=== PATIENT | female | born 1940 | race Caucasian/White ===

== ENCOUNTER 2019-08-31 16:06 | Inpatient (IN) ==
[2019-08-31] MEDS ORDERED: OPTIRAY 320 125ml IV PRN (16:19)
--- NOTE | 2019-08-31 16:26 | CT Scan Report ---
HEAD CT NONCONTRAST CT DOSE: 537.48 mGy.cm HISTORY: Stroke symptoms. Slurred speech. Facial droop. TECHNIQUE: Multiaxial CT images of the head were performed without the use of intravenous contrast. A utomated exposure control was utilized for this study. A dose lowering technique was utilized adheri ng to the principles of ALARA. Comparison: None. Findings: The paranasal sinuses and mastoid air cells are clear. The calvarium and skull base are int act. There is no mass, hematoma, midline shift, acute infarct. White matter hypodensity is nonspecifi c but suggestive of microvascular ischemic change. The ventricles and sulci demonstrate mild age-rela josesito involutional changes. Old lacunar infarcts within the left basal ganglia. Impression: No acute intracranial abnormality. Atrophy and microvascular ischemic changes. Electronically signed by: Jamal Murray M.D. 08/31/2019 4:25 PM
--- NOTE | 2019-08-31 16:39 | CT Scan Report ---
CT angio head w con CLINICAL HISTORY: 79 years-old Female presenting with left-sided weakness, concern for stroke. TECHNIQUE: Multidetector CT angiography of the head was performed after the administration of intrave nous contrast. 3-D volumetric and/or maximum intensity projection (MIP) images were subsequently boby nstructed for review. IV contrast: 119 mL of Optiray 320. One or more dose lowering techniques were u sed consistent with the principles of ALARA (as low as reasonably achievable), including automatic ex posure control, mA or kV adjustment to individual patient size, and/or use of iterative reconstructio n. COMPARISON: None. CT DOSE (mGy.cm): The estimated cumulative dose is 545.95. FINDINGS: Wet Washer Machine topogram: Unremarkable. Anterior circulation: Saccular aneurysm arising from the cavernous segment of the right internal arredondo tid artery, which massively expands the lumen along the medial wall with an overall measurement of 12 x 12 mm. Atherosclerosis of the bilateral cavernous segments. Anterior cerebral arteries patent. Mid dle cerebral arteries patent. Anterior communicating artery patent. Posterior circulation: Codominant vertebral arteries. Intradural portions of the vertebral arteries p atent. Posterior inferior cerebellar arteries patent. The basilar artery is patent with a bulbous melany earing basilar tip. Aneurysmally dilated basilar tip with a wide communication to the artery and its major branch vessels. Anterior inferior cerebellar arteries poorly visualized. Superior cerebellar ar teries patent. Posterior cerebral arteries patent. Posterior communicating arteries patent. Dural venous sinuses: Patent. Other: Allowing for the phase of contrast, brain parenchyma within normal limits. Calvarium intact. IMPRESSION: 1. 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 2. Aneurysm/aneurysmally dilated basilar tip with wide communication to the parent vessel and adjace nt major branch vessels. 3. No evidence of an intracranial stenosis or dissection. No focal occlusion. Electronically signed by: Hany Guzmán M.D. 08/31/2019 4:38 PM
--- NOTE | 2019-08-31 16:41 | CT Scan Report ---
NECK CTA HISTORY: Left-sided weakness. TECHNIQUE: Multiaxial CT images of the neck were performed following the intravenous administration o f contrast to evaluate the major cervical vessels. Maximum intensity projection images were also obta ined. All measurements were calculated based on NASCET criteria. A dose lowering technique was utili zed adhering to the principles of ALARA. COMPARISON STUDY: None. FINDINGS: The aortic arch and proximal great vessels are widely patent. No significant stenosis, occ lusion, or dissection within the bilateral vertebral arteries or bilateral common carotid arteries. M oderate calcified plaque within the bilateral carotid bifurcations. This results in up to 75% narrowi ng within the proximal bilateral internal carotid arteries. Tortuous and mild irregularity within the bilateral internal carotid arteries. There are 2 focal short segment dissections within the proximal left internal carotid artery best seen on image 238 and within the mid left internal carotid artery on image 265. Both lumens opacify. No evidence for arterial occlusion. Mild aneurysmal dilatation of the distal left internal carotid artery measuring up to 6 mm in diameter. Refer to same day head CT f or further evaluation of the skull base aneurysms. Emphysema. IMPRESSION: 1. 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 However, both lumens opacify. These are age indeterminate. 2. Up to 75% focal narrowing within the proximal bilateral internal carotid artery due to the calcifi ed plaque. 3. Tortuous and mild irregularity of the bilateral internal carotid arteries. Mild aneurysmal dilatat ion of the distal left internal carotid artery measure up to 6 mm in diameter. Electronically signed by: Jamal Murray M.D. 08/31/2019 4:40 PM
[2019-08-31 16:56] LABS: Basophils # (auto) 0.02 K/uL (0-0.2); Basophils % (auto) 0.3 %; Eosinophils # (auto) 0.27 K/uL (0-0.5); Eosinophils % (auto) 3.7 %; Hematocrit (blood only) 37.2 % (37-47); Hemoglobin 12.1 g/dL (12.0-16.0); Immature Granulocytes # (auto) 0.02 K/uL (0.00-0.02); Immature Granulocytes % (auto) 0.3 %; Lymphocytes # (auto) 2.43 K/uL (1.2-3.4); Lymphocytes % (auto) 33.1 %; Mean Corpuscular Hemoglobin 32.4 pg (25-34); Mean Corpuscular Hgb Conc 32.5 g/dL (32-36); Mean Corpuscular Volume 99.5 fL (80-100); Mean Platelet Volume 9.8 fL (7.4-10.4); Monocytes % (auto) 9.5 %; Neutrophils % (auto) 53.1 %; Platelet Count 172 K/uL (130-400); RDW Coefficient of Variation 14.1 % (11.5-14.5); Red Blood Count 3.74 M/uL (4.2-5.4); White Blood Count 7.34 K/uL (4.8-10.8)
--- NOTE | 2019-08-31 17:09 | XRay Report ---
XR chest 1V portable CLINICAL HISTORY: 79 years-old Female presenting with cva. TECHNIQUE: Portable upright AP view of the chest was obtained. COMPARISON: None. FINDINGS: Atherosclerosis of the aortic arch. Cardiac silhouette enlarged. Mild pulmonary vascular prominence. Heterogeneity lung parenchyma. Minimal basilar opacities. No pleural effusion or pneumothorax. Advanc ed degenerative changes and deformity of the left glenohumeral joint. Suspected underlying osteopenia . Upper abdomen normal. IMPRESSION: 1. Cardiomegaly with mild volume overload. No advanced congestive change or pulmonary edema. 2. Minimal bibasilar opacities likely atelectasis. Electronically signed by: Hany Guzmán M.D. 08/31/2019 5:08 PM
[2019-08-31 17:29] LABS: Alanine Aminotransferase 16 U/L (12-78); Albumin Globulin Ratio 0.9 (0.9-2); Albumin Level 3.3 gm/dl (3.4-5.0); Alkaline Phosphatase 66 U/L (45-117); BUN Creatinine Ratio 22.1 (10-20); Bilirubin,Total 0.4 mg/dl (0.2-1); Blood Urea Nitrogen 22 mg/dl (7-18); Calcium 8.9 mg/dl (8.5-10.1); Carbon Dioxide 22 mmol/L (21-32); Chloride 106 mmol/L (98-107); Creatinine Clr Calc Pharmacy 43.5 ml/min; Est GFR (African American) 61.3; Est GFR (Non-African American) 52.9; Globulin 3.7 gm/dl (2.5-4.0); Glucose 101 mg/dl (70-99); Sodium 136 mmol/L (136-145); Troponin I < 0.015 ng/ml (0-0.045)
--- NOTE | 2019-08-31 18:15 | History & Physical Report ---
Date of Service August 31, 2019 Assessment & Plan (1) TIA (transient ischemic attack): (2) Brain aneurysm: -Admit to [facility] with telemetry -Stroke order set completed -Neurology consulted, Dr. 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 A neurysm/aneurysmally dilated basilar tip with wide communication to the parent vessel and adjacent major branch vessels. No evidence of intracranial stenosis or dissection. No focal occlusion. -CT of the neck shows 75% focal narrowing within proximal bilateral internal carotid artery due to calcified plaque. Mild aneurysmal dilation of the distal left internal carotid measuring 6 mm -CT of the head is negative for acute intracranial abnormality -Follow UA as pt reports hx of UTIs and having episodes like this in the early phases of infection. Unable to provide a sample. Allow for attempt at clean catch per pt request, if not then will need straight cath. (3) Ischemic heart disease: (4) CAD (coronary artery disease): -ASA and Plavix as above -Hx of VT in Sep 2017 with 1 stent, unknown stent location. Procedure was done at [facility] in [place], [place]. (5) Chronic diastolic CHF (congestive heart failure): -Does not appear to be in any acute exacerbation -Continue Lasix, beta-hakeem, BLANK as above (6) HTN (hypertension): -Continue Lasix 20 mg every morning, ASA, metoprolol tartrate 75 mg BID (7) HLD (hyperlipidemia): -Continue atorvastatin 80 mg every afternoon, check a.m. fasting lipid panel (8) Osteoporosis: -Continue multivitamin, calcium, vitamin D, aldendromate 70 mg weekly (9) Vascular dementia: -Noted, no behavioral disturbances (10) Hypothyroidism: Levothyroxine 88 mcg daily (11) DVT prophylaxis: -Plavix, aspirin, teds CODE STATUS: DNR Disposition: From [facility] to assist with discharge planning, PT and OT consult (12) Depression: - phenelzine not available in house, daughter planning on bringing this from [facility] to continue while inpatient. - Stable on medication History of Present Illness Primary Care Provider: [facility] [place] This is a 79 yo F who resides in [facility] with PMHx of chronic diastolic CHF, HTN, CAD, history of syncope and collapse, HLD, ischemic heart disease, hypothyroidism, vascular dementia without behavioral disturbance, osteoporosis, history of UTI, who presents with acute strokelike symptoms. 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 It was also noted that she likely has vascular dementia. The patient is here with her daughter at bedside. She states that she woke up this morning and walked herself to breakfast, ate without any difficulty, then continued to go about her day but did not feel quite herself. She walked to the [facility] in [facility] to see one of the PAs on staff due to not feeling right. She noticed that she was having difficulty with walking and leaning towards the left side. She denies any slurred speech, blurry or double vision, or specific weakness. It was noted that she may have had a left upper extremity weakness earlier however this has completely resolved at this time. She denies any other acute complaints. Stroke protocol was initiated upon the patient's arrival to the ER. Dr. Woodruff, interventional neurologist, was consulted initially, and would like to see the patient for follow-up in his office in [place] in 2 weeks to follow-up 12 x 12 mm saccular aneurysm in the right ICA which was seen on CTA. Allergies Allergy/AdvReac Type Severity Reaction Status Date / Time bee venom protein (honey bee) Allergy Unknown Verified 08/31/19 17:25 codeine Allergy Unknown Verified 08/31/19 17:25 levofloxacin [From Levaquin] Allergy Unknown Verified 08/31/19 17:25 meperidine [From Demerol] Allergy Unknown Verified 08/31/19 17:25 morphine Allergy Unknown Verified 08/31/19 17:25 Home Medications Home Medications Medication Instructions Recorded Confirmed Type acetaminophen 650 mg 650 mg PO Q6 PRN tab 07/13/19 08/31/19 History tablet,extended release alendronate 70 mg tablet 70 mg PO WEEKLY tab 07/13/19 08/31/19 History aspirin 81 mg tablet,delayed 81 mg PO DAILY 07/13/19 08/31/19 History release atorvastatin 80 mg tablet 80 mg PO QPM 07/13/19 08/31/19 History clopidogrel 75 mg tablet 75 mg PO DAILY 07/13/19 08/31/19 History furosemide 20 mg tablet 20 mg PO QAM 07/13/19 08/31/19 History levothyroxine 88 mcg capsule 88 mcg PO DAILY 07/13/19 08/31/19 History lisinopril 5 mg tablet 5 mg PO DAILY 07/13/19 08/31/19 History melatonin 5 mg tablet 5 mg PO HS 07/13/19 08/31/19 History metoprolol tartrate 75 mg tablet 75 mg PO BID 07/13/19 08/31/19 History multivitamin 1 tab PO DAILY 07/13/19 08/31/19 History phenelzine 15 mg tablet 30 mg PO BID tab 07/13/19 08/31/19 History potassium chloride 20 mEq 20 meq PO BID 07/13/19 08/31/19 History tablet,extended release psyllium 1 pkt PO DAILY ea 07/13/19 08/31/19 History white petrolatum 1 applic TOPICAL UD PRN 07/13/19 08/31/19 History acetaminophen [Tylenol Arthritis 650 mg PO TID 08/31/19 08/31/19 History Pain] calcium carbonate-vitamin D3 1 tab PO DAILY 08/31/19 08/31/19 History [Calcium 600 + D(3)] ceramides 1,3,6-11 [CeraVe] 1 applic TOPICAL UD PRN 08/31/19 08/31/19 History gabapentin [Neurontin] 300 mg PO HS 08/31/19 08/31/19 History Past Med/Surg History Medical History (Updated 08/31/19 @ 18:53 by Yomaira Jurado PA-C) CAD (coronary artery disease) Chronic diastolic CHF (congestive heart failure) Coronary artery sclerosis Depression HLD (hyperlipidemia) HTN (hypertension) Hypothyroidism Ischemic heart disease Osteoporosis TIA (transient ischemic attack) Vascular dementia Social History Preferred Language: Scottish Communication Ability: Effective Coding Director Required: No Beliefs That Will Affect Care: None Current Living Situation: Care Home Current Living Situation Comment: [facility] Other Information That Helps Us Care for You: No Feels Safe at Home: Yes Safety Concerns: Feels Safe At This Time Smoking Status: Former smoker Hx Alcohol Use: No Hx Substance Use: No Review of Systems Review of Systems: Constitutional: No fever, sweats or chills Eyes: No diplopia, no worsening or blurred vision ENT: normal hearing, no trouble swallowing Respiratory: No cough, sputum, dyspnea at rest or on exertion Cardiovascular: No chest pain, tightness or palpitations Abdomen: No pain, nausea, vomiting, diarrhea or constipation Musculoskeletal: No joint pain, calf pain, swelling Neurologic: No weakness, numbness/tingling, or balance problems Psychiatric: No anxiety or depression Skin: No rash or itch Physical Exam Physical Exam: General: awake, alert, no apparent distress Head: Normocephalic, atraumatic ENT: PERRL, EOMI, no pharyngeal exudate, mucous membranes moist Chest: Clear to auscultation, on room air, no adventitious breath sounds Cardiac: Regular rate and rhythm, + systolic ejection murmur, no JVD, normal peripheral pulses, good capillary refill Abdominal: NABS x 4 quadrants, soft, nondistended, nontender to palpation, no rebound, guarding or tenderness Extremities: Normal inspection, no peripheral edema or erythema, calfs nontender to palpation Psych: Normal mood and affect Neuro: AAO x 3, strength intact bilaterally and rated 5/5, no motor deficits, speech is clear, no peripheral sensory deficits Skin: no rash or erythema Constitutional: WD/WN, vitals as above Eyes: normal visual rodriguez by confrontation and + anicteric sclerae Neck: normal visual inspection and trachea midline Respiratory: normal respiratory effort, lungs clear to auscultation Cardiovascular: Rate/Rhythm: regular rate and regular rhythm Gastrointestinal (Abdomen): Inspection/Auscultation: abdomen not distended Percussion/Palpation: abdomen soft; abdomen nontender Musculoskeletal: Head/Neck/Chest: normocephalic and head atraumatic Neg for peripheral LE edema, + pedal pulses Skin: no rashes, warm and dry Neurologic: awake; not confused Speech / Cognition: normal speech Psychiatric: A+Ox3, euthymic affect Lymphatic: Exam as done by Giselle Katz DO Results & Data Vital Signs (Past 12 Hours) Vital Signs Temp Pulse Pulse Resp BP BP Pulse Ox 08/31/19 17:31 60 16 95/78 L 96 08/31/19 17:30 58 L 15 97 08/31/19 17:21 58 L 18 141/65 H 97 08/31/19 17:20 58 L 18 97 08/31/19 17:11 60 21 141/45 H 97 08/31/19 17:10 60 18 97 08/31/19 17:02 62 21 96 08/31/19 17:01 62 17 161/69 H 97 08/31/19 17:00 69 19 98 08/31/19 16:51 63 26 H 159/80 H 96 08/31/19 16:50 63 20 97 08/31/19 16:43 63 21 175/62 H 96 08/31/19 16:40 63 18 96 08/31/19 16:35 66 16 95 08/31/19 16:13 37.3 C 70 70 17 175/62 H 175/62 [address] angio head w con CLINICAL HISTORY: 79 years-old Female presenting with left-sided weakness, concern for stroke. TECHNIQUE: Multidetector CT angiography of the head was performed after the administration of intravenous contrast. 3-D volumetric and/or maximum intensity projection (MIP) images were subsequently reconstructed for review. IV contrast: 119 mL of Optiray 320. One or more dose lowering techniques were used consistent with the principles of ALARA (as low as reasonably achievable), including automatic exposure control, mA or kV adjustment to individual patient size, and/or use of iterative reconstruction. COMPARISON: None. CT DOSE (mGy.cm): The estimated cumulative dose is 545.95. FINDINGS: Card Decorator topogram: Unremarkable. Anterior circulation: Saccular aneurysm arising from the cavernous segment of the right internal carotid artery, which massively expands the lumen along the medial wall with an overall measurement of 12 x 12 mm. Atherosclerosis of the bilateral cavernous segments. Anterior cerebral arteries patent. Middle cerebral arteries patent. Anterior communicating artery patent. Posterior circulation: Codominant vertebral arteries. Intradural portions of the vertebral arteries patent. Posterior inferior cerebellar arteries patent. The basilar artery is patent with a bulbous appearing basilar tip. Aneurysmally dilated basilar tip with a wide communication to the artery and its major branch vessels. Anterior inferior cerebellar arteries poorly visualized. Superior cerebellar arteries patent. Posterior cerebral arteries patent. Posterior communicating arteries patent. Dural venous sinuses: Patent. Other: Allowing for the phase of contrast, brain parenchyma within normal limits. Calvarium intact. IMPRESSION: 1. 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 2. Aneurysm/aneurysmally dilated basilar tip with wide communication to the parent vessel and adjacent major branch vessels. 3. No evidence of an intracranial stenosis or dissection. No focal occlusion. XR chest 1V portable CLINICAL HISTORY: 79 years-old Female presenting with cva. TECHNIQUE: Portable upright AP view of the chest was obtained. COMPARISON: None. FINDINGS: Atherosclerosis of the aortic arch. Cardiac silhouette enlarged. Mild pulmonary vascular prominence. Heterogeneity lung parenchyma. Minimal basilar opacities. No pleural effusion or pneumothorax. Advanced degenerative changes and deformity of the left glenohumeral joint. Suspected underlying osteopenia. Upper abdomen normal. IMPRESSION: 1. Cardiomegaly with mild volume overload. No advanced congestive change or pulmonary edema. 2. Minimal bibasilar opacities likely atelectasis. NECK CTA HISTORY: Left-sided weakness. TECHNIQUE: Multiaxial CT images of the neck were performed following the intravenous administration of contrast to evaluate the major cervical vessels. Maximum intensity projection images were also obtained. All measurements were calculated based on NASCET criteria. A dose lowering technique was utilized adhering to the principles of ALARA. COMPARISON STUDY: None. FINDINGS: The aortic arch and proximal great vessels are widely patent. No significant stenosis, occlusion, or dissection within the bilateral vertebral arteries or bilateral common carotid arteries. Moderate calcified plaque within the bilateral carotid bifurcations. This results in up to 75% narrowing within the proximal bilateral internal carotid arteries. Tortuous and mild irregularity within the bilateral internal carotid arteries. There are 2 focal short segment dissections within the proximal left internal carotid artery best seen on image 238 and within the mid left internal carotid artery on image 265. Both lumens opacify. No evidence for arterial occlusion. Mild aneurysmal dilatation of the distal left internal carotid artery measuring up to 6 mm in diameter. Refer to same day head CT for further evaluation of the skull base aneurysms. Emphysema. IMPRESSION: 1. 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 However, both lumens opacify. These are age indeterminate. 2. Up to 75% focal narrowing within the proximal bilateral internal carotid artery due to the calcified plaque. 3. Tortuous and mild irregularity of the bilateral internal carotid arteries. Mild aneurysmal dilatation of the distal left internal carotid artery measure up to [address] diameter[address] HEAD CT NONCONTRAST CT DOSE: 537.48 mGy.cm HISTORY: Stroke symptoms. Slurred speech. Facial droop. TECHNIQUE: Multiaxial CT images of the head were performed without the use of intravenous contrast. Automated exposure control was utilized for this study. A dose lowering technique was utilized adhering to the principles of ALARA. Comparison: None. Findings: The paranasal sinuses and mastoid air cells are clear. The calvarium and skull base are intact. There is no mass, hematoma, midline shift, acute infarct. White matter hypodensity is nonspecific but suggestive of microvascular ischemic change. The ventricles and sulci demonstrate mild age-related involutional changes. Old lacunar infarcts within the left basal ganglia. Impression: No acute intracranial abnormality. Atrophy and microvascular ischemic changes. ECG Additional Comments: 31-AUG-2019 16:31:10 [facility]-EDSTAT ROUTINE RETRIEVAL Normal sinus rhythm Possible Left atrial enlargement Borderline ECG No previous ECGs available 25mm/s 10mm/mV 150Hz 9.0.9 12SL 241 PITER: 13 Unconfirmed Vent. rate 67 BPM FL interval 188 ms QRS duration 66 ms QT/QTc 442/467 ms P-R-T axes 63 57 52 Code Status & VTE Plan Code Status DNR-discussed with the patient and her daughter at bedside VTE Prophylaxis Plan VTE Prophylaxis will be ordered: Yes Supervising Physician Co-Signing Physician Notes Pt seen and examined by me. States she feels at her usual at present. No further weakness or slurred speech. Denies chest pain or SOB. Tolerating PO without issue. Agree with HPI/ROS as noted by PA See above for my exam in PE section Agree with plan as outlined above TIA vs CVA, given quick resolution of sx-likely TIA [facility] recs for stroke workup Pt is hesitant about MRI, has required PRN ativan in the past, but not with most recent MRI per daughter Pt is also worried about ativan dosing, will use 0.25mg if needed and can repeat x1 Aneurysms noted [facility] interventional neurology, Dr. Woodruff, recs for f/u with him in 2 weeks. CM to assist in planning Believes unlikely to have caused sx Pt takes aspirin/plavix at baseline PG Care Time/CCT Total # of Minutes Spent Total Time Spent with Patient: Total time spent is greater than 50% in coordination of care (as documented) at patient's floor/unit and/or counseling patient:
[2019-08-31 18:18] LABS: Partial Thromboplastin Ratio 0.9; Partial Thromboplastin Time 25.3 Seconds (21.0-31.0); Prothrombin Time 10.2 Seconds (9.0-12.0)
[2019-08-31 18:21] LABS: Potassium 4.8 mmol/L (3.5-5.1)
[2019-08-31 18:25] LABS: Magnesium 2.2 mg/dl (1.8-2.4)
[2019-08-31] MEDS ORDERED: PHARMACIST DISCHARGE MED REC CONSULT PRN (19:51)
[2019-08-31] MEDS ORDERED: LORazepam 0.25 MG/0.5 ML VIAL IV PRN (19:51)
[2019-08-31 20:05] LABS: Appearance Urine Clear (Clear); Bilirubin Urine Negative (Negative); Blood Urine Negative (Negative); Color Urine Yellow; Glucose Urine UA Negative (Negative); Ketones Urine Negative (Negative); Leukocyte Esterase Urine Negative (Negative); Nitrite Urine Negative (Negative); Protein Urine Negative (Negative); Specific Gravity Urine 1.045 (1.000-1.030); Urobilinogen Urine Negative (Negative)
[2019-08-31] MEDS ORDERED: ACETAMINOPHEN 325 MG TAB PO PRN (20:21)
[2019-08-31] MEDS ORDERED: PHENELZINE 15 MG PO SCH (21:00)
[2019-08-31] MEDS ORDERED: NON-FORMULARY MEDICATION (Melatonin 5 MG) PO SCH (21:00)
[2019-08-31] MEDS: ACETAMINOPHEN 325 MG TAB PO SCH (21:34)
[2019-08-31] MEDS: ATORVASTATIN 40 MG TAB PO SCH (21:35)
[2019-08-31] MEDS: METOPROLOL TARTRATE 25 MG TAB PO SCH (21:36)
[2019-08-31] MEDS: GABAPENTIN 300 MG CAP PO SCH (21:36)
[2019-08-31] MEDS: POTASSIUM CHLORIDE 20 MEQ TABCR PO SCH (21:36)
--- NOTE | 2019-08-31 22:45 | Emergency Department Note ---
Entered by Nicole Moss acting as a scribe for History of Present Illness General Chief complaint: Stroke Alert Stated complaint: STROKE ALERT Source: patient and EMS Mode of arrival: EMS History of Present Illness Onset (ago): hour(s) (1500 today) Location: head (weakness) Severity: similar to prior episodes Pain Consistency: + other (sudden) Quality: + other (weakness) Associated symptoms: + weakness and + other (Slurred speech, facial droop) Treatments prior to arrival: none The patient is a 79 year old female presenting to the Emergency Department via EMS complaining of sudden weakness starting at 1500 today. EMS reports that the patient resides at [facility] in the Dementia unit. They state that the patients left upper and lower extremity were weaker than her right upper and lower extremities. They explain that the patient had a left sided facial droop and was slurring her speech. They note that the patients weakness has since resolved. They add that the patients last known well time was 1500. 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 The patients daughter who is at bedside reports that the patient has vascular dementia and has a history of TIAs. She states that she was not with the patient when the patients symptoms began. She notes that the patient regularly takes Plavix. The patient reports that she did not feel right at 1500 today. She states that she came out of her room at that time and told a nurse. Home Medications Home Medications Medication Instructions Recorded Confirmed Type acetaminophen 650 mg 650 mg PO Q6 PRN tab 07/13/19 08/31/19 History tablet,extended release alendronate 70 mg tablet 70 mg PO WEEKLY tab 07/13/19 08/31/19 History aspirin 81 mg tablet,delayed 81 mg PO DAILY 07/13/19 08/31/19 History release atorvastatin 80 mg tablet 80 mg PO QPM 07/13/19 08/31/19 History clopidogrel 75 mg tablet 75 mg PO DAILY 07/13/19 08/31/19 History furosemide 20 mg tablet 20 mg PO QAM 07/13/19 08/31/19 History levothyroxine 88 mcg capsule 88 mcg PO DAILY 07/13/19 08/31/19 History lisinopril 5 mg tablet 5 mg PO DAILY 07/13/19 08/31/19 History melatonin 5 mg tablet 5 mg PO HS 07/13/19 08/31/19 History metoprolol tartrate 75 mg tablet 75 mg PO BID 07/13/19 08/31/19 History multivitamin 1 tab PO DAILY 07/13/19 08/31/19 History phenelzine 15 mg tablet 30 mg PO BID tab 07/13/19 08/31/19 History potassium chloride 20 mEq 20 meq PO BID 07/13/19 08/31/19 History tablet,extended release psyllium 1 pkt PO DAILY ea 07/13/19 08/31/19 History white petrolatum 1 applic TOPICAL UD PRN 07/13/19 08/31/19 History acetaminophen [Tylenol Arthritis 650 mg PO TID 08/31/19 08/31/19 History Pain] calcium carbonate-vitamin D3 1 tab PO DAILY 08/31/19 08/31/19 History [Calcium 600 + D(3)] ceramides 1,3,6-11 [CeraVe] 1 applic TOPICAL UD PRN 08/31/19 08/31/19 History gabapentin [Neurontin] 300 mg PO HS 08/31/19 08/31/19 History Allergies Allergy/AdvReac Type Severity Reaction Status Date / Time bee venom protein (honey bee) Allergy Unknown Verified 08/31/19 17:25 codeine Allergy Unknown Verified 08/31/19 17:25 levofloxacin [From Levaquin] Allergy Unknown Verified 08/31/19 17:25 meperidine [From Demerol] Allergy Unknown Verified 08/31/19 17:25 morphine Allergy Unknown Verified 08/31/19 17:25 Past Med/Surg History Medical History (Updated 08/31/19 @ 18:53 by Yomaira Jurado PA-C) CAD (coronary artery disease) Chronic diastolic CHF (congestive heart failure) Coronary artery sclerosis Depression HLD (hyperlipidemia) HTN (hypertension) Hypothyroidism Ischemic heart disease Osteoporosis TIA (transient ischemic attack) Vascular dementia Social History Preferred Language: Georgian Communication Ability: Effective Supervisor Carbon Electrodes Required: No Beliefs That Will Affect Care: None Current Living Situation: Long Term Current Living Situation Comment: [facility] Other Information That Helps Us Care for You: No Feels Safe at Home: Yes Safety Concerns: Feels Safe At This Time Smoking Status: Former smoker Hx Alcohol Use: No Hx Substance Use: No Review of Systems See HPI for pertinent positives & negatives. and A total of 10 systems reviewed and were otherwise negative Physical Exam Vital Signs Vital Signs - 24 hr 08/31/19 16:13 08/31/19 16:35 08/31/19 16:40 Temperature 37.3 C Temperature Source Oral Pulse Rate 70 66 63 Pulse Rate [Finger] 70 Pulse Rate from SpO2 Sensor 67 64 Respiratory Rate 17 16 18 Blood Pressure 175/62 H Blood Pressure [Right Arm] 175/62 H Blood Pressure Mean 99 Blood Pressure Mean [Right Arm] 99 Pulse Oximetry 96 95 96 Oxygen Delivery Method Nasal Cannula Nasal Cannula Nasal Cannula Oxygen Flow Rate 3 3 3 Sepsis Recent Fever Within 48 Hours No Sepsis New/Unexplained Change in Mental Status No Sepsis Action Taken by Nursing No Action Required 08/31/19 16:43 08/31/19 16:50 08/31/19 16:51 Temperature Temperature Source Pulse Rate 63 63 63 Pulse Rate [Finger] Pulse Rate from SpO2 Sensor 63 63 64 Respiratory Rate 21 20 26 H Blood Pressure 175/62 H 159/80 H Blood Pressure [Right Arm] Blood Pressure Mean 74 111 Blood Pressure Mean [Right Arm] Pulse Oximetry 96 97 96 Oxygen Delivery Method Nasal Cannula Nasal Cannula Nasal Cannula Oxygen Flow Rate 3 3 3 Sepsis Recent Fever Within 48 Hours Sepsis New/Unexplained Change in Mental Status Sepsis Action Taken by Nursing 08/31/19 17:00 08/31/19 17:01 08/31/19 17:02 Temperature Temperature Source Pulse Rate 69 62 62 Pulse Rate [Finger] Pulse Rate from SpO2 Sensor 63 62 62 Respiratory Rate 19 17 21 Blood Pressure 161/69 H Blood Pressure [Right Arm] Blood Pressure Mean 113 Blood Pressure Mean [Right Arm] Pulse Oximetry 98 97 96 Oxygen Delivery Method Nasal Cannula Nasal Cannula Nasal Cannula Oxygen Flow Rate 3 3 3 Sepsis Recent Fever Within 48 Hours Sepsis New/Unexplained Change in Mental Status Sepsis Action Taken by Nursing 08/31/19 17:10 08/31/19 17:11 08/31/19 17:20 Temperature Temperature Source Pulse Rate 60 60 58 L Pulse Rate [Finger] Pulse Rate from SpO2 Sensor 60 60 58 L Respiratory Rate 18 21 18 Blood Pressure 141/45 H Blood Pressure [Right Arm] Blood Pressure Mean 67 Blood Pressure Mean [Right Arm] Pulse Oximetry 97 97 97 Oxygen Delivery Method Nasal Cannula Nasal Cannula Nasal Cannula Oxygen Flow Rate 3 3 3 Sepsis Recent Fever Within 48 Hours Sepsis New/Unexplained Change in Mental Status Sepsis Action Taken by Nursing 08/31/19 17:21 08/31/19 17:30 08/31/19 17:31 Temperature Temperature Source Pulse Rate 58 L 58 L 60 Pulse Rate [Finger] Pulse Rate from SpO2 Sensor 58 L 57 L 60 Respiratory Rate 18 15 16 Blood Pressure 141/65 H 95/78 L Blood Pressure [Right Arm] Blood Pressure Mean 95 81 Blood Pressure Mean [Right Arm] Pulse Oximetry 97 97 96 Oxygen Delivery Method Nasal Cannula Nasal Cannula Nasal Cannula Oxygen Flow Rate 3 3 3 Sepsis Recent Fever Within 48 Hours Sepsis New/Unexplained Change in Mental Status Sepsis Action Taken by Nursing 08/31/19 17:40 08/31/19 17:41 08/31/19 17:50 Temperature Temperature Source Pulse Rate 59 L 58 L 61 Pulse Rate [Finger] Pulse Rate from SpO2 Sensor 60 58 L 61 Respiratory Rate 19 19 17 Blood Pressure 170/58 H Blood Pressure [Right Arm] Blood Pressure Mean 92 Blood Pressure Mean [Right Arm] Pulse Oximetry 97 97 98 Oxygen Delivery Method Nasal Cannula Nasal Cannula Nasal Cannula Oxygen Flow Rate 3 3 3 Sepsis Recent Fever Within 48 Hours Sepsis New/Unexplained Change in Mental Status Sepsis Action Taken by Nursing 08/31/19 17:51 08/31/19 18:00 08/31/19 18:01 Temperature Temperature Source Pulse Rate 60 58 L 58 L Pulse Rate [Finger] Pulse Rate from SpO2 Sensor 59 L 58 L 58 L Respiratory Rate 17 17 19 Blood Pressure 141/73 H 157/61 H Blood Pressure [Right Arm] Blood Pressure Mean 86 87 Blood Pressure Mean [Right Arm] Pulse Oximetry 98 98 98 Oxygen Delivery Method Nasal Cannula Nasal Cannula Nasal Cannula Oxygen Flow Rate 3 3 3 Sepsis Recent Fever Within 48 Hours Sepsis New/Unexplained Change in Mental Status Sepsis Action Taken by Nursing 08/31/19 18:10 08/31/19 18:11 Temperature Temperature Source Pulse Rate 58 L 58 L Pulse Rate [Finger] Pulse Rate from SpO2 Sensor 58 L 58 L Respiratory Rate 16 17 Blood Pressure 137/61 Blood Pressure [Right Arm] Blood Pressure Mean 100 Blood Pressure Mean [Right Arm] Pulse Oximetry 98 98 Oxygen Delivery Method Nasal Cannula Nasal Cannula Oxygen Flow Rate 3 3 Sepsis Recent Fever Within 48 Hours Sepsis New/Unexplained Change in Mental Status Sepsis Action Taken by Nursing GENERAL: Patient is sitting up in stretcher, on nasal cannula. Talking full sentences. Non-toxic. EYE EXAM: normal conjunctiva, PERRL and EOM's intact OROPHARYNX: no exudate, no erythema, lips, buccal mucosa, and tongue normal and mucous membranes are moist NECK: supple, no nuchal rigidity, no adenopathy, non-tender LUNGS: Clear to auscultation. Normal chest wall mechanics HEART: no murmurs, S1 normal and S2 normal ABDOMEN: abdomen soft, non-tender, normo-active bowel sounds, no masses, no rebound or guarding. BACK: Back is symmetrical on inspection and there is no deformity, no midline tenderness, no CVA tenderness. SKIN: no rashes and no bruising UPPER EXTREMITIES: upper extremities are grossly normal. LOWER EXTREMITIES: No pitting edema. NEURO EXAM: Oriented to person, place and year but not month. Cranial nerves II- XII intact, normal speech, mild weakness with the left upper extremity on flexion extension of the elbow (old per pt), no weakness of legs. No drift. Finger to nose intact. Gross sensation intact. Course Course ED COURSE: Vital signs were reviewed and showed hypertension. The patients medical record was reviewed The above diagnostic studies were performed and reviewed. ED treatments and interventions as stated above. 1605: Upon speaking to EMS, the patient had a left sided facial droop at and left sided weakness. They report that the patients speech is slurred. They states that the patients weakness has resolved but that the patients speech is still slurred. They note that the patients last know well time was 1500 today. 1611: The patient was evaluated in room B1. A complete history and physical examination was performed. 1625 I discussed the patients case with [facility] telestroke neurologist. 1630: Telestroke neurology began to evaluate the patient at this time. 1635: I discussed the patients case with her nurse at [facility]. She reports that the patient was in her room and came out, telling her that she didnt feel right. She states that the patient had slurred speech and that her left upper extremity was week compared to the right. 1636: I updated the patient and her daughter at this time. 1655: I discussed the patients case with Dr. Kacy Gallego Vascular neurologist. He recommends that the patient following up in 2 weeks regarding her aneurysm and focal dissection. He doesnt think they are causing the patie nts symptoms. 1747: I updated the patients daughter at this time. 1800: I discussed the patients case with Dr. Katz [facility] hospitalist. She will evaluate the patient for further management. 1802: Upon reevaluation, I discussed my findings with the patient and her daughter who understands and agrees with the treatment plan. Based on the patients age, coexisting illnesses, exam and lab findings the decision to treat as an inpatient was made. The patient remained stable while under my care. The patient will be evaluated for further management. Administered Medications Acetaminophen (Tylenol) 650 mg PO TID CHARLEEN Stop: 09/30/19 20:59 Last Admin: 08/31/19 21:34 Dose: 650 mg Documented by: [id number] Atorvastatin Calcium (Lipitor) 80 mg PO QPM CHARLEEN Stop: 09/30/19 20:59 Last Admin: 08/31/19 21:35 Dose: 80 mg Documented by: [id number] Gabapentin (Neurontin) 300 mg PO HS CHARLEEN Stop: 09/30/19 20:59 Last Admin: 08/31/19 21:36 Dose: 300 mg Documented by: [id number] Ioversol (Optiray 320 125ml) 119 ml IV ONCE PRN PRN Reason: Interaction Checking Stop: 09/04/19 16:18 Last Admin: 08/31/19 16:20 Dose: 119 ml Documented by: [id number] Metoprolol Tartrate (Lopressor) 75 mg PO BID CHARLEEN Stop: 09/30/19 20:59 Last Admin: 08/31/19 21:36 Dose: 75 mg Documented by: [id number] Phenelzine 15mg Tab - Non-Formulary Patient's Own Med 2 ea PO BID CHARLEEN Stop: 09/30/19 20:59 Last Admin: 08/31/19 21:33 Dose: 30 mg Documented by: [id number] Potassium Chloride (Klor-Con M20) 20 meq PO BID CHARLEEN Stop: 09/30/19 20:59 Last Admin: 08/31/19 21:36 Dose: 20 meq Documented by: [id number] Critical Care Time Critical Care Time: Yes Total Critical Care Time: 32 I have personally spent 32 minutes of critical care time in the direct management of this patient. This includes bedside care, interpretation of diagnostic studies, and testing, discussion with consultants, patient, and f amily members, and other required patient management activities. This 32 minutes is in excess of all separately billable procedures. Medical Decision Making Differential Diagnosis Differential Diagnosis includes but is not limited to ischemic Stroke, hemorrhagic stroke, bells palsy, mass, neoplasm, migraine headache, seizure, subarachnoid hemorrhage, TIA, and transient global amnesia. Medical Records Attestation: I reviewed the patient's medical records. Home Medications Current Medication List: was personally reviewed by me Laboratory Data Attestation: I reviewed the patient's lab results. Result diagrams: 08/31/19 16:44 08/31/19 17:52 Lab Results 08/31/19 08/31/19 08/31/19 Range/Units 16:44 16:44 16:44 WBC 7.34 (4.8-10.8) K/uL RBC 3.74 L (4.2-5.4) M/uL Hgb 12.1 (12.0-16.0) g/dL Hct 37.2 (37-47) % MCV 99.5 (80-100) fL MCH 32.4 (25-34) pg MCHC 32.5 (32-36) g/dL RDW Std Deviation 50.0 H (36.4-46.3) fL RDW Coeff of Abby 14.1 (11.5-14.5) % Plt Count 172 (130-400) K/uL MPV 9.8 (7.4-10.4) fL Immature Gran % (Auto) 0.3 % Neut % (Auto) 53.1 % Lymph % (Auto) 33.1 % [place] % (Auto) 9.5 % Eos % (Auto) 3.7 % Baso % (Auto) 0.3 % Immature Gran # (Auto) 0.02 (0.00-0.02) K/uL Neut # (Auto) 3.90 (1.4-6.5) K/uL Lymph # (Auto) 2.43 (1.2-3.4) K/uL [place] # (Auto) 0.70 H (0.11-0.59) K/uL Eos # (Auto) 0.27 (0-0.5) K/uL Baso # (Auto) 0.02 (0-0.2) K/uL PT Cancelled INR Cancelled APTT Cancelled PTT Ratio Cancelled Sodium 136 (136-145) mmol/L Potassium (3.5-5.1) mmol/L Chloride 106 (98-107) mmol/L Carbon Dioxide 22 (21-32) mmol/L Anion Gap 8.0 (3-11) BUN 22 H (7-18) mg/dl Creatinine 1.01 (0.6-1.2) mg/dl Est Cr Clr Drug Dosing 43.5 ml/min Est GFR ( Amer) 61.3 Est GFR (Non-Af Amer) 52.9 BUN/Creatinine Ratio 22.1 H (10-20) Glucose 101 H (70-99) mg/dl Calcium 8.9 (8.5-10.1) mg/dl Magnesium (1.8-2.4) mg/dl Total Bilirubin 0.4 (0.2-1) mg/dl AST (15-37) U/L ALT 16 (12-78) U/L Alkaline Phosphatase 66 (45-117) U/L Troponin I < 0.015 (0-0.045) ng/ml Total Protein 7.0 (6.4-8.2) gm/dl Albumin 3.3 L (3.4-5.0) gm/dl Globulin 3.7 (2.5-4.0) gm/dl Albumin/Globulin Ratio 0.9 (0.9-2) Blood Type Antibody Screen 08/31/19 08/31/19 08/31/19 Range/Units 16:44 17:52 17:52 WBC (4.8-10.8) K/uL RBC (4.2-5.4) M/uL Hgb (12.0-16.0) g/dL Hct (37-47) % MCV (80-100) fL MCH (25-34) pg MCHC (32-36) g/dL RDW Std Deviation (36.4-46.3) fL RDW Coeff of Abby (11.5-14.5) % Plt Count (130-400) K/uL MPV (7.4-10.4) fL Immature Gran % (Auto) % Neut % (Auto) % Lymph % (Auto) % [place] % (Auto) % Eos % (Auto) % Baso % (Auto) % Immature Gran # (Auto) (0.00-0.02) K/uL Neut # (Auto) (1.4-6.5) K/uL Lymph # (Auto) (1.2-3.4) K/uL [place] # (Auto) (0.11-0.59) K/uL Eos # (Auto) (0-0.5) K/uL Baso # (Auto) (0-0.2) K/uL PT 10.2 INR 1.0 APTT 25.3 PTT Ratio 0.9 Sodium (136-145) mmol/L Potassium 4.8 (3.5-5.1) mmol/L Chloride (98-107) mmol/L Carbon Dioxide (21-32) mmol/L Anion Gap (3-11) BUN (7-18) mg/dl Creatinine (0.6-1.2) mg/dl Est Cr Clr Drug Dosing ml/min Est GFR ( Amer) Est GFR (Non-Af Amer) BUN/Creatinine Ratio (10-20) Glucose (70-99) mg/dl Calcium (8.5-10.1) mg/dl Magnesium 2.2 (1.8-2.4) mg/dl Total Bilirubin (0.2-1) mg/dl AST 26 (15-37) U/L ALT (12-78) U/L Alkaline Phosphatase (45-117) U/L Troponin I (0-0.045) ng/ml Total Protein (6.4-8.2) gm/dl Albumin (3.4-5.0) gm/dl Globulin (2.5-4.0) gm/dl Albumin/Globulin Ratio (0.9-2) Blood Type O Positive Antibody Screen NEGATIVE Imaging Data Radiologist's Impression: Radiology results as stated below per my review and the radiologist's interpretation: CT angio head w con CLINICAL HISTORY: 79 years-old Female presenting with left-sided weakness, co ncern for stroke. TECHNIQUE: Multidetector CT angiography of the head was performed after the administration of intravenous contrast. 3-D volumetric and/or maximum intensity projection (MIP) images were subsequently reconstructed for review. IV contrast: 119 mL of Optiray 320. One or more dose lowering techniques were used consistent with the principles of ALARA (as low as reasonably achievable), including automatic exposure control, mA or kV adjustment to individual patient size, and/or use of iterative reconstruction. COMPARISON: None. CT DOSE (mGy.cm): The estimated cumulative dose is 545.95. FINDINGS: Marble Supervisor topogram: Unremarkable. Anterior circulation: Saccular aneurysm arising from the cavernous segment of the right internal carotid artery, which massively expands the lumen along the medial wall with an overall measurement of 12 x 12 mm. Atherosclerosis of the bilateral cavernous segments. Anterior cerebral arteries patent. Middle cerebral arteries patent. Anterior communicating artery patent. Posterior circulation: Codominant vertebral arteries. Intradural portions of the vertebral arteries patent. Posterior inferior cerebellar arteries patent. The basilar artery is patent with a bulbous appearing basilar tip. Aneurysmally dilated basilar tip with a wide communication to the artery and its major branch vessels. Anterior inferior cerebellar arteries poorly visualized. Superior cerebellar arteries patent. Posterior cerebral arteries patent. Posterior communicating arteries patent. Dural venous sinuses: Patent. Other: Allowing for the phase of contrast, brain parenchyma within normal limits. Calvarium intact. IMPRESSION: 1. 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 2. Aneurysm/aneurysmally dilated basilar tip with wide communication to the parent vessel and adjacent major branch vessels. 3. No evidence of an intracranial stenosis or dissection. No focal occlusion. Electronically signed by: Hany Guzmán M.D. 08/31/2019 4:[address]AST CT DOSE: 537.48 mGy.cm HISTORY: Stroke symptoms. Slurred speech. Facial droop. TECHNIQUE: Multiaxial CT images of the head were performed without the use of intravenous contrast. Automated exposure control was utilized for this study. A dose lowering technique was utilized adhering to the principles of ALARA. Comparison: None. Findings: The paranasal sinuses and mastoid air cells are clear. The calvarium and skull base are intact. There is no mass, hematoma, midline shift, acute i nfarct. White matter hypodensity is nonspecific but suggestive of microvascular ischemic change. The ventricles and sulci demonstrate mild age-related involutional changes. Old lacunar infarcts within the left basal ganglia. Impression: No acute intracranial abnormality. Atrophy and microvascular ischemic changes. Electronically signed by: Jamal Murray M.D. 08/31/2019 4:25 PM NECK CTA HISTORY: Left-sided weakness. TECHNIQUE: Multiaxial CT images of the neck were performed following the intravenous administration of contrast to evaluate the major cervical vessels. Maximum intensity projection images were also obtained. All measurements were calculated based on NASCET criteria. A dose lowering technique was utilized adhering to the principles of ALARA. COMPARISON STUDY: None. FINDINGS: The aortic arch and proximal great vessels are widely patent. No significant stenosis, occlusion, or dissection within the bilateral vertebral a rteries or bilateral common carotid arteries. Moderate calcified plaque within the bilateral carotid bifurcations. This results in up to 75% narrowing within the proximal bilateral internal carotid arteries. Tortuous and mild irregularity within the bilateral internal carotid arteries. There are 2 focal short segment dissections within the proximal left internal carotid artery best seen on image 238 and within the mid left internal carotid artery on image 265. Both lumens opacify. No evidence for arterial occlusion. Mild aneurysmal dilatation of the distal left internal carotid artery measuring up to 6 mm in diameter. Refer to same day head CT for further evaluation of the skull base aneurysms. Emphysema. IMPRESSION: 1. 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 However, both lumens opacify. These are age indeterminate. 2. Up to 75% focal narrowing within the proximal bilateral internal carotid artery due to the calcified plaque. 3. Tortuous and mild irregularity of the bilateral internal carotid arteries. Mild aneurysmal dilatation of the distal left internal carotid artery measure up to 6 mm in diameter. Electronically signed by: Jamal Murray M.D. 08/31/2019 4:40 PM XR chest 1V portable CLINICAL HISTORY: 79 years-old Female presenting with cva. TECHNIQUE: Portable upright AP view of the chest was obtained. COMPARISON: None. FINDINGS: Atherosclerosis of the aortic arch. Cardiac silhouette enlarged. Mild pulmonary vascular prominence. Heterogeneity lung parenchyma. Minimal basilar opacities. No pleural effusion or pneumothorax. Advanced degenerative changes and deformity of the left glenohumeral joint. Suspected underlying osteopenia. Upper abdomen normal. IMPRESSION: 1. Cardiomegaly with mild volume overload. No advanced congestive change or pulmonary edema. 2. Minimal bibasilar opacities likely atelectasis. Electronically signed by: Hany Guzmán M.D. 08/31/2019 5:08 PM ECG Data Attestation: I personally reviewed and interpreted this ECG as follows: Indication: + weakness Rate (beats per minute): 67 Rhythm: + sinus rhythm ECG [place]: + Normal ECG Findings: + Other (Poor baseline in anterior leads. Inferior Q waves. QTC normal. ); no PVCs Blood Pressure Blood Pressure Findings: Elevated blood pressure Blood Pressure Disposition: further management by hospitalist MDM Narrative Patient is a 79-year-old female who presents the ER for left-sided weakness. She was in her room and came out to Dr. Barillas to nursing station with facial droop slurred speech and weakness in her left upper extremity. She almost fell but was caught. She was brought in here. Stroke alert was called. We took her directly to CAT scan and performed a CTA of her head and neck along with personnel security assistant Noncon of her head. On my exam patient appears to be completely at baseline physically and per daughter mentally as well as she does have vascular dementia. IV was established blood work was obtained showed no significant leukocytosis or anemia. INR was unremarkable. BMP along with LFTs bilirubin troponin was unremarkable. UA was negative. CT of the head shows old lacunar infarcts and basal ganglia strokes. 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 Patient was evaluated by [place] neurology tele-stroke who recommended no TPA for which I agreed with as well. Recommended an inpatient work-up. Discussed with [facility] interventional neurology for the acute versus chronic dissection in combination with the aneurysms. They favor that this is likely chronic/both findings and recommend that patient can follow-up in 2 weeks with him as an outpatient that was per Dr. Woodruff. Patient was monitored closely. 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 Impression & Plan TIA (transient ischemic attack), Brain aneurysm, Carotid artery dissection Discharge Plan Visit Data *Final* Discharge Date/Time: 08/31/19 19:04 Chief Complaint: Stroke Alert Stated Complaint: STROKE ALERT ED Provider: Giovanni Womack Discharge Problem: TIA (transient ischemic attack), Brain aneurysm, Carotid artery dissection Patient Disposition: Admitted As Inpatient Discharge Instructions Interventions: ED Discharge Assessment Last Done: 08/31/19 19:04 The scribe's documentation has been prepared under my direction and personally reviewed by me in its entirety. I confirm that the note above accurately reflects all work, treatment, procedures, and medical decision making performed by me.
[2019-09-01] MEDS: LEVOTHYROXINE SODIUM 88 MCG TABLET PO SCH (05:38)
[2019-09-01 06:05] LABS: Estimated Average Glucose 114 mg/dl; Hemoglobin A1C 5.6 % (4.5-5.6)
[2019-09-01 07:20] LABS: Basophils # (auto) 0.01 K/uL (0-0.2); Basophils % (auto) 0.2 %; Eosinophils # (auto) 0.38 K/uL (0-0.5); Eosinophils % (auto) 5.8 %; Hematocrit (blood only) 39.4 % (37-47); Hemoglobin 12.5 g/dL (12.0-16.0); Immature Granulocytes # (auto) 0.01 K/uL (0.00-0.02); Immature Granulocytes % (auto) 0.2 %; Lymphocytes # (auto) 2.56 K/uL (1.2-3.4); Lymphocytes % (auto) 38.8 %; Mean Corpuscular Hemoglobin 31.7 pg (25-34); Mean Corpuscular Hgb Conc 31.7 g/dL (32-36); Mean Platelet Volume 9.1 fL (7.4-10.4); Monocytes # (auto) 0.61 K/uL (0.11-0.59); Monocytes % (auto) 9.3 %; Neutrophils # (auto) 3.02 K/uL (1.4-6.5); Neutrophils % (auto) 45.7 %; Platelet Count 202 K/uL (130-400); RDW Coefficient of Variation 14.2 % (11.5-14.5); RDW Standard Deviation 51.8 fL (36.4-46.3); Red Blood Count 3.94 M/uL (4.2-5.4); White Blood Count 6.59 K/uL (4.8-10.8)
[2019-09-01 07:48] LABS: BUN Creatinine Ratio 19.1 (10-20); Creatinine Clr Calc Pharmacy 42.4 ml/min; Est GFR (African American) 66.9; Est GFR (Non-African American) 57.7; Potassium 4.4 mmol/L (3.5-5.1)
[2019-09-01] MEDS: ASPIRIN 81 MG ECTAB PO SCH (08:26)
[2019-09-01] MEDS: ACETAMINOPHEN 325 MG TAB PO SCH ×3 (08:26→20:42)
[2019-09-01] MEDS: POTASSIUM CHLORIDE 20 MEQ TABCR PO SCH ×2 (08:27→20:42)
[2019-09-01] MEDS: CALCIUM 600MG + VIT D 400 IU TAB PO SCH (08:27)
[2019-09-01] MEDS: FUROSEMIDE 20 MG TAB PO SCH (08:27)
[2019-09-01] MEDS: MULTIVITAMIN TAB PO SCH (08:27)
[2019-09-01] MEDS: CLOPIDOGREL BISULFATE 75 MG TAB PO SCH (08:28)
[2019-09-01] MEDS: LISINOPRIL 5 MG TAB PO SCH (08:28)
[2019-09-01] MEDS: METOPROLOL TARTRATE 25 MG TAB PO SCH ×2 (08:28→20:41)
[2019-09-01] MEDS: PHENELZINE SULFATE PO SCH ×2 (08:29→20:42)
--- NOTE | 2019-09-01 10:55 | Neurology Consultation ---
Date of Consultation September 01, 2019 Assessment & Plan (1) TIA (transient ischemic attack): (2) Brain aneurysm: (3) Carotid artery dissection: (4) Vascular dementia: Patient had an episode August 31 consisting of transient left face, arm, and leg weakness with some slurred speech. It seems to have lasted approximately an hour so but was resolved by the time she got to the emergency room. Neurologic examination currently reveals no focal signs, meningeal signs, or encephalopathy. She does have short-term memory loss and has a presentation consistent with dementia likely from vascular origin. There is history that a previous MRI showed small vessel ischemic disease but I do not have this report. 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 She is a great risk for vascular events from the right internal carotid artery aneurysm. The the age of these aneurysms and dissection is not readily node but except for yesterday's event she has had no symptoms. Given her entire history and CTA findings, I suspect an underlying non inflammatory vascular wall problem. Recommendations: 1. Continue with 81 mg aspirin and 75 mg clopidogrel for now. 2. I would like an MRI of the brain without contrast but the patient is very cl austrophobic. We could order a stroke protocol MRI and start with diffusion imaging. This would tell us if there was an acute stroke or not. If she can't tolerate more we can get more sequencing. If not, then we would know whether there was an acute stroke or not. 3. This patient needs follow-up with vascular surgery and is scheduled to see Dr. Mago Woodruff, vascular neurosurgeon, at [facility] sometime in the next 2 weeks. 4. Increase activity as able. 5. Control blood pressure as you are doing a mean for a mean arterial pressure of 95-100. 6. Patient has normal lipid parameters and technically would not be a high dose lipid candidate. 7. There is no need to initiate medication for her vascular dementia at this time. I would be happy to see her as an outpatient however. Overall , I spent a total of 100 minutes with this case including review of records, review of CT angiography films, direct evaluation patient at bedside, and discussion of the case with the patient at bedside, her daughter was present at bedside, Dr. Kaur, and Dr. Guzmán radiology, including differential diagnosis and treatment options. History of Present Illness Reason for Consultation: 79-year-old, who I was asked to see at the request of Dr. Katz, for neurologic consultation regarding TIA and cerebral vascular issues. Requesting Physician: Dr. Katz Attending Physician: Clari Kaur MD History of Present Illness Patient has a longstanding history of hypertension and dyslipidemia. She was a cigarette smoker (1/2 pack per day) from her mid teen years up until 2 years ago. Her history suggests TIAs in the past but on further history (based on the patient and her daughter who is present at bedside) patient never had any events like yesterday. There were no episodes of weakness, numbness, or speech problems. In September of 2017 when she underwent cardiac stent procedures an MRI of the brain showed small vessel ischemic disease. They interpreted what the clinicians told them as that she had had TIAs. Patient has had a history of DVTs in the past. For the last 2 years since her cardiac surgery, she has had memory problems particularly short-term. She has been fairly stable with this. She was on Plavix since September of 2017 and has been on 81 mg aspirin tablet for years. Patient is a resident at [facility] and had a good day yesterday in the morning and early afternoon. She had eaten lunch. Sometime between 2 and 3 in the afternoon yesterday she did not feel well. She had some low back pain and they gave her some Tylenol. She denied headache, spine or chest pain, dizziness, neck issues, vision problems but around 3:00 p.m. nursing felt that her speech was slurred and her left side was weak. A left facial droop was noted as well. Patient does not remember this. She ride to the emergency room August 31 at 1613 with a temperature of 37.3, pulse 70, respiratory rate 17, blood pressure 175/62, and O2 saturation 96%. Although EMS felt that she had slurred speech and mild left upper extremity weakness exam by the emergency room physician revealed that she had no deficits and was back to baseline. CT scan of the head showed old small vessel ischemic disease, with small old lacunes in the left basal ganglia area. I reviewed these films. CT angiography of the head and neck revealed distal left internal carotid artery webs verses dissection at 2 different areas. In addition there was a 12 x 12 mm broad aneurysm distally in the right internal carotid artery. This did not have a distinct neck. Finally, the basilar tip was broad and showed aneurysmal dilatation of 3-4 mm. The proximal internal carotid artery showed some irregularity and stenosis up to 75% due to calcified plaque. There was a mild aneurysmal dilatation of the distal left ICA measuring 6 mm. I reviewed all of these CT angiography films with the radiologist Dr. Guzmán. The patient is resistant to getting an MRI of the brain. She is very claustrophobic. Today she feels back to baseline with no weakness or numbness. She has no speech problems. The daughter verifies this. Her mentation is at baseline. CBC and Chem profile were largely unremarkable. Hemoglobin A1c was 5.6 and triglycerides 145. Total cholesterol was 135. Urinalysis was unremarkable. Allergies Allergy/AdvReac Type Severity Reaction Status Date / Time bee venom protein (honey bee) Allergy Unknown Verified 08/31/19 17:25 codeine Allergy Unknown Verified 08/31/19 17:25 levofloxacin [From Levaquin] Allergy Unknown Verified 08/31/19 17:25 meperidine [From Demerol] Allergy Unknown Verified 08/31/19 17:25 morphine Allergy Unknown Verified 08/31/19 17:25 Home Medications Home Medications Medication Instructions Recorded Confirmed Type acetaminophen 650 mg 650 mg PO Q6 PRN tab 07/13/19 08/31/19 History tablet,extended release alendronate 70 mg tablet 70 mg PO WEEKLY tab 07/13/19 08/31/19 History aspirin 81 mg tablet,delayed 81 mg PO DAILY 07/13/19 08/31/19 History release atorvastatin 80 mg tablet 80 mg PO QPM 07/13/19 08/31/19 History clopidogrel 75 mg tablet 75 mg PO DAILY 07/13/19 08/31/19 History furosemide 20 mg tablet 20 mg PO QAM 07/13/19 08/31/19 History levothyroxine 88 mcg capsule 88 mcg PO DAILY 07/13/19 08/31/19 History lisinopril 5 mg tablet 5 mg PO DAILY 07/13/19 08/31/19 History melatonin 5 mg tablet 5 mg PO HS 07/13/19 08/31/19 History metoprolol tartrate 75 mg tablet 75 mg PO BID 07/13/19 08/31/19 History multivitamin 1 tab PO DAILY 07/13/19 08/31/19 History phenelzine 15 mg tablet 30 mg PO BID tab 07/13/19 08/31/19 History potassium chloride 20 mEq 20 meq PO BID 07/13/19 08/31/19 History tablet,extended release psyllium 1 pkt PO DAILY ea 07/13/19 08/31/19 History white petrolatum 1 applic TOPICAL UD PRN 07/13/19 08/31/19 History acetaminophen [Tylenol Arthritis 650 mg PO TID 08/31/19 08/31/19 History Pain] calcium carbonate-vitamin D3 1 tab PO DAILY 08/31/19 08/31/19 History [Calcium 600 + D(3)] ceramides 1,3,6-11 [CeraVe] 1 applic TOPICAL UD PRN 08/31/19 08/31/19 History gabapentin [Neurontin] 300 mg PO HS 08/31/19 08/31/19 History Patient History Medical History CAD (coronary artery disease) Chronic diastolic CHF (congestive heart failure) Coronary artery sclerosis Depression HLD (hyperlipidemia) HTN (hypertension) Hypothyroidism Ischemic heart disease Osteoporosis TIA (transient ischemic attack) Vascular dementia Surgical History H/O heart artery stent S/P appendectomy S/P hysterectomy Status post left knee replacement Family History Mother , age 64 from a motor vehicle accident. No problems noted. Father , age 87 Dementia Heart disease Osteoarthritis Social History Preferred Language: Faroese Communication Ability: Effective Coke Drawer Required: No Beliefs That Will Affect Care: None Current Living Situation: [facility] Current Living Situation Comment: evin suarez current occupational status: retired Other Information That Helps Us Care for You: No other: Retired age 70 working at [employer], in various jobs. Feels Safe at Home: Yes Safety Concerns: Feels Safe At This Time Smoking Status: Former smoker Tobacco Type: cigarettes ; packs per day: 0.5 ; Years Smoked: 62 ; Number of Years Since Quit: 2 ; Hx Alcohol Use: No Hx Substance Use: No Review of Systems Constitutional: no fever, no fatigue and no weakness Eyes: no diplopia, no eye pain and no worsening vision Ear, Nose, Mouth, Throat: no ear pain, no tinnitus, no hearing loss, no dizziness, no snoring, no hoarseness and no dysphagia Respiratory: no cough and no dyspnea Cardiovascular: no chest pain, no palpitations and no lightheadedness Gastrointestinal: no abdominal pain, no nausea and no vomiting Genitourinary: no dysuria, no urinary frequency and no urinary incontinence Musculoskeletal: + back pain; no neck pain, no radicular pain, no joint pain and no myalgia Integumentary: no rash and no lesions Neurologic: + gait abnormality and + memory loss; no localized weakness, no generalized weakness, no tingling, no numbness, no tremor(s), no abnormal movements, no headache(s), no abnormal speech and no confusion Psychiatric: no depression, no irritability, no anxiety, no difficulty concentrating, no confusion and no hallucinations Endocrine: no fatigue and no flushing Hematologic / Lymphatic: no easy bleeding and no easy bruising Allergy / Immunological: no urticaria and no problem reported Physical Exam Physical Exam: The patient is right-handed. The patient is awake, alert, and attentive. Speech is normal without any aphasia or dysarthria (at times I felt she had some slight dysarthria but the daughter was convinced that her speech was at baseline). She can name objects, repeat phrases, and has normal spontaneous speech. Mentation and thought processes are intact, with orientation to person, place and time, and normal fund of knowledge. She could name objects and new left from right but had trouble with calculations. Attention and concentration are normal. Mood and affect are normal and appropriate. General appearance and grooming are normal. Short term memory is impaired for details of her history. Long-term memory is intact. The discs are sharp with positive venous pulsations bilaterally. There are no exudates, hemorrhages, or blood vessel changes seen. Pupils are 3 mm bilaterally and reactive to light. Extraocular eye muscles are intact without nystagmus. Visual acuity and visual rodriguez seem normal grossly to confrontation. There are no deficits to sensation in the face in all 3 distributions of the fifth cranial nerve bilaterally. Corneal reflexes are positive bilaterally. Facial strength and symmetry was normal bilaterally. Hearing seems normal to whisper and finger rub bilaterally. Palate moves well without asymmetry. There is normal sternocleidomastoid and trapezius (shoulder shrug) strength bilaterally. Tongue is midline with good strength bilaterally. Neck has a full range of motion without discomfort. There are no cervical bruits bilaterally. There are no cranial or ocular bruits. Heart is without murmur. There is a regular rhythm and rate. Cervical, thoracic, and lumbar spine are nontender to palpation. Gait is narrow based, with good arm swing. She is slow and cautious with slow turns. With outstretched arms there is no drift. There are no resting, postural, or action tremors. There is no ataxia with finger to nose testing. There is good facility in the hands. No other abnormal involuntary movements are noted. Motor strength is 5/5 diffusely in the arms bilaterally including deltoids, biceps, triceps, brachioradialis, wrist flexors and extensors, solidworks mechanical designer, and intrinsic hand muscles. Motor strength is 5/5 diffusely in the legs bilaterally including hip flexors, quadriceps, hamstrings, gastrocnemius, tibialis anterior, tibialis posterior, and Peroneii muscles. Toe extensors are normal and there is good bulk in the extensor digitorum brevis muscles bilaterally. The limbs have good tone without rigidity or spasticity. There is no atrophy noted in the muscles. Muscle bulk is normal, there is no tenderness to palpation, no myotonia to percussion, and no fasciculations seen. Sensory examination is intact to touch and pin throughout all 4 limbs diffusely. Reflexes are 2/4 in the biceps, triceps, brachioradialis, and quadriceps tendons bilaterally. Achilles tendon reflexes are 1/4 bilaterally. There is no clonus bilaterally. Toes are downgoing with plantar stimulation bilaterally. Peripheral pulses are present and of normal quality distally in all 4 limbs. There is no peripheral edema noted in the limbs. Results & Data Vital Signs (Past 12 Hours) Vital Signs Temp Pulse Pulse Resp BP Pulse Ox 09/01/19 07:34 36.5 C 56 L 18 154/71 H 92 09/01/19 04:53 36.3 C L 94 H 18 110/61 92 09/01/19 00:00 54 L 08/31/19 23:41 36.3 C L 50 L 17 97/59 L 90 PG Care Time/CCT Total # of Minutes Spent Total Time Spent with Patient: Total time spent is greater than 50% in coordination of care (as documented) at patient's floor/unit and/or counseling patient:
--- NOTE | 2019-09-01 16:59 | Magnetic Resonance Report ---
Brain MRI WITHOUT CONTRAST HISTORY: Slurred speech. claustrophobic, aneurysm, possible stroke TECHNIQUE: Multiplanar multisequence MRI of the brain was performed without the use of contrast. COMPARISON STUDY: None. FINDINGS: There is no mass, hematoma, midline shift, or acute infarct. The paranasal sinuses are zach r. The mastoid air cells are clear. The ventricles and sulci demonstrate mild age-related involutiona l changes. Scattered foci of T2 hyperintensity seen within the periventricular and subcortical white matter are nonspecific but suggestive of moderate microvascular ischemic changes. The major vascular flow voids at the skull base are well-maintained. Redemonstration of the 12 mm aneurysm extending med ially from the cavernous segment of the right internal carotid artery. This is better appreciated on yesterday's head CTA. Old punctate lacunar infarcts within the periventricular white matter and trav. IMPRESSION: 1. No acute intracranial abnormality. 2. Patchy foci of T2 hyperintensity seen within the periventricular and subcortical white matter are nonspecific but favor moderate microvascular ischemic change.. 3. Redemonstration of the 12 mm saccular aneurysm at the cavernous segment of the right ICA. Electronically signed by: Jamal Murray M.D. 09/01/2019 4:58 PM
--- NOTE | 2019-09-01 17:18 | Hospitalist Progress Note ---
Date of Service September 01, 2019 Assessment & Plan (1) TIA (transient ischemic attack): Ms. Mantilla is a 79yo with a PMHx significant for diastolic CHF, HTN, HLD, CAD, vascular dementia who presented for stroke rule-out after having episodes of slurred speech and left arm weakness at her personal [facility]. Slurred speech sec to ?stroke/TIA -Pt with presenting slurred speech and left UE weakness resolved on admission -CT Head negative; CTA head and neck with noted 12x 12mm saccular aneurysm in right ICA and CT neck noting >75% occlusion of bilateral ICAs. -MRI ordered today-currently pending -pt currently asymptomatic; at baseline -will continue Plavix and aspirin, high intensity statin -appreciate neurology, speech and PT/OT recs -followup to be scheduled with Dr. Woodruff in [place] for noted aneurysm. Chronic problems: Hx of ischemic heart disease/CAD/CHF/HTN/HLD: continue home meds of aspirin, plavix, Lasix, metoprolol, lisinopril, atorvastatin Hx of hypothyroidism: continue home Levothyroxine Hx of vascular dementia: followup to be scheduled with Dr. Woodruff as above. FEN/GI: Heart Healthy diet DVT prophylaxis: On dual antiplatelet therapy CODE STATUS: DNR Dispo: Discharge to personal [facility] after overnight monitoring. Supervising Physician Co-Signing Physician Notes Resident Physician Supervision Note: I independently interviewed and examined the patient and verified the corea history and physical, reviewed labs and image studies, discussed the case with the resident Dr. Garcia and agree with the findings and care plan. Subjective Ms. Mantilla was seen this AM with daughter at bedside. States she currently is asymtomatic, denies any weakness or current slurred speech. Denies headache, changes to vision, trouble swallowing. Denies any cough, runny nose, sore throat, dizziness, chest pain, SOB, palpitations, abdominal pain, diarrhea or constipation, swelling in hands or feet or numbness or tingling anywhere. Review of Systems Review of Systems: All systems reviewed & are unremarkable except as noted in HPI & below Physical Exam Physical Exam: General: Alert, orientedx2. No acute distress Skin: No noted rashes or bruises Psych: Appropriate mood and affect Neuro: CNII-XII grossly intact; UE and LE strength 5/5. normal finger to nose, rapid alternating movements. HEENT: NC/AT Chest: Nontender to palpation. CV: RRR, Normal s1, s2. No murmurs appreciated Resp: Breath sounds clear bilaterally, no increased effort of breathing. No crackles/rhonchi/rales. Abdomen: Soft, nontender, nondistended. No guarding. No organomegaly appreciated. Extremities: No edema in lower extremities bilaterally. Results & Data Vital Signs (Past 12 Hours) Vital Signs Temp Pulse Pulse Resp BP Pulse Ox 09/01/19 15:26 37.0 C 60 17 95/50 L 92 09/01/19 11:16 36.6 C 47 L 18 95/58 L 94 09/01/19 08:00 51 L 09/01/19 07:34 36.5 C 56 L 18 154/71 H 92 Resident Activity Tracking Resident Involvement: Resident Care Provided Care Provided: Adult Hospital Medicine
[2019-09-01] MEDS: ATORVASTATIN 40 MG TAB PO SCH (20:41)
[2019-09-01] MEDS: GABAPENTIN 300 MG CAP PO SCH (20:41)
[2019-09-02] MEDS: LEVOTHYROXINE SODIUM 88 MCG TABLET PO SCH (05:38)
[2019-09-02 07:24] LABS: Basophils # (auto) 0.03 K/uL (0-0.2); Basophils % (auto) 0.4 %; Eosinophils # (auto) 0.51 K/uL (0-0.5); Eosinophils % (auto) 6.2 %; Hematocrit (blood only) 39.9 % (37-47); Immature Granulocytes # (auto) 0.02 K/uL (0.00-0.02); Immature Granulocytes % (auto) 0.2 %; Lymphocytes # (auto) 2.74 K/uL (1.2-3.4); Lymphocytes % (auto) 33.5 %; Mean Corpuscular Hemoglobin 32.1 pg (25-34); Mean Corpuscular Hgb Conc 32.6 g/dL (32-36); Mean Corpuscular Volume 98.5 fL (80-100); Mean Platelet Volume 9.1 fL (7.4-10.4); Monocytes # (auto) 0.89 K/uL (0.11-0.59); Monocytes % (auto) 10.9 %; Neutrophils # (auto) 3.98 K/uL (1.4-6.5); Neutrophils % (auto) 48.8 %; Platelet Count 228 K/uL (130-400); Red Blood Count 4.05 M/uL (4.2-5.4); White Blood Count 8.17 K/uL (4.8-10.8)
[2019-09-02 07:56] LABS: BUN Creatinine Ratio 22.8 (10-20); Calcium 9.6 mg/dl (8.5-10.1); Creatinine Clr Calc Pharmacy 41.1 ml/min; Est GFR (African American) 63.6; Est GFR (Non-African American) 54.9; Potassium 4.4 mmol/L (3.5-5.1)
[2019-09-02] MEDS: CALCIUM 600MG + VIT D 400 IU TAB PO SCH (08:50)
[2019-09-02] MEDS: MULTIVITAMIN TAB PO SCH (08:50)
[2019-09-02] MEDS: METOPROLOL TARTRATE 25 MG TAB PO SCH (08:50)
[2019-09-02] MEDS: POTASSIUM CHLORIDE 20 MEQ TABCR PO SCH (08:50)
[2019-09-02] MEDS: LISINOPRIL 5 MG TAB PO SCH (08:51)
[2019-09-02] MEDS: FUROSEMIDE 20 MG TAB PO SCH (08:51)
[2019-09-02] MEDS: CLOPIDOGREL BISULFATE 75 MG TAB PO SCH (08:51)
[2019-09-02] MEDS: ASPIRIN 81 MG ECTAB PO SCH (08:52)
[2019-09-02] MEDS: PHENELZINE SULFATE PO SCH (08:53)
[2019-09-02] MEDS: ACETAMINOPHEN 325 MG TAB PO SCH ×2 (08:54→14:08)
--- NOTE | 2019-09-02 09:15 | Neurology Progress Note ---
Date of Service September 02, 2019 Assessment & Plan (1) TIA (transient ischemic attack): (2) Brain aneurysm: (3) Carotid artery dissection: (4) Vascular dementia: Patient had an episode August 31 consisting of transient left face, arm, and leg weakness with some slurred speech. It seems to have lasted approximately an hour so, but was resolved by the time she got to the emergency room. Neurologic examination currently reveals no focal signs, meningeal signs, or encephalopathy. She does have short-term memory loss and has a presentation consistent with dementia likely from vascular origin. MRI of the brain showed no acute stroke. There was moderate old small vessel ischemic disease (chronic cerebral ischemia). 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 Additionally she has 75% stenosis of the proximal internal carotid arteries bilaterally. She is a great risk for vascular events from the right internal carotid artery aneurysm. The age of these aneurysms and dissection is not readily apparent but except for yesterday's event she has had no symptoms (therefore likely chronic/old). Given her entire history and CTA findings, I suspect an underlying non inflammatory vascular wall problem, such as (possibly) fibrom uscular dysplasia. Recommendations: 1. Continue with 81 mg aspirin and 75 mg clopidogrel for now. From a cerebral vascular standpoint, however, clopidogrel alone is typically recommended. 2. This patient needs follow-up with vascular surgery and should be scheduled to see Dr. Mago Woodruff, vascular neurosurgeon, at [facility], sometime in the next 2 weeks. 3. She could see a a general vascular surgeon for the bilateral proximal carotid stenoses, but I would always defer any possible surgical correction of peripheral vascular disease until the central disease (aneurysms/dissection) is addressed 4. Increase activity as able. 5. Control blood pressure as you are doing a mean for a mean arterial pressure of 95-100. 6. Patient has normal lipid parameters and technically would not be a high dose lipid candidate. 7. There is no need to initiate medication for her vascular dementia at this time. I would be happy to see her as an outpatient in 3-4 weeks, if desired. Overall , I spent a total of 35 minutes with this case including review of records, review of CT angiography films, direct evaluation patient at bedside, and discussion of the case with the patient at bedside, her daughter who was present at bedside, and Dr. Kaur, including differential diagnosis and treatment options. Subjective And is doing better and has no issues with pain or headache. Her daughter is present at bedside and the patient is a little more sedated compared to yesterday because of the Ativan used for the MRI of the brain. MRI of the brain showed no acute CVA. There was moderate old small vessel ischemia and mild to moderate generalized atrophy. I reviewed these films. Blood pressure is 149/72 Physical Exam Physical Exam: The patient is awake and alert, with normal speech (although she may be slightly slurred) and communication. Extraocular eye muscles are intact without nystagmus. There is no facial droop. Coordination is normal in the arms. Strength is symmetrical in the limbs. There are no tremors or abnormal involuntary movements. Results & Data Vital Signs (Past 12 Hours) Vital Signs Temp Pulse Pulse Resp BP Pulse Ox 09/02/19 07:45 54 L 09/02/19 07:34 36.4 C L 57 L 17 149/72 H 91 09/02/19 04:33 59 L 09/02/19 03:00 36.7 C 62 20 94/56 L 93 09/01/19 22:52 36.6 C 59 L 18 119/52 L 92 PG Care Time/CCT Total # of Minutes Spent Total Time Spent with Patient: Total time spent is greater than 50% in coordination of care (as documented) at patient's floor/unit and/or counseling patient:
--- NOTE | 2019-09-02 09:43 | Discharge Summary ---
Date of Service September 02, 2019 Admission HPI Per Admitting Provider This is a 79 yo F who resides in [facility] with PMHx of chronic diastolic CHF, HTN, CAD, history of syncope and collapse, HLD, ischemic heart disease, hypothyroidism, vascular dementia without behavioral disturbance, osteoporosis, history of UTI, who presents with acute strokelike symptoms. 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 It was also noted that she likely has vascular dementia. The patient is here with her daughter at bedside. She states that she woke up this morning and walked herself to breakfast, ate without any difficulty, then continued to go about her day but did not feel quite herself. She walked to the [facility] in [facility] to see one of the PAs on staff due to not feeling right. She noticed that she was having difficulty with walking and leaning towards the left side. She denies any slurred speech, blurry or double vision, or specific weakness. It was noted that she may have had a left upper extremity weakness earlier however this has completely resolved at this time. She denies any other acute complaints. Stroke protocol was initiated upon the patient's arrival to the ER. Dr. 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 Admission Exam Per Admitting Provider Constitutional: WD/WN, vitals as above Eyes: normal visual rodriguez by confrontation and + anicteric sclerae Neck: normal visual inspection and trachea midline Respiratory: normal respiratory effort, lungs clear to auscultation Cardiovascular: Rate/Rhythm: regular rate and regular rhythm Gastrointestinal (Abdomen): Inspection/Auscultation: abdomen not distended Percussion/Palpation: abdomen soft; abdomen nontender Musculoskeletal: Head/Neck/Chest: normocephalic and head atraumatic Neg for peripheral LE edema, + pedal pulses Skin: no rashes, warm and dry Neurologic: awake; not confused Speech / Cognition: normal speech Psychiatric: A+Ox3, euthymic affect Lymphatic: Exam as done by Giselle Katz DO Principal Diagnosis Transient Ischemic Attack Discharge Exam General: Alert, orientedx1. No acute distress, was awoken for exam. Skin: No noted rashes or bruises Psych: Appropriate mood and affect Neuro: CNII-XII grossly intact; UE and LE strength 5/5. normal finger to nose, rapid alternating movements. HEENT: NC/AT Chest: Nontender to palpation. CV: RRR, Normal s1, s2. No murmurs appreciated Resp: Breath sounds clear bilaterally, no increased effort of breathing. No crackles/rhonchi/rales. Abdomen: Soft, nontender, nondistended. No guarding. No organomegaly appreciated. Extremities: No edema in lower extremities bilaterally. Discharge Data Allergies Allergy/AdvReac Type Severity Reaction Status Date / Time bee venom protein (honey bee) Allergy Unknown Verified 08/31/19 17:25 codeine Allergy Unknown Verified 08/31/19 17:25 levofloxacin [From Levaquin] Allergy Unknown Verified 08/31/19 17:25 meperidine [From Demerol] Allergy Unknown Verified 08/31/19 17:25 morphine Allergy Unknown Verified 08/31/19 17:25 Consultations 08/31/19 17:45 ED Decision to Admit Stat 08/31/19 19:51 Consult Case Management - Discharge Planning Routine Consult Neurology Routine 09/02/19 07:00 Consult Case Management - Discharge Planning Routine Ordered Studies 08/31/19 16:11 CT head/brain wo con Stat 08/31/19 16:16 CT angio head w con Stat CT angio neck with con Stat 09/01/19 14:38 MR brain wo con Stat Hospital Course (1) TIA (transient ischemic attack): Ms. Mantilla is a 79yo with a PMHx significant for diastolic CHF, HTN, HLD, CAD and vascular dementia who presented for stroke rule-out after having episodes of slurred speech and left arm weakness at her personal residential. It was resolved by the time she was admitted. Admitted on Aug 31 and discharged on Sep 02, 2019. Slurred speech sec to TIA -Pt with presenting slurred speech and left UE weakness resolved on admission -CT Head negative; CTA head and neck with noted 12x 12mm saccular aneurysm in right ICA and CT neck noting >75% occlusion of bilateral ICAs. -MRI showed no acute ischemic changes; saccular aneurysm in right ICA once again noted. -Symptoms likely secondary to a TIA, as no evidence of stroke on imaging; resolution of presenting symptoms. -pt currently asymptomatic, at baseline on discharge. -Continue Plavix and aspirin after discharge -statin changed from Atorvastatin 80mg to 40mg on discharge due to increased risk of bleeding given pt's current LDL is 58, and she has the noted carotid aneurysm. -appreciate neurology recs- Dr. Salazar would like to followup with patient about 2 weeks after discharge. -followup scheduled with Dr. Naresh Woodruff, vascular neurosurgeon in [place] for noted aneurysm on Sep 13, 2019. Ischemic heart disease/CAD/CHF/HTN/HLD: continue home meds of aspirin, plavix, Lasix, metoprolol, lisinopril, atorvastatin Hypothyroidism: continue home Levothyroxine Vascular dementia: followup to be scheduled with Dr. Woodruff as above. Total Time Total Time Spent Total Time Spent (In Minutes): see attending attestation Discharge Plan Discharge Items Patient Disposition: Personal Detention Reason For Visit: STROKE Discharge Diagnosis: TIA Activity: Per Instructions section Non-emergency contact: Primary Care Provider Call non-emergency contact if: your symptoms worsen and you have a fever Follow-up/Referrals: Eran Pat [place] [Primary Care Provider] - Diet: Heart Healthy Addtl Attending Provider Instructions: Ms. Mantilla, you were admitted to rule out an acute stroke after you displayed symptoms of slurred speech and some left extremity weakness. We determined that you did NOT have another stroke, but possibly another TIA. Your symptoms have resolved and you appear to be back at baseline. We recommend that you continue taking your home medications, including your aspirin and Plavix. We also advise decreasing your home atorvastatin from 80mg to 40mg as the higher dose can increase your risk of bleeding. We would like to minimize that given your aneurysm noted. We also advise followup with Dr. Naresh Woodruff in [place] for the aneurysm noted on your head imaging. see below We also advise continued followup after discharge with neurology (Dr. Salazar in two weeks) and your primary care doctor. It was a pleasure taking care of you during your stay here! [facility] Navigator: An appointment was scheduled for you with Dr. Woodruff in [place] for Sep.13 at 3:00pm. Address: [address] [place] [address], [facility], [address], [place], [place] A copy of images have been made into a CD for you and this MUST be taken to the appointment or they will most likely have to reschedule your appointment. They also need your insurance card, photo ID and list of medications with current dosages. Pending Studies at Discharge: No Stand-Alone Forms: [facility], Smoking Cessation Skilled Items Patient informed of condition?: Yes DNR: Yes Discharge Level of Care: Other Communicable Disease: No Discharge Prognosis: Stable Lines: None Urinary Catheter: No Medications and DC Order Prescriptions: New atorvastatin 40 mg tablet 40 mg PO DAILY Qty: 30 RF: 0 Continued acetaminophen 650 mg tablet extended release 650 mg PO Q6 PRN (Reason: Pain) RF: 0 alendronate 70 mg tablet 70 mg PO WEEKLY RF: 0 aspirin 81 mg tablet,delayed release (DR/EC) 81 mg PO DAILY RF: 0 clopidogrel 75 mg tablet 75 mg PO DAILY RF: 0 multivitamin [Daily-Karla] tablet 1 tab PO DAILY RF: 0 furosemide 20 mg tablet 20 mg PO QAM RF: 0 levothyroxine 88 mcg capsule 88 mcg PO DAILY RF: 0 lisinopril 5 mg tablet 5 mg PO DAILY RF: 0 melatonin 5 mg tablet 5 mg PO HS RF: 0 psyllium packet 1 pkt PO DAILY RF: 0 metoprolol tartrate 75 mg tablet 75 mg PO BID RF: 0 phenelzine 15 mg tablet 30 mg PO BID RF: 0 potassium chloride 20 mEq tablet extended release 20 meq PO BID RF: 0 white petrolatum [Vaseline] gel 1 applic topical UD PRN (Reason: itching) RF: 0 gabapentin [Neurontin] 300 mg capsule 300 mg PO HS RF: 0 CeraVe Cream 1 applic TOPICAL UD PRN (Reason: ITCHY AREA) RF: 0 calcium carbonate-vitamin D3 [Calcium 600 + D(3)] 600 mg(1,500mg) -400 unit Tablet 1 tab PO DAILY RF: 0 acetaminophen [Tylenol Arthritis Pain] 650 mg Tablet Extended Release 650 mg PO TID RF: 0 Discontinued atorvastatin 80 mg tablet 80 mg PO QPM RF: 0 Discharge Orders: Discharge Order (Routine); Ordered 09/02/19 Ordered By: Ximena Garcia Admission Data Admit Date/Time: 08/31/19 18:14 Attending Provider: Clari aKur Admit Provider: Giselle Katz Primary Care Provider: Eran Pat [place] Other Providers: Giselle Katz Emile Pierre III Other Interventions: Discharge Summary Assessment (RN) Last Done: 09/02/19 12:53 DC Date/Time DO NOT enter until pt leaves facility: 09/02/19 14:46 Supervising Physician Co-Signing Physician Notes Resident Physician Supervision Note: I independently interviewed and examined the patient and verified the corea history and physical, reviewed labs and image studies, discussed the case with the resident Dr. Garcia and agree with the findings and care plan. Resident Activity Tracking Resident Involvement: Resident Care Provided Care Provided: Adult Hospital Medicine
[2019-09-02] MEDS ORDERED: STROKE PATIENT DISCHARGE ONE (09:47)
[2019-09-06] MEDS ORDERED: ALENDRONATE SODIUM 70 MG TAB PO SCH (06:30)
== END 2019-09-02 14:46 | disposition home or self-care (01) | DRG 69 ==
LOC: ED 16:06 → 2W 18:14 → SUATTDRO 18:14 → 2W 19:04

== ENCOUNTER 2020-07-22 19:42 | Observation (INO) ==
[2020-07-22] MEDS ORDERED: XYLOCAINE 1%/SOD BICARB 20 ML VIAL INFIL ONE (19:55)
[2020-07-22] MEDS ORDERED: CHOLESTYRAMINE LIGHT 4 GM PKT PO STA (19:55)
--- NOTE | 2020-07-22 19:58 | Emergency Department Note ---
History of Present Illness General Chief complaint: Fall Stated complaint: FALL, LACERATION TO BACK OF HEAD Time Seen by Provider: 07/22/20 19:49 Source: patient, family (daughter ), EMS, RN notes reviewed and old records [facility] [facility] Mode of arrival: EMS Limitations: physical limitation History of Present Illness Provider complaint: Severe diarrhea, head injury Onset (ago): day(s) 1 Location: head Radiation: non-radiation Current Pain Intensity: 0 Quality: + aching Relieved By: + immobilization Exacerbated By: + movement Associated symptoms: + weakness and + other (diarrhea) Treatments prior to arrival: none -This is an 80-year-old female who is a reported history of diarrhea for 1 day. The patient was on the toilet stood up and fell over hitting her head. She has a laceration to the back of her head. Upon arrival to the medical emergency department the patient is requesting to immediately go back to the bathroom. She had another large bowel movement. She does not know where she is and cannot answer any questions about her medications or what she ate today. The majority of the history is provided by the patient's daughter. The patient is complaining to the laceration of the back of the head which she describes as a burning sensation. Home Medications Home Medications Medication Instructions Recorded Confirmed Type acetaminophen 650 mg 650 mg PO Q6 PRN tab 07/13/19 07/22/20 History tablet,extended release alendronate 70 mg tablet 70 mg PO WEEKLY tab 07/13/19 07/22/20 History aspirin 81 mg tablet,delayed 81 mg PO DAILY 07/13/19 07/22/20 History release clopidogrel 75 mg tablet 75 mg PO DAILY 07/13/19 07/22/20 History furosemide 20 mg tablet 20 mg PO QAM 07/13/19 07/22/20 History levothyroxine 88 mcg capsule 88 mcg PO DAILY 07/13/19 07/22/20 History lisinopril 5 mg tablet 5 mg PO DAILY 07/13/19 07/22/20 History melatonin 5 mg tablet 5 mg PO HS 07/13/19 07/22/20 History metoprolol tartrate 75 mg tablet 75 mg PO BID 07/13/19 07/22/20 History multivitamin 1 tab PO DAILY 07/13/19 07/22/20 History phenelzine 15 mg tablet 30 mg PO BID tab 07/13/19 07/22/20 History potassium chloride 20 mEq 20 meq PO BID 07/13/19 07/22/20 History tablet,extended release CeraVe 1 applic TOPICAL UD PRN 08/31/19 07/22/20 History acetaminophen [Tylenol Arthritis 650 mg PO TID 08/31/19 07/22/20 History Pain] calcium carbonate-vitamin D3 1 tab PO DAILY 08/31/19 07/22/20 History [Calcium 600 + D(3)] gabapentin [Neurontin] 300 mg PO HS 08/31/19 07/22/20 History atorvastatin 40 mg PO DAILY #30 tab 09/02/19 07/22/20 Rx hydrocortisone 1 % topical cream 1 appln TOP Q12H PRN 12/07/19 07/22/20 History loperamide 1 mg/7.5 mL oral liquid 1 mg PO Q6H PRN 12/07/19 07/22/20 History camphor-menthol [Biofreeze] 1 applic TOPICAL Q4 PRN 07/22/20 07/22/20 History hexylresorcinol [Sucrets] 1 selena PO .Q2HRS PRN 07/22/20 07/22/20 History phenelzine 15 mg PO .QAFTERNOON 07/22/20 07/22/20 History phenyleph-shark hij-bqwf-nji 1 applic MO BID PRN 07/22/20 07/22/20 History [Preparation H] psyllium husk [Metamucil] 0.4 g PO QAM 07/22/20 07/22/20 History Allergies Allergy/AdvReac Type Severity Reaction Status Date / Time bee venom protein (honey bee) Allergy Unknown Verified 07/22/20 22:25 codeine Allergy Unknown Verified 07/22/20 22:25 levofloxacin [From Levaquin] Allergy Unknown Verified 07/22/20 22:25 meperidine [From Demerol] Allergy Unknown Verified 07/22/20 22:25 morphine Allergy Unknown Verified 07/22/20 22:25 Past Med/Surg History Medical History CAD (coronary artery disease) Chronic diastolic CHF (congestive heart failure) Coronary artery sclerosis Depression HLD (hyperlipidemia) HTN (hypertension) Hypothyroidism Ischemic heart disease Osteoporosis TIA (transient ischemic attack) Vascular dementia Surgical History H/O heart artery stent S/P appendectomy S/P hysterectomy Status post left knee replacement Family History Mother , age 64 from a motor vehicle accident. No problems noted. Father , age 87 Dementia Heart disease Osteoarthritis Social History Smoking Status: Former smoker packs per day: 0.5; Number of Years Since Quit: 2; Hx Alcohol Use: No Hx Substance Use: No Preferred Language: Togolese Communication Ability: Effective Silk Screen Printer Required: No Beliefs That Will Affect Care: None marital status: / Current Living Situation: [facility] Current Living Situation Comment: [facility] current occupational status: retired How many Children do You have: 2 other: Retired age 70 working at [employer], in various jobs. Feels Safe at Home: Yes Assistive Devices: Walker Review of Systems A total of 10 systems reviewed and were otherwise negative Physical Exam Vital Signs Vital Signs - 24 hr 07/22/20 20:14 07/22/20 20:31 07/22/20 20:40 Temperature 36.9 C Temperature Source Oral Pulse Rate 65 Pulse Rate [Finger] 57 L Pulse Rate from SpO2 Sensor Respiratory Rate 18 20 Blood Pressure 105/45 L Blood Pressure [Right Arm] 84/39 L Blood Pressure Mean 65 Blood Pressure Mean [Right Arm] 54 Pulse Oximetry 97 97 97 Oxygen Delivery Method Room Air Room Air Room Air Sepsis Recent Fever Within 48 Hours No Sepsis New/Unexplained Change in Mental Status No Sepsis Action Taken by Nursing No Action Required 07/22/20 20:45 07/22/20 21:05 07/22/20 21:07 Temperature Temperature Source Pulse Rate 64 65 Pulse Rate [Finger] 62 Pulse Rate from SpO2 Sensor 66 68 Respiratory Rate 20 16 21 Blood Pressure 98/37 L Blood Pressure [Right Arm] 95/60 L Blood Pressure Mean 59 Blood Pressure Mean [Right Arm] 71 Pulse Oximetry 97 94 95 Oxygen Delivery Method Sepsis Recent Fever Within 48 Hours Sepsis New/Unexplained Change in Mental Status Sepsis Action Taken by Nursing 07/22/20 21:08 07/22/20 21:51 07/22/20 21:52 Temperature Temperature Source Pulse Rate 65 62 61 Pulse Rate [Finger] Pulse Rate from SpO2 Sensor 63 60 62 Respiratory Rate 20 17 16 Blood Pressure 139/66 Blood Pressure [Right Arm] Blood Pressure Mean 71 Blood Pressure Mean [Right Arm] Pulse Oximetry 95 94 Oxygen Delivery Method Sepsis Recent Fever Within 48 Hours Sepsis New/Unexplained Change in Mental Status Sepsis Action Taken by Nursing 07/22/20 21:53 07/22/20 22:00 07/22/20 22:01 Temperature Temperature Source Pulse Rate 61 61 61 Pulse Rate [Finger] Pulse Rate from SpO2 Sensor 62 61 61 Respiratory Rate 17 17 14 Blood Pressure 125/58 L Blood Pressure [Right Arm] Blood Pressure Mean 78 Blood Pressure Mean [Right Arm] Pulse Oximetry 94 94 94 Oxygen Delivery Method Sepsis Recent Fever Within 48 Hours Sepsis New/Unexplained Change in Mental Status Sepsis Action Taken by Nursing 07/22/20 22:30 07/22/20 22:31 07/22/20 23:00 Temperature Temperature Source Pulse Rate 62 63 61 Pulse Rate [Finger] Pulse Rate from SpO2 Sensor 62 61 60 Respiratory Rate 16 15 14 Blood Pressure 127/56 L 106/55 L Blood Pressure [Right Arm] Blood Pressure Mean 71 71 Blood Pressure Mean [Right Arm] Pulse Oximetry 93 92 93 Oxygen Delivery Method Sepsis Recent Fever Within 48 Hours Sepsis New/Unexplained Change in Mental Status Sepsis Action Taken by Nursing 07/22/20 23:01 07/22/20 23:30 07/22/20 23:31 Temperature Temperature Source Pulse Rate 62 65 65 Pulse Rate [Finger] Pulse Rate from SpO2 Sensor 61 65 65 Respiratory Rate 14 19 18 Blood Pressure 137/52 L Blood Pressure [Right Arm] Blood Pressure Mean 96 Blood Pressure Mean [Right Arm] Pulse Oximetry 93 93 94 Oxygen Delivery Method Sepsis Recent Fever Within 48 Hours Sepsis New/Unexplained Change in Mental Status Sepsis Action Taken by Nursing VITAL SIGNS - Vital signs and nursing notes were reviewed. GENERAL - 80-year-old female appearing stated age who is in no acute distress. Communicates well with provider and answers questions appropriately. SKIN - laceration 2.6 cm to back of head HEAD - NC/AT. EYES - PERRL with EOMI bilaterally. Sclera anicteric. Palpebral conjunctiva pink and moist with no injection noted. EARS - No deformities of external structures noted on gross examination bilaterally. No pain elicited with palpation of the tragus bilaterally. External auditory canals without discharge or otorrhea. Tympanic membranes pearly sauceda without retraction or bulging. No fluid or purulent material visualized behind the TM. Handle of malleus, umbo, cone of light, pars tensa/flaccid all easily visualized. NOSE - Midline and without cyanosis. No epistaxis or purulent drainage noted. Septum midline without deviation or septal hematoma noted. MOUTH/OROPHARYNX - Without perioral cyanosis. Buccal mucosa pink and moist and without leukoplakia. Tongue midline with equal elevation of palate bilaterally. No tonsillar hypertrophy, erythema, or exudates noted. dentition noted. NECK - Neck with FROM. Supple to palpation. lymphadenopathy noted. No nuchal rigidity. LUNGS - Chest wall symmetric without accessory muscle use, intercostals retractions, or central cyanosis. Normal vesicular breath sounds CTA B/L. No wheezes, rales, or rhonchi appreciated. CARDIAC - RRR with S1/S2. No murmur, rubs, or gallops appreciated. ABDOMEN - Abdominal contour without pulsations or visible masses. BS normo active all four quadrants. No tenderness, palpable masses, hepatosplenomegaly, or ascites noted. EXTREMITIES - No clubbing or peripheral cyanosis. No pretibial edema present. +3/5 radial, posterior tibial, and dorsalis pedis pulses palpated throughout. +5/5 strength noted in UE/LE bilaterally. NEUROLOGIC - Cranial nerves II through XII grossly intact. Sensory intact to light touch throughout. Patellar reflexes +2/4. PSYCH - Pt unsure of where she is, cannot answer questions about her day or m edications Pt is very pleasant and interacts well with examiner. Procedures Laceration Laceration 1: Site: scalp Side (If applicable): left Size (cm): 2.6 Description: linear Depth: simple, single layer Local Anesthetic: lidocaine 1% Amount of anesthesia used (mL): 6 Pre-repair: wound explored, irrigated extensively and deep structures intact Skin layer closed with: other (10 francesca) Course Administered Medications Discontinued Medications Cholestyramine Resin (Cholestyramine Light 4 Gm Pkt) 4 gm PO NOW STA Stop: 07/22/20 19:56 Last Admin: 07/22/20 21:08 Dose: 4 gm Documented by: [id number] Dextrose (Dextrose 50% 50 Ml Syringe) 50 ml IV NOW ONE Stop: 07/22/20 22:35 Last Admin: 07/22/20 23:23 Dose: 50 ml Documented by: [id number] Sodium Chloride (Nss 1000ml) 1,000 mls @ 999 mls/hr IV .Q1H1M CHARLEEN Stop: 07/22/20 21:45 Last Infusion: 07/22/20 23:37 Dose: 0 mls/hr Documented by: [id number] Admin: 07/22/20 21:54 Dose: 999 mls/hr Documented by: [id number] Sodium Chloride (Nss 1000ml) 1,000 mls @ 999 mls/hr IV .Q1H1M ONE Stop: 07/22/20 21:45 Last Infusion: 07/22/20 21:54 Dose: 0 mls/hr Documented by: [id number] Admin: 07/22/20 20:40 Dose: 999 mls/hr Documented by: [id number] Insulin Human Regular 10 units (/ Syringe) 10 mls @ 0 mls/hr IV NOW ONE Stop: 07/22/20 22:46 Last Admin: 07/22/20 23:34 Dose: 10 mls/hr Documented by: [id number] Cosigned by: [id number] Lidocaine HCl (Xylocaine 1%/Sod Bicarb 20 Ml Vial) 20 ml INFIL NOW ONE Stop: 07/22/20 19:56 Last Admin: 07/22/20 21:11 Dose: 20 ml Documented by: [id number] Medical Decision Making Differential Diagnosis Infection, dehydration, metabolic abnormality, hypo/hyperglycemia, electrolyte disturbance, anemia, hypoxia, cardiac sources, intracerebral event, toxicologic, neurologic, as well as other pathologies. Medical Records Attestation: I reviewed the patient's medical records. Home Medications Current Medication List: was personally reviewed by me Laboratory Data Attestation: I reviewed the patient's lab results. Result diagrams: 07/22/20 20:40 07/22/20 20:40 Lab Results 07/22/20 07/22/20 07/22/20 Range/Units 20:12 20:40 20:40 WBC 10.64 (4.8-10.8) K/uL RBC 3.62 L (4.2-5.4) M/uL Hgb 11.8 L (12.0-16.0) g/dL Hct 37.2 (37-47) % MCV 102.8 H (80-100) fL MCH 32.6 (25-34) pg MCHC 31.7 L (32-36) g/dL RDW Std Deviation 52.8 H (36.4-46.3) fL RDW Coeff of Abby 14.0 (11.5-14.5) % Plt Count 243 (130-400) K/uL MPV 9.3 (7.4-10.4) fL Immature Gran % (Auto) 0.1 % Neut % (Auto) 58.0 % Lymph % (Auto) 27.9 % Medina % (Auto) 9.0 % Eos % (Auto) 4.8 % Baso % (Auto) 0.2 % Neut # (Auto) 6.17 (1.4-6.5) K/uL Lymph # (Auto) 2.97 (1.2-3.4) K/uL Medina # (Auto) 0.96 H (0.11-0.59) K/uL Eos # (Auto) 0.51 H (0-0.5) K/uL Baso # (Auto) 0.02 (0-0.2) K/uL Immature Gran # (Auto) 0.01 (0.00-0.02) K/uL Sodium 139 (136-145) mmol/L Potassium 5.5 H (3.5-5.1) mmol/L Chloride 109 H (98-107) mmol/L Carbon Dioxide 25 (21-32) mmol/L Anion Gap 5.0 (3-11) BUN 27 H (7-18) mg/dl Creatinine 1.53 H (0.6-1.2) mg/dl Est Cr Clr Drug Dosing 26.7 ml/min Est GFR ( Amer) 36.8 Est GFR (Non-Af Amer) 31.8 BUN/Creatinine Ratio 17.5 (10-20) Glucose 143 H (70-99) mg/dl Calcium 9.1 (8.5-10.1) mg/dl Total Bilirubin 0.4 (0.2-1) mg/dl AST 32 (15-37) U/L ALT 15 (12-78) U/L Alkaline Phosphatase 123 H (45-117) U/L Total Creatine Kinase 74 (26-192) U/L CK-MB (CK-2) 1.9 (0.5-3.6) ng/ml CK/CKMB % Calc 2.6 (0-3.0) Troponin I < 0.015 (0-0.045) ng/ml Total Protein 7.2 (6.4-8.2) gm/dl Albumin 3.4 (3.4-5.0) gm/dl Globulin 3.8 (2.5-4.0) gm/dl Albumin/Globulin Ratio 0.9 (0.9-2) TSH 2.300 (0.300-4.500) uIu/ml Stl C. diff Tox B Gene Negative Cdiff Gene (Neg) COVID-19 Eval Order 07/22/20 Range/Units 22:00 WBC (4.8-10.8) K/uL RBC (4.2-5.4) M/uL Hgb (12.0-16.0) g/dL Hct (37-47) % MCV (80-100) fL MCH (25-34) pg MCHC (32-36) g/dL RDW Std Deviation (36.4-46.3) fL RDW Coeff of Abby (11.5-14.5) % Plt Count (130-400) K/uL MPV (7.4-10.4) fL Immature Gran % (Auto) % Neut % (Auto) % Lymph % (Auto) % Medina % (Auto) % Eos % (Auto) % Baso % (Auto) % Neut # (Auto) (1.4-6.5) K/uL Lymph # (Auto) (1.2-3.4) K/uL Medina # (Auto) (0.11-0.59) K/uL Eos # (Auto) (0-0.5) K/uL Baso # (Auto) (0-0.2) K/uL Immature Gran # (Auto) (0.00-0.02) K/uL Sodium (136-145) mmol/L Potassium (3.5-5.1) mmol/L Chloride (98-107) mmol/L Carbon Dioxide (21-32) mmol/L Anion Gap (3-11) BUN (7-18) mg/dl Creatinine (0.6-1.2) mg/dl Est Cr Clr Drug Dosing ml/min Est GFR ( Amer) Est GFR (Non-Af Amer) BUN/Creatinine Ratio (10-20) Glucose (70-99) mg/dl Calcium (8.5-10.1) mg/dl Total Bilirubin (0.2-1) mg/dl AST (15-37) U/L ALT (12-78) U/L Alkaline Phosphatase (45-117) U/L Total Creatine Kinase (26-192) U/L CK-MB (CK-2) (0.5-3.6) ng/ml CK/CKMB % Calc (0-3.0) Troponin I (0-0.045) ng/ml Total Protein (6.4-8.2) gm/dl Albumin (3.4-5.0) gm/dl Globulin (2.5-4.0) gm/dl Albumin/Globulin Ratio (0.9-2) TSH (0.300-4.500) uIu/ml Stl C. diff Tox B Gene (Neg) COVID-19 Eval Order Covid19 Done at [facility] Imaging Data Attestation: I personally reviewed and interpreted this imaging study as follows: My Impression: A one view of the chest was interpreted by me shows no evidence of pneumonia congestion or pneumothorax. Radiologist's Impression: CT of the head: Comparison to August 31, 2019 There is a left posterior parietal scalp hematoma and laceration. No skull fracture is seen. The paranasal sinuses and mastoid air cells are within normal limits. There is patchy periventricular and deep white matter low-density throughout the cerebral consistent with chronic small vessel disease and old lacunar infarcts. There is no mass lesion or midline shift. No evidence of acute large vessel infarct or intracranial hemorrhage. ECG Data Attestation: I personally reviewed and interpreted this ECG as follows: Indication: + altered mental status Rate (beats per minute): 60 Rhythm: + normal sinus ECG Intervals/blocks: + Normal QT-c (468) ECG Whitman: + Normal ECG ST segments: no ST depression and no ST elevation ECG Findings: + PACs Comparison ECG Date: from (08/31/2019) Change: the following changes noted (PACs are now noted) MDM Narrative Patient was seen and evaluated as above in room B2. Review was performed of nursing notes and vital signs. I did review pertinent previous visits and patient history. After obtaining a thorough history and physical examination the above work up was performed. This is an 80-year-old female who presents the emergency department hypotensive with severe diarrhea. The patient appears to be acutely dehydrated. She was given a normal saline bolus. Patient had several accidents while she was in the emergency department. She was started on cholestyramine and was able to provide a stool sample. The laceration was repaired as above. Because of the severe diarrhea as well as the hypotension I do feel the patient should be admitted to the hospital. I did discuss the case with the hospitalist service who did agree to admit the patient. An order was placed for continuous cardiac monitoring. The monitor shows a rate of 80 with Normal Sinus rhythm. The patient was evaluated during the global COVID-19 pandemic, and that diagnosis was suspected/considered upon their initial presentation. Their evaluation, treatment and testing was consistent with current guidelines for patients who present with complaints or symptoms that may be related to COVID- 19. Impression & Plan Acute hypotension, Diarrhea, Acute dehydration, Fall, Head injury Discharge Plan Visit Data Chief Complaint: Fall Stated Complaint: FALL, LACERATION TO BACK OF HEAD ED Provider: Chidi [facility] Discharge Problem: Acute hypotension, Diarrhea, Acute dehydration, Fall, Head injury Discharge Instructions Activity Restrictions/Additional Instructions: Francesca out in 7-10 days Forms Stand Alone Forms: [facility] [employer] Prescriptions Prescriptions: No Action acetaminophen 650 mg tablet extended release 650 mg PO Q6 PRN (Reason: Pain) RF: 0 alendronate 70 mg tablet 70 mg PO WEEKLY RF: 0 aspirin 81 mg tablet,delayed release (DR/EC) 81 mg PO DAILY RF: 0 clopidogrel 75 mg tablet 75 mg PO DAILY RF: 0 multivitamin [Daily-Karla] tablet 1 tab PO DAILY RF: 0 furosemide 20 mg tablet 20 mg PO QAM RF: 0 levothyroxine 88 mcg capsule 88 mcg PO DAILY RF: 0 lisinopril 5 mg tablet 5 mg PO DAILY RF: 0 melatonin 5 mg tablet 5 mg PO HS RF: 0 metoprolol tartrate 75 mg tablet 75 mg PO BID RF: 0 phenelzine 15 mg tablet 30 mg PO BID RF: 0 potassium chloride 20 mEq tablet extended release 20 meq PO BID RF: 0 loperamide 1 mg/7.5 mL liquid 1 mg PO Q6H PRN (Reason: diarrhea) RF: 0 hydrocortisone [Preparation H Hydrocortisone] 1 % cream 1 appln TOP Q12H PRN (Reason: hemorrhoids) RF: 0 gabapentin [Neurontin] 300 mg capsule 300 mg PO HS RF: 0 CeraVe Cream 1 applic TOPICAL UD PRN (Reason: ITCHY AREA) RF: 0 calcium carbonate-vitamin D3 [Calcium 600 + D(3)] 600 mg(1,500mg) -400 unit Tablet 1 tab PO DAILY RF: 0 acetaminophen [Tylenol Arthritis Pain] 650 mg Tablet Extended Release 650 mg PO TID RF: 0 atorvastatin 40 mg tablet 40 mg PO DAILY Qty: 30 RF: 0 Biofreeze 0.2-3.5 % Gel 1 applic TOPICAL Q4 PRN (Reason: Back Pain) RF: 0 phenelzine 15 mg tablet 15 mg PO .QAFTERNOON RF: 0 Sucrets Lozenge 1 selena PO .Q2HRS PRN (Reason: Sore Throat) RF: 0 Preparation H Cream 1 applic MO BID PRN (Reason: Hemorrhoids) RF: 0 psyllium husk [Metamucil] 0.4 gram Capsule 0.4 g PO QAM RF: 0 Referrals Referrals: Eran Pat [place] [Primary Care Provider] - Discharge Problem: Diarrhea Qualifiers: Diarrhea type: unspecified type Qualified Code(s): R19.7 - Diarrhea, unspecified Fall Qualifiers: Encounter type: initial encounter Qualified Code(s): W19.XXXA - Unspecified fall, initial encounter Head injury Qualifiers: Encounter type: initial encounter Qualified Code(s): S09.90XA - Unspecified injury of head, initial encounter
[2020-07-22] MEDS ORDERED: SODIUM CHLORIDE 0.9% 1000ML 1,000 ML IV ONE (20:45)
[2020-07-22] MEDS ORDERED: SODIUM CHLORIDE 0.9% 1000ML 1,000 ML IV SCH (20:45)
[2020-07-22 20:50] LABS: Basophils # (auto) 0.02 K/uL (0-0.2); Basophils % (auto) 0.2 %; Eosinophils # (auto) 0.51 K/uL (0-0.5); Eosinophils % (auto) 4.8 %; Hematocrit (blood only) 37.2 % (37-47); Hemoglobin 11.8 g/dL (12.0-16.0); Immature Granulocytes # (auto) 0.01 K/uL (0.00-0.02); Immature Granulocytes % (auto) 0.1 %; Lymphocytes # (auto) 2.97 K/uL (1.2-3.4); Lymphocytes % (auto) 27.9 %; Mean Corpuscular Hemoglobin 32.6 pg (25-34); Mean Corpuscular Hgb Conc 31.7 g/dL (32-36); Mean Corpuscular Volume 102.8 fL (80-100); Mean Platelet Volume 9.3 fL (7.4-10.4); Monocytes # (auto) 0.96 K/uL (0.11-0.59); Neutrophils # (auto) 6.17 K/uL (1.4-6.5); Platelet Count 243 K/uL (130-400); RDW Standard Deviation 52.8 fL (36.4-46.3); Red Blood Count 3.62 M/uL (4.2-5.4); White Blood Count 10.64 K/uL (4.8-10.8)
[2020-07-22 21:10] LABS: Alanine Aminotransferase 15 U/L (12-78); Albumin Level 3.4 gm/dl (3.4-5.0); Aspartate Aminotransferase 32 U/L (15-37); BUN Creatinine Ratio 17.5 (10-20); Blood Urea Nitrogen 27 mg/dl (7-18); Calcium 9.1 mg/dl (8.5-10.1); Carbon Dioxide 25 mmol/L (21-32); Chloride 109 mmol/L (98-107); Creatinine Clr Calc Pharmacy 26.7 ml/min; Est GFR (African American) 36.8; Est GFR (Non-African American) 31.8; Glucose 143 mg/dl (70-99); Potassium 5.5 mmol/L (3.5-5.1); Sodium 139 mmol/L (136-145)
[2020-07-22 21:21] LABS: Albumin Globulin Ratio 0.9 (0.9-2); Alkaline Phosphatase 123 U/L (45-117); Bilirubin,Total 0.4 mg/dl (0.2-1); Creatine Kinase 74 U/L (26-192); Creatine Kinase MB 1.9 ng/ml (0.5-3.6); Globulin 3.8 gm/dl (2.5-4.0); Total Protein 7.2 gm/dl (6.4-8.2); Troponin I < 0.015 ng/ml (0-0.045)
[2020-07-22] MEDS ORDERED: DEXTROSE 50% 50 ML SYRINGE IV ONE (22:34)
[2020-07-22] MEDS ORDERED: INSULIN HUMAN REGULAR PER UNIT 10 UNITS in SYRINGE 9.9 ML IV ONE (22:45)
[2020-07-23] MEDS ORDERED: GLYCERIN PR PRN (03:22)
[2020-07-23] MEDS ORDERED: MENTHOL TOP PRN (03:22)
[2020-07-23] MEDS ORDERED: PETROLATUM PR PRN (03:22)
[2020-07-23] MEDS ORDERED: CAMPHOR TOP PRN (03:22)
[2020-07-23] MEDS ORDERED: ONDANSETRON INJ 2 MG/ML 2 ML VIAL IV PRN (03:22)
[2020-07-23] MEDS ORDERED: ACETAMINOPHEN 325 MG TAB PO PRN (03:22)
[2020-07-23] MEDS ORDERED: PHENYLEPHRINE PR PRN (03:22)
[2020-07-23] MEDS ORDERED: SHARK LIVER OIL PR PRN (03:22)
[2020-07-23] MEDS ORDERED: NON-FORMULARY MEDICATION (Acetaminophen 650 MG) PO PRN (03:22)
[2020-07-23] MEDS ORDERED: CERAMIDES TOP PRN (03:22)
[2020-07-23] MEDS: CALCIUM 600MG + VIT D 400 IU TAB PO SCH ×3 (04:45→21:36)
[2020-07-23] MEDS: SODIUM CHLORIDE 0.9% 1000ML 1,000 ML IV SCH ×2 (04:45→17:00)
[2020-07-23] MEDS ORDERED: COUGH DROP (SUGAR FREE) LOZ 24 LOZ/1 BOX BUCCAL PRN (05:11)
[2020-07-23] MEDS ORDERED: HYDROCORTISONE 1% CRM 30 GM TUBE EXT PRN (05:13)
--- NOTE | 2020-07-23 05:27 | History & Physical Report ---
Date of Service July 23, 2020 Assessment & Plan (1) Head injury: Head injury/status post fall from commode- CT head negative for acute event. Daughter feels her mother is back at baseline. Present on Admission?: Yes (2) Fall: Daughter reports that her had just finished physical therapy, and was about to begin occupational therapy. We will consult PT/OT while in hospital. Present on Admission?: Yes (3) Diarrhea: Her daughter reports that the patient periodically gets unexplained loose stools per day. Stool studies are pending at this time. No recent antibiotic use. May be a food sensitivity, and food diary should be kept. Present on Admission?: Yes (4) Acute dehydration: Patient did receive 2 L normal saline while in the ED. We will continue NSS at 80 mils per hour. Follow laboratories in a.m. Present on Admission?: Yes (5) CAD (coronary artery disease): CAD/hypertension/ischemic heart disease/chronic diastolic CHF- Continue aspirin 81 mg daily, clopidogrel 75 mg daily and metoprolol tartrate 75 mg p.o. twice daily with hold parameters. Hold furosemide and lisinopril. Monitor on telemetry for possible arrhythmia. Present on Admission?: Yes (6) Chronic diastolic CHF (congestive heart failure): See above Present on Admission?: Yes (7) Ischemic heart disease: See above Present on Admission?: Yes (8) HTN (hypertension): See above Present on Admission?: Yes (9) HLD (hyperlipidemia): Continue atorvastatin 40 mg daily Present on Admission?: Yes (10) Vascular dementia: Vascular dementia/depression- Continue phenelzine, melatonin and gabapentin Present on Admission?: Yes (11) Depression: See above Present on Admission?: Yes (12) Hypothyroidism: Continue levothyroxine 88 mcg daily Present on Admission?: Yes Admission and Anticipated Discharge Date Admission Date: July 23, 2020 History of Present Illness Chief Complaint: The patient presents to the emergency department from [facility], after a fall where she slid off the toilet, and thinks that she hit the back of her head on the sink. Primary Care Provider: [facility] The patient is an 80-year-old female with a past medical history including depression, chronic diastolic CHF, osteoporosis, ischemic heart disease, hypothyroidism, CAD, hyperlipidemia, hypertension, vascular dementia, TIA, brain aneurysm and carotid artery dissection. The HPI and review of systems are somewhat limited due to the patient's dementia, however, her daughter is present in the room, and supplies a significant part of information. The patient periodically has loose stools, and when in the bathroom this evening, she slipped off the commode, falling and hitting her head on the back of the sink. She had a laceration that was repaired in the ED. Her daughter reports that this has been investigated in the past, without any determination of the episodic nature of her loose stools. In the emergency department, work-up included a CT scan of the head without contrast, which showed chronic small vessel disease, old lacunar infarcts and a left posterior parietal scalp hematoma. Significant laboratories: COVID-19 negative, C. difficile negative, creatinine 1.53, potassium 5.5 and glucose 143. While in the ED, the patient received normal saline 1 L boluses x2, and an amp of D50 followed by 10 units regular insulin IV. Allergies Allergy/AdvReac Type Severity Reaction Status Date / Time bee venom protein (honey bee) Allergy Unknown Verified 07/22/20 22:25 codeine Allergy Unknown Verified 07/22/20 22:25 levofloxacin [From Levaquin] Allergy Unknown Verified 07/22/20 22:25 meperidine [From Demerol] Allergy Unknown Verified 07/22/20 22:25 morphine Allergy Unknown Verified 07/22/20 22:25 Home Medications Home Medications Medication Instructions Recorded Confirmed Type acetaminophen 650 mg 650 mg PO Q6 PRN tab 07/13/19 07/22/20 History tablet,extended release alendronate 70 mg tablet 70 mg PO WEEKLY tab 07/13/19 07/22/20 History aspirin 81 mg tablet,delayed 81 mg PO DAILY 07/13/19 07/22/20 History release clopidogrel 75 mg tablet 75 mg PO DAILY 07/13/19 07/22/20 History furosemide 20 mg tablet 20 mg PO QAM 07/13/19 07/22/20 History levothyroxine 88 mcg capsule 88 mcg PO DAILY 07/13/19 07/22/20 History lisinopril 5 mg tablet 5 mg PO DAILY 07/13/19 07/22/20 History melatonin 5 mg tablet 5 mg PO HS 07/13/19 07/22/20 History metoprolol tartrate 75 mg tablet 75 mg PO BID 07/13/19 07/22/20 History multivitamin 1 tab PO DAILY 07/13/19 07/22/20 History phenelzine 15 mg tablet 30 mg PO BID tab 07/13/19 07/22/20 History potassium chloride 20 mEq 20 meq PO BID 07/13/19 07/22/20 History tablet,extended release CeraVe 1 applic TOPICAL UD PRN 08/31/19 07/22/20 History acetaminophen [Tylenol Arthritis 650 mg PO TID 08/31/19 07/22/20 History Pain] calcium carbonate-vitamin D3 1 tab PO DAILY 08/31/19 07/22/20 History [Calcium 600 + D(3)] gabapentin [Neurontin] 300 mg PO HS 08/31/19 07/22/20 History atorvastatin 40 mg PO DAILY #30 tab 09/02/19 07/22/20 Rx hydrocortisone 1 % topical cream 1 appln TOP Q12H PRN 12/07/19 07/22/20 History loperamide 1 mg/7.5 mL oral liquid 1 mg PO Q6H PRN 12/07/19 07/22/20 History camphor-menthol [Biofreeze] 1 applic TOPICAL Q4 PRN 07/22/20 07/22/20 History hexylresorcinol [Sucrets] 1 selena PO .Q2HRS PRN 07/22/20 07/22/20 History phenelzine 15 mg PO .QAFTERNOON 07/22/20 07/22/20 History phenyleph-shark odq-heqa-ism 1 applic FL BID PRN 07/22/20 07/22/20 History [Preparation H] psyllium husk [Metamucil] 0.4 g PO QAM 07/22/20 07/22/20 History Past Med/Surg History Medical History CAD (coronary artery disease) Chronic diastolic CHF (congestive heart failure) Coronary artery sclerosis Depression HLD (hyperlipidemia) HTN (hypertension) Hypothyroidism Ischemic heart disease Osteoporosis TIA (transient ischemic attack) Vascular dementia Surgical History H/O heart artery stent S/P appendectomy S/P hysterectomy Status post left knee replacement Family History Mother , age 64 from a motor vehicle accident. No problems noted. Father , age 87 Dementia Heart disease Osteoarthritis Social History Smoking Status: Former smoker packs per day: 0.5; Number of Years Since Quit: 2; Second Hand Exposure: No; Do You Dip or Chew Tobacco: No; Tobacco Cessation Education Requested by Patient: No Hx Alcohol Use: No Hx Substance Use: No Preferred Language: Haitian Communication Ability: Effective Communication Ability Comment: [facility] Sugar Trucker Required: No Beliefs That Will Affect Care: None marital status: / Current Living Situation: Long-Term Current Living Situation Comment: [facility] current occupational status: retired How many Children do You have: 2 Other Information That Helps Us Care for You: No other: Retired age 70 [place] [employer] in various jobs. Feels Safe at Home: Yes Safety Concerns: Feels Safe At This Time Assistive Devices: Walker Review of Systems Review of Systems: As per daughter. Physical Exam Physical Exam: The patient is awake, and mildly lethargic, scalp laceration is noted. Lying in bed and in no acute distress. HEENT--PERRL, EOMI, mucous membranes and oropharynx dry. Neck--supple. No JVD. No bruits. Thyroid normal, trachea midline, no adenopathy. Heart--normal S1 and S2. No murmurs, rubs or gallops. Lungs--clear bilaterally, no respiratory distress, no accessory muscle use. Abdomen--normal bowel sounds and soft. Nontender. Nondistende. Extremities--no cyanosis or clubbing. No edema. Dermatologic--normal skin turgor, normal color, no abnormal lymph nodes, no rash. Neurologic--cranial nerves II through XII grossly intact. Rheumatologic--normal range of motion. Psychiatric--normal affect. Results & Data Results & Data ([facility]) Vital Signs (Past 12 Hours) Vital Signs Temp Pulse Pulse Resp BP BP Pulse Ox 07/23/20 03:50 98.4 F 75 18 170/78 H 89 L 07/23/20 02:32 67 15 125/58 L 93 07/23/20 02:30 67 15 93 07/23/20 02:01 65 14 93 10/11/20 02:00 65 16 132/72 94 07/23/20 01:32 66 17 92 07/23/20 01:31 63 19 142/68 H 93 07/23/20 01:30 69 17 93 07/23/20 01:02 67 15 94 07/23/20 01:01 53 L 16 139/73 93 07/23/20 01:00 68 18 93 07/23/20 00:33 69 20 94 07/23/20 00:32 71 16 144/60 H 92 07/23/20 00:31 69 22 91 07/23/20 00:01 52 L 15 91 07/23/20 00:00 56 L 15 125/62 94 07/22/20 23:31 65 18 94 07/22/20 23:30 65 19 137/52 L 93 07/22/20 23:01 62 14 93 07/22/20 23:00 61 14 106/55 L 93 07/22/20 22:31 63 15 92 07/22/20 22:30 62 16 127/56 L 93 07/22/20 22:01 61 14 94 07/22/20 22:00 61 17 125/58 L 94 07/22/20 21:53 61 17 94 07/22/20 21:52 61 16 139/66 94 07/22/20 21:51 62 17 07/22/20 21:08 65 20 95 07/22/20 21:07 65 21 98/37 L 95 07/22/20 21:05 64 16 94 07/22/20 20:45 62 20 95/60 L 97 07/22/20 20:40 97 07/22/20 20:31 57 L 20 84/39 L 97 07/22/20 20:14 98.4 F 65 18 105/45 L 97 Laboratory Results Laboratory Results WBC 10.64 K/uL (4.8-10.8) 07/22/20 20:40 RBC 3.62 M/uL (4.2-5.4) L 07/22/20 20:40 Hgb 11.8 g/dL (12.0-16.0) L 07/22/20 20:40 Hct 37.2 % (37-47) 07/22/20 20:40 MCV 102.8 fL (80-100) H 07/22/20 20:40 MCH 32.6 pg (25-34) 07/22/20 20:40 MCHC 31.7 g/dL (32-36) L 07/22/20 2040 RDW Std Deviation 52.8 fL (36.4-46.3) H 07/22/20 20:40 RDW Coeff of Abby 14.0 % (11.5-14.5) 07/22/20:40 Plt Count 243 K/uL (130-400) 07/22/20 20:40 MPV 9.3 fL (7.4-10.4) 07/22/20 20:40 Immature Gran % (Auto) 0.1 % 07/22/20 20:40 Neut % (Auto) 58.0 % 07/22/20 20:40 Lymph % (Auto) 27.9 % 07/22/20 20:40 Catron % (Auto) 9.0 % 07/22/20 20:40 Eos % (Auto) 4.8 % 07/22/20 20:40 Baso % (Auto) 0.2 % 07/22/20 20:40 Neut # (Auto) 6.17 K/uL (1.4-6.5) 07/22/20 20:40 Lymph # (Auto) 2.97 K/uL (1.2-3.4) 07/22/20 20:40 Catron # (Auto) 0.96 K/uL (0.11-0.59) H 07/22/20 20:40 Eos # (Auto) 0.51 K/uL (0-0.5) H 07/22/20 20:40 Baso # (Auto) 0.02 K/uL (0-0.2) 07/22/20 20:40 Immature Gran # (Auto) 0.01 K/uL (0.00-0.02) 07/22/20 20:40 Sodium 139 mmol/L (136-145) 07/22/20 20:40 Potassium 5.5 mmol/L (3.5-5.1) H 07/22/20 20:40 Chloride 109 mmol/L (98-107) H 07/22/20 20:40 Carbon Dioxide 25 mmol/L (21-32) 07/22/20 20:40 Anion Gap 5.0 (3-11) 07/22/20 20:40 BUN 27 mg/dl (7-18) H 07/22/20 20:40 Creatinine 1.53 mg/dl (0.6-1.2) H 07/22/20 20:40 Est Cr Clr Drug Dosing 26.7 ml/min 07/22/20 20:40 Est GFR ( Amer) 36.8 07/22/20 20:40 Est GFR (Non-Af Amer) 31.8 07/22/20 20:40 BUN/Creatinine Ratio 17.5 (10-20) 07/22/20 20:40 Glucose 143 mg/dl (70-99) H 07/22/20 20:40 POC Glucose 108 mg/dl (70-99) H 07/23/20 01:08 Calcium 9.1 mg/dl (8.5-10.1) 07/22/20 20:40 Total Bilirubin 0.4 mg/dl (0.2-1) 07/22/20 20:40 AST 32 U/L (15-37) 07/22/20 20:40 ALT 15 U/L (12-78) 07/22/20 20:40 Alkaline Phosphatase 123 U/L (45-117) H 07/22/20 20:40 Total Creatine Kinase 74 U/L (26-192) 07/22/20 20:40 CK-MB (CK-2) 1.9 ng/ml (0.5-3.6) 07/22/20 20:40 CK/CKMB % Calc 2.6 (0-3.0) 07/22/20 20:40 Troponin I < 0.015 ng/ml (0-0.045) 07/22/20 20:40 Total Protein 7.2 gm/dl (6.4-8.2) 07/22/20 20:40 Albumin 3.4 gm/dl (3.4-5.0) 07/22/20 20:40 Globulin 3.8 gm/dl (2.5-4.0) 07/22/20 20:40 Albumin/Globulin Ratio 0.9 (0.9-2) 07/22/20 20:40 TSH 2.300 uIu/ml (0.300-4.500) 07/22/20 20:40 Stl C. diff Tox B Gene Negative Cdiff Gene (Neg) 07/22/20 20:12 COVID-19 Eval Order Covid19 Done at [facility] 07/22/20 22:00 COVID-19 PCR NEGATIVE (Negative) 07/22/20 22:00 Diagnostic Findings [facility] Patient: ATTILA HARRISON (Female) : 40 Status: ER Date: 07/22/20 21:02 Room #: History: FALL, PT HIT POSTERIOR HEAD Slices: 58 Priors: Tech: Mo Patel @ [id number] Exams: CT HEAD Contrast: Accession Numbers: [id number] Preliminary Findings Only See Final Report For Complete Findings CT HEAD: Comparison to August 31, 2019 There is a left posterior parietal scalp hematoma and laceration. No skull fracture is seen. The paranasal sinuses and mastoid air cells are within normal limits. There is patchy periventricular and deep white matter low density throughout the cerebral consistent with chronic small vessel disease and old lacunar infarcts. There is no mass lesion or midline shift. No evidence of acute large vessel infarct or intracranial hemorrhage. Radiologist: Ryan Murrell MD Study ready at 21:09 and initial results transmitted at 21:29 *This report constitutes a preliminary interpretation only. Non-acute findings felt to be unrelated to the clinical presentation may not be discussed in this report. The study will be interpreted and a final report will be generated by the local Radiologist the following shift. To reach the hospital radiology department call [phone]. If a discrepancy is found between the preliminary and final interpretations of this study, please notify us via our Client Portal at [email or web address] QA Exams.You can also fax this report with a description of the discrepancy, or include the final report, to our daytime fax number [phone].If faxing, please indicate the severity of discrepancy using one of the following categories: [ ] 1 - Agree/Informational [ ] 2 - Unlikely to Affect Management [ ] 3 - Possible Eventual Change of Management [ ] 4 - Probable Immediate Change of Management For all other patient related information, please fax us at [phone]. [id number] Code Status & VTE Plan Code Status Full code VTE Prophylaxis Plan VTE Prophylaxis will be ordered: Yes PG Care Time/CCT Total # of Minutes Spent Total Time Spent with Patient: Total time spent is greater than 50% in coordination of care (as documented) at patient's floor/unit and/or counseling patient: Coding Level of Care Code 83157 Initial Inpt Care Lvl 3 Diagnoses Head injury S09.90XA Encounter type: initial encounter Fall W19.XXXA Encounter type: initial encounter Diarrhea R19.7 Diarrhea type: unspecified type Acute dehydration E86.0 CAD (coronary artery disease) I25.10 Chronic diastolic CHF (congestive heart failure) I50.32 Ischemic heart disease I25.9 HTN (hypertension) I10 HLD (hyperlipidemia) E78.5 Vascular dementia F01.50 Depression F32.9 Hypothyroidism E03.9 (1) Diarrhea Diarrhea type: unspecified type Qualified Code(s): R19.7 - Diarrhea, unspecified (2) Fall Encounter type: initial encounter Qualified Code(s): W19.XXXA - Unspecified fall, initial encounter (3) Head injury Encounter type: initial encounter Qualified Code(s): S09.90XA - Unspecified injury of head, initial encounter
[2020-07-23 05:36] LABS: Basophils # (auto) 0.02 K/uL (0-0.2); Basophils % (auto) 0.2 %; Eosinophils # (auto) 0.37 K/uL (0-0.5); Eosinophils % (auto) 3.4 %; Hematocrit (blood only) 37.4 % (37-47); Hemoglobin 11.6 g/dL (12.0-16.0); Immature Granulocytes # (auto) 0.03 K/uL (0.00-0.02); Immature Granulocytes % (auto) 0.3 %; Lymphocytes # (auto) 1.73 K/uL (1.2-3.4); Mean Corpuscular Hemoglobin 32.2 pg (25-34); Mean Corpuscular Volume 103.9 fL (80-100); Mean Platelet Volume 9.4 fL (7.4-10.4); Monocytes # (auto) 1.27 K/uL (0.11-0.59); Monocytes % (auto) 11.7 %; Neutrophils # (auto) 7.41 K/uL (1.4-6.5); Neutrophils % (auto) 68.4 %; Platelet Count 182 K/uL (130-400); RDW Coefficient of Variation 13.9 % (11.5-14.5); RDW Standard Deviation 52.4 fL (36.4-46.3); White Blood Count 10.83 K/uL (4.8-10.8)
[2020-07-23 06:02] LABS: BUN Creatinine Ratio 21.3 (10-20); Blood Urea Nitrogen 21 mg/dl (7-18); Calcium 8.2 mg/dl (8.5-10.1); Carbon Dioxide 25 mmol/L (21-32); Chloride 115 mmol/L (98-107); Creatinine Clr Calc Pharmacy 41.3 ml/min; Est GFR (African American) 61.6; Est GFR (Non-African American) 53.2; Glucose 113 mg/dl (70-99); Phosphorus 3.7 mg/dl (2.5-4.9); Potassium 4.5 mmol/L (3.5-5.1); Sodium 142 mmol/L (136-145); Troponin I < 0.015 ng/ml (0-0.045)
[2020-07-23] MEDS: LEVOTHYROXINE SODIUM 88 MCG TABLET PO SCH (06:25)
--- NOTE | 2020-07-23 08:35 | Hospitalist Progress Note ---
Date of Service July 23, 2020 Assessment & Plan (1) Head injury: Head injury/status post fall from commode-family now refused any significant head injury CT head negative for acute event. Daughter reinforces that her mother is back at baseline. (2) Fall: Daughter reports that her had just finished physical therapy, and was about to begin occupational therapy. We will [facility] (3) Diarrhea: Her daughter reports that the patient periodically has diarrhea alternating with constipation time to time. Stool studies are pending at this time. No recent antibiotic use. May be a food sensitivity, and food diary should be kept. (4) Acute dehydration: Patient did receive 2 L normal saline while in the ED. We will continue NSS at 80 mils per hour. Resolved clinically (5) CAD (coronary artery disease): CAD/hypertension/ischemic heart disease/chronic diastolic CHF- Continue aspirin 81 mg daily, clopidogrel 75 mg daily and metoprolol tartrate 75 mg p.o. twice daily with hold parameters. Continue to hold furosemide and lisinopril. No arrhythmia seen on telemetry (6) Chronic diastolic CHF (congestive heart failure): See above (7) Ischemic heart disease: See above (8) HTN (hypertension): See above (9) HLD (hyperlipidemia): Continue atorvastatin 40 mg daily (10) Vascular dementia: Vascular dementia/depression- Continue phenelzine, melatonin and gabapentin (11) Depression: See above (12) Hypothyroidism: Continue levothyroxine 88 mcg daily Admission and Anticipated Discharge Date Admission Date: July 23, 2020 Subjective Patient was seen in the presence of her daughter she is actually feeling quite well the story really evolves that she just slid off the commode she may have been slightly lightheaded. She frequently has constipation alternating with diarrhea. She cannot recall a diarrheal event nor any significant rectal pres sure or pain. She has had negative troponins x2- COVID test negative chest x- ray EKG Review of Systems Review of Systems: Mild distress and fatigue no headache, blurry or double vision no speech or swallowing issues no chest pain, pressure or palpitations no shortness of breath, cough or wheezes no abdominal pain, nausea or vomiting no dysuria, hematuria or frequency no focal joint pain or swelling no back pain, CVA tenderness or radicular pain no bruising, bleeding or rashes no focal signs of weakness or numbness or altered sensation Physical Exam Physical Exam: The patient appeared well nourished and normally developed. She appears chronically ill Vital signs as documented. Head exam is normocephalic atraumatic no scleral icterus Neck is without JVD, thyromegaly, or carotid bruits. Lungs are clear to auscultation, no focal loss of breath sounds Cardiac exam, Rhythm is regular. Stop ejection murmur is heard Abdominal exam reveals normal bowel sounds, soft non tender, no masses Extremities are nonedematous and both pedal pulses are present Neurologic exam is alert and oriented, significantly deconditioned Skin is without bruises or rashes Psychologically is without concerns for anxiety or depression. Results & Data Results & Data ([facility]) Vital Signs (Past 12 Hours) Vital Signs Temp Pulse Pulse Resp BP BP BP 07/23/20 06:26 98.4 F 74 18 112/44 L 07/23/20 03:50 98.4 F 75 18 170/78 H 07/23/20 02:32 67 15 125/58 L 07/23/20 02:30 67 15 07/23/20 02:01 65 14 07/23/20 02:00 65 16 132/72 07/23/20 01:32 66 17 07/23/20 01:31 63 19 142/68 H 07/23/20 01:30 69 17 07/23/20 01:02 67 15 07/23/20 01:01 53 L 16 139/73 07/23/20 01:00 68 18 07/23/20 00:33 69 20 07/23/20 00:32 71 16 144/60 H 07/23/20 00:31 69 22 07/23/20 00:01 52 L 15 07/23/20 00:00 56 L 15 125/62 07/22/20 23:31 65 18 07/22/20 23:30 65 19 137/52 L 07/22/20 23:01 62 14 07/22/20 23:00 61 14 106/55 L 07/22/20 22:31 63 15 07/22/20 22:30 62 16 127/56 L 07/22/20 22:01 61 14 07/22/20 22:00 61 17 125/58 L 07/22/20 21:53 61 17 07/22/20 21:52 61 16 139/66 07/22/20 21:51 62 17 07/22/20 21:08 65 20 07/22/20 21:07 65 21 98/37 L 07/22/20 21:05 64 16 07/22/20 20:45 62 20 95/60 L 07/22/20 20:40 Pulse Ox 07/23/20 06:26 95 07/23/20 03:50 89 L 07/23/20 02:32 93 07/23/20 02:30 93 07/23/20 02:01 93 07/23/20 02:00 94 07/23/20 01:32 92 07/23/20 01:31 93 07/23/20 01:30 93 07/23/20 01:02 94 07/23/20 01:01 93 07/23/20 01:00 93 07/23/20 00:33 94 07/23/20 00:32 92 07/23/20 00:31 91 07/23/20 00:01 91 07/23/20 00:00 94 07/22/20 23:31 94 07/22/20 23:30 93 07/22/20 23:01 93 07/22/20 23:00 93 07/22/20 22:31 92 07/22/20 22:30 93 07/22/20 22:01 94 07/22/20 22:00 94 07/22/20 21:53 94 07/22/20 21:52 94 07/22/20 21:51 07/22/20 21:08 95 07/22/20 21:07 95 07/22/20 21:05 94 07/22/20 20:45 97 07/22/20 20:40 97 PG Care Time/CCT Total # of Minutes Spent Total Time Spent with Patient: Total time spent is greater than 50% in coordination of care (as documented) at patient's floor/unit and/or counseling patient: Coding Level of Care Code 31134 Subseq Hosp Care Lvl 2 Diagnoses Head injury S09.90XA Encounter type: initial encounter Fall W19.XXXA Encounter type: initial encounter Diarrhea R19.7 Diarrhea type: unspecified type Acute dehydration E86.0 CAD (coronary artery disease) I25.10 Chronic diastolic CHF (congestive heart failure) I50.32 Ischemic heart disease I25.9 HTN (hypertension) I10 HLD (hyperlipidemia) E78.5 Vascular dementia F01.50 Depression F32.9 Hypothyroidism E03.9 (1) Diarrhea Diarrhea type: unspecified type Qualified Code(s): R19.7 - Diarrhea, unspecified (2) Head injury Encounter type: initial encounter Qualified Code(s): S09.90XA - Unspecified injury of head, initial encounter (3) Fall Encounter type: initial encounter Qualified Code(s): W19.XXXA - Unspecified fall, initial encounter
--- NOTE | 2020-07-23 08:58 | XRay Report ---
XR chest 1V portable CLINICAL HISTORY: weakness COMPARISON STUDY: Chest radiograph August 31, 2019. FINDINGS: Cardiomegaly is unchanged. There is no evidence for pulmonary edema or pneumonia. There is no pneumothorax or pleural effusion. Severe osteoarthritis of the left glenohumeral joint is incident ally noted. IMPRESSION: No acute cardiopulmonary findings. No change in appearance of the chest. ACT 112: Negative or not required by law. Electronically signed by: Juan Manrique M.D. 07/23/2020 8:57 AM
[2020-07-23] MEDS: PSYLLIUM 58.6% POWDER PACKET PO SCH (09:01)
--- NOTE | 2020-07-23 09:01 | CT Scan Report ---
CT SCAN OF THE BRAIN WITHOUT IV CONTRAST CLINICAL HISTORY: Fall. Head injury. COMPARISON STUDY: CT of the brain dated 08/31/2019. TECHNIQUE: Unenhanced axial CT scan of the brain is performed from the vertex to the skull base. A do se lowering technique was utilized adhering to the principles of ALARA. CT DOSE: 537.48 mGy.cm FINDINGS: Brain parenchyma: There are age-related involutional changes noting moderate subcortical and periven tricular microangiopathic change. There is no hemorrhage, mass effect, or evidence of acute territori al ischemia by CT criteria. A chronic lacunar infarct is noted in the left caudate head. Walter-white m atter differentiation is preserved. No extra-axial fluid collection is seen. Ventricles, sulci, cisterns: Prominent secondary to involutional change. Intracranial vasculature: There is atherosclerotic calcification of the cavernous carotid and vertebr al arteries. Calvarium: The skeletal structures are osteopenic. There is no depressed calvarial fracture. Soft tissues: There is a left occipital scalp contusion/laceration. Sinuses and mastoids: The visualized paranasal sinuses are clear. The mastoid air cells are well pneu matized. Orbits: The bony orbits are grossly intact. IMPRESSION: There is no hemorrhage, mass effect, or evidence of acute territorial ischemia by CT aura narvaez. ACT 112: Negative or not required by law. Electronically signed by: Mo Bunch M.D. 07/23/2020 9:00 AM
[2020-07-23] MEDS: HEPARIN SOD 5,000 UNIT/0.5 ML VIAL SQ SCH ×2 (09:22→21:53)
[2020-07-23] MEDS: CLOPIDOGREL BISULFATE 75 MG TAB PO SCH (09:24)
[2020-07-23] MEDS: ASPIRIN 81 MG ECTAB PO SCH (09:24)
[2020-07-23] MEDS: FUROSEMIDE 20 MG TAB PO SCH (09:25)
[2020-07-23] MEDS: ATORVASTATIN 40 MG TAB PO SCH (09:25)
[2020-07-23] MEDS: METOPROLOL TARTRATE 25 MG TAB PO SCH ×2 (09:25→21:37)
[2020-07-23] MEDS: MULTIVITAMIN TAB PO SCH (09:25)
[2020-07-23] MEDS: ACETAMINOPHEN 325 MG TAB PO SCH ×3 (09:25→21:35)
[2020-07-23] MEDS: PHENELZINE SULFATE PO SCH ×3 (09:26→22:19)
--- NOTE | 2020-07-23 12:10 | XCELERA ---
[id number] \\[id number]
--- NOTE | 2020-07-23 12:22 | Electrocardiogram Report ---
Test Reason : Blood Pressure : / mmHG Vent. Rate : 060 BPM Atrial Rate : 060 BPM P-R Int : 180 ms QRS Dur : 092 ms QT Int : 468 ms P-R-T Axes : 054 056 054 degrees QTc Int : 468 ms Sinus rhythm with Premature atrial complexes Early repolarization Otherwise normal ECG When compared with ECG of 31-AUG-2019 16:31, Premature atrial complexes are now Present Confirmed by Michael Wood ([id number]) on 07/23/2020 12:21:45 PM Referred By: Eran simms [facility] Confirmed By:Michael Wood
[2020-07-23] MEDS ORDERED: MELATONIN 3 MG TAB PO SCH (21:00)
[2020-07-23] MEDS ORDERED: GABAPENTIN 300 MG CAP PO SCH (21:00)
[2020-07-24 02:38] LABS: Appearance Urine Clear (Clear); Bacteria Urine Automated Negative (Negative); Bilirubin Urine Negative (Negative); Blood Urine Negative (Negative); Cast Urine Automated 0 /lpf (0-5); Color Urine Yellow; Epithelial Cell Urine Auto 0-5 /lpf (0-5); Glucose Urine UA Negative (Negative); Ketones Urine Negative (Negative); Leukocyte Esterase Urine Trace (Negative); Nitrite Urine Negative (Negative); Protein Urine Negative (Negative); RBC Urine Automated 0-4 /hpf (0-4); Specific Gravity Urine 1.016 (1.000-1.030); Urobilinogen Urine Negative (Negative)
[2020-07-24] MEDS: LEVOTHYROXINE SODIUM 88 MCG TABLET PO SCH (06:05)
[2020-07-24 06:36] LABS: Basophils # (auto) 0.01 K/uL (0-0.2); Basophils % (auto) 0.2 %; Eosinophils # (auto) 0.31 K/uL (0-0.5); Eosinophils % (auto) 5.3 %; Hematocrit (blood only) 32.1 % (37-47); Hemoglobin 10.2 g/dL (12.0-16.0); Lymphocytes # (auto) 2.35 K/uL (1.2-3.4); Lymphocytes % (auto) 40.1 %; Mean Corpuscular Hemoglobin 32.8 pg (25-34); Mean Corpuscular Hgb Conc 31.8 g/dL (32-36); Mean Corpuscular Volume 103.2 fL (80-100); Mean Platelet Volume 9.4 fL (7.4-10.4); Monocytes # (auto) 0.54 K/uL (0.11-0.59); Monocytes % (auto) 9.2 %; Neutrophils # (auto) 2.65 K/uL (1.4-6.5); Neutrophils % (auto) 45.2 %; Platelet Count 178 K/uL (130-400); RDW Coefficient of Variation 13.7 % (11.5-14.5); RDW Standard Deviation 51.7 fL (36.4-46.3); Red Blood Count 3.11 M/uL (4.2-5.4); White Blood Count 5.86 K/uL (4.8-10.8)
[2020-07-24 07:15] LABS: Albumin Level 2.7 gm/dl (3.4-5.0); BUN Creatinine Ratio 14.7 (10-20); Calcium 8.7 mg/dl (8.5-10.1); Creatinine Clr Calc Pharmacy 54.3 ml/min; Est GFR (African American) 85.9; Est GFR (Non-African American) 74.1; Phosphorus 3.5 mg/dl (2.5-4.9); Potassium 4.4 mmol/L (3.5-5.1)
[2020-07-24] MEDS: CALCIUM 600MG + VIT D 400 IU TAB PO SCH (09:41)
[2020-07-24] MEDS: CLOPIDOGREL BISULFATE 75 MG TAB PO SCH (09:42)
[2020-07-24] MEDS: ATORVASTATIN 40 MG TAB PO SCH (09:42)
[2020-07-24] MEDS: ASPIRIN 81 MG ECTAB PO SCH (09:42)
[2020-07-24] MEDS: MULTIVITAMIN TAB PO SCH (09:42)
[2020-07-24] MEDS: PSYLLIUM 58.6% POWDER PACKET PO SCH (09:43)
[2020-07-24] MEDS: FUROSEMIDE 20 MG TAB PO SCH (09:43)
[2020-07-24] MEDS: ACETAMINOPHEN 325 MG TAB PO SCH ×2 (09:44→14:01)
[2020-07-24] MEDS: METOPROLOL TARTRATE 25 MG TAB PO SCH (09:46)
[2020-07-24] MEDS: PHENELZINE SULFATE PO SCH ×2 (09:46→14:00)
[2020-07-24] MEDS: HEPARIN SOD 5,000 UNIT/0.5 ML VIAL SQ SCH (09:47)
--- NOTE | 2020-07-24 15:47 | Communication Note ---
Date of Service: July 24, 2020 By CMS guidelines, a determination that the admission or continued stay is not medically necessary has been made by a member of the UR committee and a ph ysician for this hospital stay, therefore a Code 44 will be completed and the Inpatient admission will be changed to outpatient.
--- NOTE | 2020-07-25 08:50 | Discharge Summary ---
Date of Service July 24, 2020 Admission HPI Per Admitting Provider The patient is an 80-year-old female with a past medical history including depression, chronic diastolic CHF, osteoporosis, ischemic heart disease, hypothyroidism, CAD, hyperlipidemia, hypertension, vascular dementia, TIA, brain aneurysm and carotid artery dissection. The HPI and review of systems are somewhat limited due to the patient's dementia, however, her daughter is present in the room, and supplies a significant part of information. The patient periodically has loose stools, and when in the bathroom this evening, she slipped off the commode, falling and hitting her head on the back of the sink. She had a laceration that was repaired in the ED. Her daughter reports that this has been investigated in the past, without any determination of the episodic nature of her loose stools. In the emergency department, work-up included a CT scan of the head without contrast, which showed chronic small vessel disease, old lacunar infarcts and a left posterior parietal scalp hematoma. Significant laboratories: COVID-19 negative, C. difficile negative, creatinine 1.53, potassium 5.5 and glucose 143. While in the ED, the patient received normal saline 1 L boluses x2, and an amp of D50 followed by 10 units regular insulin IV. Principal Diagnosis Syncope, likely vasovagal Discharge Exam Constitutional well developed, + thin and + frail appearing; no acute distress Eyes PERRL, conjunctivae normal, anicteric sclerae ENMT external ear and nose normal, oropharynx normal Neck trachea midline, no thyromegaly Respiratory normal respiratory effort, lungs clear to auscultation Cardiovascular RRR, no murmur, no edema Gastrointestinal (Abdomen) normal bowel sounds, soft, nontender, no hepatosplenomegaly Musculoskeletal no cyanosis or clubbing, extremities motor strength 5/5 Skin no rashes, warm and dry Neurologic patellar DTR's 2+ bilat, sensation intact and PERRL, EOMI, accommodation nl, no face palsy, no dysarthria Psychiatric A+Ox3, euthymic affect Lymphatic no cervical or axillary lymphadenopathy Discharge Data Allergies Allergy/AdvReac Type Severity Reaction Status Date / Time bee venom protein (honey bee) Allergy Unknown Verified 07/22/20 22:25 codeine Allergy Unknown Verified 07/22/20 22:25 levofloxacin [From Levaquin] Allergy Unknown Verified 07/22/20 22:25 meperidine [From Demerol] Allergy Unknown Verified 07/22/20 22:25 morphine Allergy Unknown Verified 07/22/20 22:25 Consultations 07/22/20 23:39 ED Decision to Admit Stat 07/23/20 03:22 Consult Case Management - Discharge Planning Routine Ordered Studies 07/22/20 19:55 CT head/brain wo con Urgent Hospital Course (1) Head injury: Head injury/status post fall from commode- no significant head trauma CT head negative for acute event. Daughter reinforces that her mother is back at baseline for two days return to [facility] (2) Fall: Daughter reports that her had just finished physical therapy, and was about to begin occupational therapy. We will consult PT/OT while in hospital. [facility] complex cleared to return by PT/OT (3) Diarrhea: Her daughter reports that the patient periodically has diarrhea alternating with constipation time to time. Stool studies are negative No recent antibiotic use. May be a food sensitivity, and food diary should be kept. (4) Acute dehydration: Patient did receive 2 L normal saline while in the ED. Resolved clinically (5) CAD (coronary artery disease): CAD/hypertension/ischemic heart disease/chronic diastolic CHF- Continue aspirin 81 mg daily, clopidogrel 75 mg daily and metoprolol tartrate 75 mg p.o. twice daily with hold parameters. resume furosemide and lisinopril. No arrhythmia seen on telemetry (6) Chronic diastolic CHF (congestive heart failure): See above (7) Ischemic heart disease: See above (8) HTN (hypertension): See above (9) HLD (hyperlipidemia): Continue atorvastatin 40 mg daily (10) Vascular dementia: Vascular dementia/depression- Continue phenelzine, melatonin and gabapentin (11) Depression: See above (12) Hypothyroidism: Continue levothyroxine 88 mcg daily Total Time Total Time Spent Total Time Spent (In Minutes): 31 Total Time Includes: Examination of the Patient, Discharge Planning and Medication Reconciliation Discharge Plan Discharge Items Patient Disposition: Transfer Group Home Fac Reason For Visit: SYNCOPE Discharge Diagnosis: Syncope Dehydration Hyperkalemia Condition on Discharge: Good Goals: continue PT/OT at SNF stay well hydrated Activity: Resume your previous activity Non-emergency contact: Primary Care Provider Call non-emergency contact if: you have any medication questions Follow-up/Referrals: Eran Pat at [facility] [Primary Care Provider] - (this week) Diet: Heart Healthy Addtl Attending Provider Instructions: Medications: no changes Likely vasovagal syncope, mild dehydration possibly due to diarrhea blood pressure, labs stable eating and drinking well for two days did well with therapy today, at baseline, can return to SNF Pending Studies at Discharge: No Stand-Alone Forms: My [facility] Skilled Items Patient informed of condition?: Yes DNR: No Discharge Level of Care: Skilled Communicable Disease: No Discharge Prognosis: Stable Lines: None Urinary Catheter: No Medications and DC Order Prescriptions: Continued acetaminophen 650 mg tablet extended release 650 mg PO Q6 PRN (Reason: Pain) RF: 0 alendronate 70 mg tablet 70 mg PO WEEKLY RF: 0 aspirin 81 mg tablet,delayed release (DR/EC) 81 mg PO DAILY RF: 0 clopidogrel 75 mg tablet 75 mg PO DAILY RF: 0 multivitamin [Daily-Karla] tablet 1 tab PO DAILY RF: 0 furosemide 20 mg tablet 20 mg PO QAM RF: 0 levothyroxine 88 mcg capsule 88 mcg PO DAILY RF: 0 lisinopril 5 mg tablet 5 mg PO DAILY RF: 0 melatonin 5 mg tablet 5 mg PO HS RF: 0 metoprolol tartrate 75 mg tablet 75 mg PO BID RF: 0 phenelzine 15 mg tablet 30 mg PO BID RF: 0 potassium chloride 20 mEq tablet extended release 20 meq PO BID RF: 0 loperamide 1 mg/7.5 mL liquid 1 mg PO Q6H PRN (Reason: diarrhea) RF: 0 hydrocortisone [Preparation H Hydrocortisone] 1 % cream 1 appln TOP Q12H PRN (Reason: hemorrhoids) RF: 0 gabapentin [Neurontin] 300 mg capsule 300 mg PO HS RF: 0 CeraVe Cream 1 applic TOPICAL UD PRN (Reason: ITCHY AREA) RF: 0 calcium carbonate-vitamin D3 [Calcium 600 + D(3)] 600 mg(1,500mg) -400 unit Tablet 1 tab PO DAILY RF: 0 acetaminophen [Tylenol Arthritis Pain] 650 mg Tablet Extended Release 650 mg PO TID RF: 0 atorvastatin 40 mg tablet 40 mg PO DAILY Qty: 30 RF: 0 camphor-menthol 0.2-3.5 % Gel 1 applic TOPICAL Q4 PRN (Reason: Back Pain) RF: 0 phenelzine 15 mg tablet 15 mg PO .QAFTERNOON RF: 0 hexylresorcinol Lozenge 1 selena PO .Q2HRS PRN (Reason: Sore Throat) RF: 0 phenyleph-shark [id number] Cream 1 applic MN BID PRN (Reason: Hemorrhoids) RF: 0 psyllium husk [Metamucil] 0.4 gram Capsule 0.4 g PO QAM RF: 0 Discharge Orders: Discharge Order (Routine); Ordered 07/24/20 Ordered By: Mann Winter/Other Patient Handouts: Preventing Falls Moving Safely ..., Exercises to Prevent Falls, Preventing Falls How to Prepare ... Admission Data Admit Date/Time: 07/23/20 01:07 Attending Provider: Mann Oshea Admit Provider: Last Alfonso Primary Care Provider: Eran [facility] Other Providers: Last Alfonso Other Interventions: Discharge Summary Assessment (RN) Last Done: 07/24/20 17:08 Coding Level of Care Code D/C Day Management >30 mins Diagnoses Head injury S09.90XA Encounter type: initial encounter Fall W19.XXXA Encounter type: initial encounter Diarrhea R19.7 Diarrhea type: unspecified type Acute dehydration E86.0 CAD (coronary artery disease) I25.10 Chronic diastolic CHF (congestive heart failure) I50.32 Ischemic heart disease I25.9 HTN (hypertension) I10 HLD (hyperlipidemia) E78.5 Vascular dementia F01.50 Depression F32.9 Hypothyroidism E03.9
== END 2020-07-24 17:47 ==
LOC: ED 19:42 → INTOOBSV 07-23 01:07 → SUATTDRO 07-23 01:07 → 1E 07-23 01:07 → 3W 07-23 16:47

== ENCOUNTER 2022-12-10 12:08 | Inpatient (IN) ==
--- NOTE | 2022-12-10 12:42 | Emergency Department Note ---
History of Present Illness General Chief complaint: Rectal Bleed Stated complaint: RECTAL BLEED Time Seen by Provider: 12/10/22 12:31 Source: family (Daughter at bedside) History of Present Illness Provider Complaint: + gross hematochezia Onset (ago): 1 day(s) Context: + hemorrhoids; no history of GI bleed, no rectal trauma, no anticoagulant use or no alcohol ingestion(in addition to abuse) HPI Narrative: 82-year-old female presents emergency department for GI bleed with daughter from group home. Daughter reports that the patient has history of dementia and cannot give very accurate history. She reports that the group home became concerned because there is blood in her stool in her briefs this morning. No hematuria dysuria. No fevers. No falls. No blood thinners. Home Medications Medication Instructions Recorded Confirmed Type alendronate 70 mg tablet 70 mg PO WK 07/13/19 12/10/22 History aspirin 81 mg tablet,delayed 81 mg PO DAILY 07/13/19 12/10/22 History release clopidogrel 75 mg tablet 75 mg PO DAILY 07/13/19 12/10/22 History furosemide 20 mg tablet 20 mg PO QAM 07/13/19 12/10/22 History levothyroxine 88 mcg capsule 88 mcg PO DAILY 07/13/19 12/10/22 History lisinopril 5 mg tablet 5 mg PO DAILY 07/13/19 12/10/22 History multivitamin (Daily-Karla tablet) 1 tab PO DAILY 07/13/19 12/10/22 History potassium chloride 20 mEq 20 meq PO BID 07/13/19 12/10/22 History tablet,extended release calcium carbonate 600 mg-vitamin 1 tab PO DAILY 08/31/19 12/10/22 History D3 10 mcg (400 unit) tablet (Calcium 600 + D(3)) hydrocortisone 1 % topical cream 1 appln topical Q12H PRN 12/07/19 12/10/22 History (Preparation H Hydrocortisone) hemorrhoids phenelzine 15 mg tablet See Rx Instructions .Route .COMPLEX 07/22/20 12/10/22 History psyllium husk 0.4 gram capsule 0.4 g PO QAM 07/22/20 12/10/22 History (Metamucil) Flutter Valve #1 ea 04/12/22 04/12/22 Rx ipratropium 0.5 mg-albuterol 3 mg 3 ml inhalation Q8H PRN shortness 04/12/22 12/10/22 Rx (2.5 mg base)/3 mL nebulization of breath or wheezing #180 mL soln Portable Oxygen #1 ea 06/07/22 Rx albuterol sulfate 90 mcg/actuation 2 puff inhalation Q6H PRN 11/27/22 12/10/22 Rx aerosol inhaler Shortness Of Breath Or Wheezing #18 grams Lactobacillus rhamnosus GG 10 1 cap PO DAILY 12/10/22 12/10/22 History billion cell capsule (Culturelle) acetaminophen 650 mg 650 mg PO Q6H PRN Pain 12/10/22 12/10/22 History tablet,extended release (Tylenol 8 Hour) acetaminophen 650 mg 650 mg PO TID 12/10/22 12/10/22 History tablet,extended release (Tylenol 8 Hour) albuterol sulfate 2.5 mg/3 mL 2.5 mg inhalation Q4H PRN 12/10/22 12/10/22 History (0.083 %) solution for nebulization Shortness Of Breath aripiprazole 2 mg tablet (Abilify) 1 mg PO DAILY 12/10/22 12/10/22 History docusate sodium 100 mg tablet 100 mg PO DAILY 12/10/22 12/10/22 History fluticasone fur. 100 mcg-umeclid 1 inh inhalation DAILY 12/10/22 12/10/22 History 62.5 mcg-vilant 25 mcg inhalat.powder (Trelegy Ellipta) gabapentin 100 mg capsule 100 mg PO HS 12/10/22 12/10/22 History melatonin 1 mg tablet 2 mg PO HS 12/10/22 12/10/22 History menthol 4 % topical gel (Biofreeze 1 applic topical Q4H PRN Back Pain 12/10/22 12/10/22 History (menthol)) metoprolol tartrate 50 mg tablet 75 mg PO BID 12/10/22 12/10/22 History Allergies Allergy/AdvReac Type Severity Reaction Status Date / Time bee venom protein (honey bee) Allergy Unknown Unknown Verified 12/10/22 15:33 codeine Allergy Unknown Unknown Verified 12/10/22 15:33 levofloxacin [From Levaquin] Allergy Unknown Unknown Verified 12/10/22 15:33 meperidine [From Demerol] Allergy Unknown Unknown Verified 12/10/22 15:33 morphine Allergy Unknown Unknown Verified 12/10/22 15:33 Past Med/Surg History Medical History (Updated 12/10/22 @ 20:28 by Neel Kirkland) CAD (coronary artery disease) Chronic diastolic CHF (congestive heart failure) Coronary artery sclerosis Depression HLD (hyperlipidemia) HTN (hypertension) Hypothyroidism Ischemic heart disease Osteoporosis TIA (transient ischemic attack) Vascular dementia Surgical History H/O heart artery stent S/P appendectomy S/P hysterectomy Status post left knee replacement Family History Mother , age 64 from a motor vehicle accident. No problems noted. Father , age 87 Dementia Heart disease Osteoarthritis Social History Smoking Status: Former smoker packs per day: 0.5; Second Hand Exposure: No; Hx Alcohol Use: No Hx Substance Use: No Preferred Language: Gabonese Communication Ability: Effective Watchmaker Apprentice Required: No Beliefs That Will Affect Care: None marital status: / Current Living Situation: Prison Current Living Situation Comment: [facility] current occupational status: retired How many Children do You have: 2 other: Retired age 70 working at [employer], in various jobs. Feels Safe at Home: Yes Assistive Devices: Denture - Upper, Denture - Lower, Glasses and Walker Physical Exam Vital Signs: Vital Signs - 24 hr 12/10/22 12:30 12/10/22 13:17 12/10/22 12:31 Temperature 36.8 C Temperature Source Oral Pulse Rate 68 69 68 Pulse Rate [Apical ] Pulse Rate from Sp O2 Sensor 68 Pulse Rhythm Regular Respiratory Rate 20 22 Respiratory Effort / Characteristics Non-Labored Respiratory Depth Normal Blood Pressure 110/60 Blood Pressure [Le ft Arm] Blood Pressure Gloria n 76 Blood Pressure Gloria n [Left Arm] Pulse Oximetry 94 96 Oxygen Delivery Me thod Nasal Cannula Oxygen Flow Rate 2 Sepsis Recent Feve r Within 48 Hours No Sepsis New/Unexpla ined Change in Men alexandra Status No Sepsis Action Take n by Nursing No Action Required 12/10/22 12:33 12/10/22 12:33 12/10/22 13:00 Temperature Temperature Source Pulse Rate 67 69 Pulse Rate [Apical ] Pulse Rate from Sp O2 Sensor 68 68 Pulse Rhythm Respiratory Rate 21 19 Respiratory Effort / Characteristics Respiratory Depth Blood Pressure 110/60 Blood Pressure [Le ft Arm] Blood Pressure Gloria n 76 Blood Pressure Gloria n [Left Arm] Pulse Oximetry 96 95 Oxygen Delivery Me thod Oxygen Flow Rate Sepsis Recent Feve r Within 48 Hours Sepsis New/Unexpla ined Change in Men alexandra Status Sepsis Action Take n by Nursing 12/10/22 13:30 12/10/22 14:00 12/10/22 14:01 Temperature Temperature Source Pulse Rate 71 68 68 Pulse Rate [Apical ] Pulse Rate from Sp O2 Sensor 69 68 68 Pulse Rhythm Respiratory Rate 21 23 23 Respiratory Effort / Characteristics Respiratory Depth Blood Pressure Blood Pressure [Le ft Arm] Blood Pressure Gloria n Blood Pressure Gloria n [Left Arm] Pulse Oximetry 96 97 96 Oxygen Delivery Me thod Oxygen Flow Rate Sepsis Recent Feve r Within 48 Hours Sepsis New/Unexpla ined Change in Men alexandra Status Sepsis Action Take n by Nursing 12/10/22 14:13 12/10/22 14:13 12/10/22 14:45 Temperature Temperature Source Pulse Rate 69 Pulse Rate [Apical ] 71 Pulse Rate from Sp O2 Sensor 70 Pulse Rhythm Respiratory Rate 22 24 Respiratory Effort / Characteristics Non-Labored Respiratory Depth Normal Blood Pressure 105/46 L Blood Pressure [Le ft Arm] 81/46 L Blood Pressure Gloria n 65 Blood Pressure Gloria n [Left Arm] 57 Pulse Oximetry 97 97 Oxygen Delivery Me thod Nasal Cannula Oxygen Flow Rate 2 Sepsis Recent Feve r Within 48 Hours Sepsis New/Unexpla ined Change in Men alexandra Status Sepsis Action Take n by Nursing 12/10/22 15:00 12/10/22 14:45 12/10/22 15:01 Temperature Temperature Source Pulse Rate 74 72 73 Pulse Rate [Apical ] Pulse Rate from Sp O2 Sensor 71 75 Pulse Rhythm Regular Respiratory Rate 20 24 21 Respiratory Effort / Characteristics Respiratory Depth Blood Pressure 82/46 L 96/42 L Blood Pressure [Le ft Arm] Blood Pressure Gloria n 58 60 Blood Pressure Gloria n [Left Arm] Pulse Oximetry 97 97 98 Oxygen Delivery Me thod Nasal Cannula Oxygen Flow Rate Sepsis Recent Feve r Within 48 Hours Sepsis New/Unexpla ined Change in Men alexandra Status Sepsis Action Take n by Nursing 12/10/22 15:15 12/10/22 15:36 Temperature Temperature Source Pulse Rate 75 77 Pulse Rate [Apical ] Pulse Rate from Sp O2 Sensor 75 77 Pulse Rhythm Respiratory Rate 21 24 Respiratory Effort / Characteristics Respiratory Depth Blood Pressure 94/45 L 121/59 L Blood Pressure [Le ft Arm] Blood Pressure Gloria n 61 79 Blood Pressure Gloria n [Left Arm] Pulse Oximetry 96 96 Oxygen Delivery Me thod Oxygen Flow Rate Sepsis Recent Feve r Within 48 Hours Sepsis New/Unexpla ined Change in Men alexandra Status Sepsis Action Take n by Nursing Physical Exam: Physical Exam CV: Normal rate, regular rhythm, normal heart sounds and intact distal pulses. T here is no peripheral edema. Palpable radial pulses bue. PULM/CHEST: Effort normal and breath sounds normal. No respiratory distress. No stridor. She has no wheezes. She has no rales. ABD: The abdomen is soft. There is no tenderness. There is no rebound, no guarding, Rectal: Performed with female nursing animal sitter Caroline at bedside. Hemorrhoids present with bleeding from the hemorrhoids. Mild hematochezia most likely from hemorrhoids on rectal exam. Course Course 1231: The patient was evaluated in room A12. A complete history and physical exam was performed Cardiac monitoring: An order was placed for continuous cardiac monitoring. The monitor shows a rate of 80 with sinus rhythm interpreted by me 1445: Patient becoming hypotensive. 1 L normal saline bolus ordered for the patient. 1500: Blood pressure improving with IV fluids. Labs show leukocytosis 16.9 hemoglobin 11.4 potassium 5.9 creatinine more than doubled at 1.51. Abdominal exam reveals no tenderness to palpation of the abdomen. [facility]. Administered Medications Sodium Chloride (Nss 1000ml) 1,000 mls @ 125 mls/hr IV .Q8H [facility] Stop: 01/09/23 14:29 Last Infusion: 12/10/22 16:37 Dose: 0 mls/hr Documented By: Admin: 12/10/22 14:30 Dose: 125 mls/hr Documented By: HS Discontinued Medications Ioversol (Optiray 350 100ml) 88 ml IV ONCE ONE Stop: 12/10/22 16:49 Last Admin: 12/10/22 16:51 Dose: 88 ml Documented By: NOAH Medical Decision Making Laboratory Data Attestation: I reviewed the patient's lab results. 12/10/22 13:03 12/10/22 13:03 Lab Results 12/10/22 12/10/22 12/10/22 Range/Units 12:46 13:03 13:03 WBC 16.99 H (4.8-10.8) K/ul RBC 3.54 L (4.20-5.40) M/uL Hgb 11.4 L (12.0-16.0) g/dl Hct 34.6 L (37.0-47.0) % MCV 97.7 (80.0-100.0) fL MCH 32.2 (25.0-34.0) pg MCHC 32.9 (32.0-36.0) g/dL RDW Std Deviation 52.8 H (36.4-46.3) fL RDW Coeff of Abby 14.8 H (11.5-14.5) % Plt Count 314 (130-400) K/uL MPV 9.1 L (9.4-12.4) fL Immature Gran % (Auto) 0.5 % Neut % (Auto) 75.7 % Lymph % (Auto) 14.8 % [place] % (Auto) 8.2 % Eos % (Auto) 0.6 % Baso % (Auto) 0.2 % Neut # (Auto) 12.85 H (1.40-6.50) K/uL Lymph # (Auto) 2.52 (1.2-3.4) K/uL [place] # (Auto) 1.40 H (0.11-0.59) K/uL Eos # (Auto) 0.11 (0-0.50) K/uL Baso # (Auto) 0.03 (0-0.2) K/uL Immature Gran # (Auto) 0.08 (0.01-0.20) K/uL PT (9.0-12.0) Seconds INR (0.9-1.1) APTT (21.0-31.0) Seconds PTT Ratio Sodium (136-145) mmol/L Potassium (3.5-5.1) mmol/L Chloride (98-107) mmol/L Carbon Dioxide (21-32) mmol/L Anion Gap (3-11) BUN (6-23) mg/dl Creatinine (0.6-1.2) mg/dl Est Cr Clr Drug Dosing Est GFR ( Amer) ml/min Est GFR (Non-Af Amer) ml/min BUN/Creatinine Ratio (10-20) Glucose (70-99(Fasting)) mg/dl Calcium (8.5-10.1) mg/dl Total Bilirubin (0.2-1.0) mg/dl Direct Bilirubin (0-0.2) mg/dl AST (13-39) U/L ALT (7-52) U/L Alkaline Phosphatase (34-104) U/L Total Protein (6.0-8.3) gm/dl Albumin (3.4-5.0) gm/dl Lipase (11-82) U/L Urine Color Dark Yellow Urine Appearance Cloudy A (Clear) Urine pH 5.0 (4.5-7.5) Ur Specific [place] 1.021 (1.000-1.030) Urine Protein Trace H (Negative) Urine Glucose (UA) Negative (Negative) Urine Ketones Trace H (Negative) Urine Blood Negative (Negative) Urine Nitrite Negative (Negative) Urine Bilirubin Negative (Negative) Urine Urobilinogen Negative (Negative) Ur Leukocyte Esterase 2+ H (Negative) Urine WBC (Auto) 1-5 (0-5) /hpf Urine RBC (Auto) 0-4 (0-4) /hpf U Hyaline Cast (Auto) 10-30 H (0-5) /lpf U Epithel Cells (Auto) >30 H (0-5) /lpf Urine Bacteria (Auto) Negative (Negative) Ur Renal Epithelial Cell Not Reportable SARS-CoV-2, RNA, NAAT (NEGATIVE) Blood Type O Positive Antibody Screen NEGATIVE 12/10/22 12/10/22 12/10/22 Range/Units 13:03 13:03 13:03 WBC (4.8-10.8) K/ul RBC (4.20-5.40) M/uL Hgb (12.0-16.0) g/dl Hct (37.0-47.0) % MCV (80.0-100.0) fL MCH (25.0-34.0) pg MCHC (32.0-36.0) g/dL RDW Std Deviation (36.4-46.3) fL RDW Coeff of Abby (11.5-14.5) % Plt Count (130-400) K/uL MPV (9.4-12.4) fL Immature Gran % (Auto) % Neut % (Auto) % Lymph % (Auto) % [place] % (Auto) % Eos % (Auto) % Baso % (Auto) % Neut # (Auto) (1.40-6.50) K/uL Lymph # (Auto) (1.2-3.4) K/uL [place] # (Auto) (0.11-0.59) K/uL Eos # (Auto) (0-0.50) K/uL Baso # (Auto) (0-0.2) K/uL Immature Gran # (Auto) (0.01-0.20) K/uL PT 11.2 (9.0-12.0) Seconds INR 1.1 (0.9-1.1) APTT 25.2 (21.0-31.0) Seconds PTT Ratio 0.9 Sodium 136 (136-145) mmol/L Potassium 5.9 H (3.5-5.1) mmol/L Chloride 105 (98-107) mmol/L Carbon Dioxide 25 (21-32) mmol/L Anion Gap 6 (3-11) BUN 24 H (6-23) mg/dl Creatinine 1.51 H (0.6-1.2) mg/dl Est Cr Clr Drug Dosing Not Reportable Est GFR ( Amer) 36.9 ml/min Est GFR (Non-Af Amer) 31.9 ml/min BUN/Creatinine Ratio 15.9 (10-20) Glucose 124 H (70-99(Fasting)) mg/dl Calcium 9.4 (8.5-10.1) mg/dl Total Bilirubin 0.5 (0.2-1.0) mg/dl Direct Bilirubin 0.0 (0-0.2) mg/dl AST 21 (13-39) U/L ALT 6 L (7-52) U/L Alkaline Phosphatase 98 (34-104) U/L Total Protein 7.6 (6.0-8.3) gm/dl Albumin 3.7 (3.4-5.0) gm/dl Lipase 15 (11-82) U/L Urine Color Urine Appearance (Clear) Urine pH (4.5-7.5) Ur Specific [place] (1.000-1.030) Urine Protein (Negative) Urine Glucose (UA) (Negative) Urine Ketones (Negative) Urine Blood (Negative) Urine Nitrite (Negative) Urine Bilirubin (Negative) Urine Urobilinogen (Negative) Ur Leukocyte Esterase (Negative) Urine WBC (Auto) (0-5) /hpf Urine RBC (Auto) (0-4) /hpf U Hyaline Cast (Auto) (0-5) /lpf U Epithel Cells (Auto) (0-5) /lpf Urine Bacteria (Auto) (Negative) Ur Renal Epithelial Cell SARS-CoV-2, RNA, NAAT (NEGATIVE) Blood Type Antibody Screen 12/10/22 Range/Units 14:26 WBC (4.8-10.8) K/ul RBC (4.20-5.40) M/uL Hgb (12.0-16.0) g/dl Hct (37.0-47.0) % MCV (80.0-100.0) fL MCH (25.0-34.0) pg MCHC (32.0-36.0) g/dL RDW Std Deviation (36.4-46.3) fL RDW Coeff of Abby (11.5-14.5) % Plt Count (130-400) K/uL MPV (9.4-12.4) fL Immature Gran % (Auto) % Neut % (Auto) % Lymph % (Auto) % [place] % (Auto) % Eos % (Auto) % Baso % (Auto) % Neut # (Auto) (1.40-6.50) K/uL Lymph # (Auto) (1.2-3.4) K/uL [place] # (Auto) (0.11-0.59) K/uL Eos # (Auto) (0-0.50) K/uL Baso # (Auto) (0-0.2) K/uL Immature Gran # (Auto) (0.01-0.20) K/uL PT (9.0-12.0) Seconds INR (0.9-1.1) APTT (21.0-31.0) Seconds PTT Ratio Sodium (136-145) mmol/L Potassium (3.5-5.1) mmol/L Chloride (98-107) mmol/L Carbon Dioxide (21-32) mmol/L Anion Gap (3-11) BUN (6-23) mg/dl Creatinine (0.6-1.2) mg/dl Est Cr Clr Drug Dosing Est GFR ( Amer) ml/min Est GFR (Non-Af Amer) ml/min BUN/Creatinine Ratio (10-20) Glucose (70-99(Fasting)) mg/dl Calcium (8.5-10.1) mg/dl Total Bilirubin (0.2-1.0) mg/dl Direct Bilirubin (0-0.2) mg/dl AST (13-39) U/L ALT (7-52) U/L Alkaline Phosphatase (34-104) U/L Total Protein (6.0-8.3) gm/dl Albumin (3.4-5.0) gm/dl Lipase (11-82) U/L Urine Color Urine Appearance (Clear) Urine pH (4.5-7.5) Ur Specific [place] (1.000-1.030) Urine Protein (Negative) Urine Glucose (UA) (Negative) Urine Ketones (Negative) Urine Blood (Negative) Urine Nitrite (Negative) Urine Bilirubin (Negative) Urine Urobilinogen (Negative) Ur Leukocyte Esterase (Negative) Urine WBC (Auto) (0-5) /hpf Urine RBC (Auto) (0-4) /hpf U Hyaline Cast (Auto) (0-5) /lpf U Epithel Cells (Auto) (0-5) /lpf Urine Bacteria (Auto) (Negative) Ur Renal Epithelial Cell SARS-CoV-2, RNA, NAAT NEGATIVE (NEGATIVE) Blood Type Antibody Screen Imaging Data Attestation: I personally reviewed and interpreted this imaging study as follows: Radiologist's Impression: Chest X-Ray 12/10/22 14:20 XR chest 1V portable HISTORY: 82 years-old Female cough acute cough COMPARISON: Chest CT 11/26/2021 TECHNIQUE: AP view of the chest FINDINGS: Emphysema with chronic fibrotic change. Linear scarring/atelectasis of the right midlung and left lung base. No pneumothorax, large pleural effusion or overt pulmonary edema. Cardiomegaly. Degenerative changes of the shoulders and spine. Suggested pulmonary tree all hypertension. IMPRESSION: 1. Cardiomegaly without acute process. 2. Emphysema. ACT 112: Negative or not required by law. The above report was generated using voice recognition software. It may contain grammatical, syntax or spelling errors. Electronically signed by: Aly Villegas M.D. 12/10/2022 3:46 PM Abdomen/Pelvis CT 12/10/22 15:[address] WITH IV CONTRAST CT DOSE: 468.79 mGy.cm HISTORY: Acute right lower quadrant abdominal pain RLQ pain, BRB in stool ?diverticulitits TECHNIQUE: Multiaxial CT images of the abdomen and pelvis were performed following the IV administration of 88 cc of Optiray, A dose lowering technique was utilized adhering to the principles of ALARA. COMPARISON STUDY: Chest CT 11/26/2021 FINDINGS: Study is limited secondary to upper extremity positioning and respiratory motion artifact. Mild cardiomegaly with extensive coronary artery calcifications. Pulmonary emphysema with mild bibasilar atelectasis. No pneumatosis or pneumoperitoneum identified. Unremarkable spleen, moderately atrophic pancreas and adrenal glands. Distended gallbladder with cholelithiasis. No biliary ductal dilation identified. Questioned mild hepatic steatosis. Patency of the portal vein. Unremarkable left kidney. Severe atrophy with cortical thinning and scarring of the right kidney. Unremarkable urinary bladder. Hysterectomy. Extensive atherosclerosis of the abdominal aorta with a least moderate mid aortic stenosis. High-grade stenosis of the right common iliac artery. Femorofemoral bypass graft appears to be occluded. A partially imaged left femoral bypass graft is also present. No lymphadenopathy. No bowel obstruction, pneumatosis or pneumoperitoneum. Colonic diverticulosis. There is wall thickening with mucosal hyperemia throughout the large bowel along with pericolonic inflammation. Scattered colonic air-fluid levels. No CT evidence of acute appendicitis. Degenerative changes of the spine, pelvis and hips. Nondisplaced left sacral insufficiency fracture, likely subacute. Healing subacute comminuted and mildly displaced fractures of the left superior and inferior pubic rami. Mid lumbar dextroscoliosis. 30% T12 compression deformity demonstrates no retropulsion and is new from prior. IMPRESSION: 1. Findings compatible with a nonspecific pancolitis. 2. No bowel obstruction or pneumoperitoneum. 3. Subacute appearing 30% T12 compression deformity without retropulsion, new from 11/26/2021. 4. Healing subacute left pelvic ring and left sacral insufficiency fractures. 5. Severe atrophy of the right kidney. 6. Cholelithiasis. 7. Additional findings as above. ACT 112: Negative or not required by law. The above report was generated using voice recognition software. It may contain grammatical, syntax or spelling errors. Electronically signed by: Aly Villegas M.D. 12/10/2022 5:13 PM ECG Data Attestation: I personally reviewed and interpreted this ECG as follows: Indication: abdominal pain Rate (beats per minute): 68 Rhythm: normal sinus Findings: no ST depression, no ST elevation or no prolonged QT MDM Narrative 1231: The patient was evaluated in room A12. A complete history and physical exam was performed Cardiac monitoring: An order was placed for continuous cardiac monitoring. The monitor shows a rate of 80 with sinus rhythm interpreted by me 1445: Patient becoming hypotensive. 1 L normal saline bolus ordered for the patient. 1500: Blood pressure improving with IV fluids. Labs show leukocytosis 16.9 hemoglobin 11.4 potassium 5.9 creatinine more than doubled at 1.51. Abdominal exam reveals no tenderness to palpation of the abdomen. [facility]. Impression & Plan GI bleed Discharge Plan Visit Data Chief Complaint: Rectal Bleed Stated Complaint: RECTAL BLEED ED Provider: Neel Kirkland Discharge Problem: GI bleed Patient Disposition: Admitted As Inpatient Discharge Instructions Interventions: ED Discharge Assessment Last Done: 12/10/22 18:05
[2022-12-10 13:16] LABS: Appearance Urine Cloudy (Clear); Bacteria Urine Automated Negative (Negative); Bilirubin Urine Negative (Negative); Blood Urine Negative (Negative); Color Urine Dark Yellow; Epithelial Cell Urine Auto >30 /lpf (0-5); Glucose Urine UA Negative (Negative); Ketones Urine Trace (Negative); Leukocyte Esterase Urine 2+ (Negative); Nitrite Urine Negative (Negative); Protein Urine Trace (Negative); RBC Urine Automated 0-4 /hpf (0-4); Specific Gravity Urine 1.021 (1.000-1.030); Urobilinogen Urine Negative (Negative)
[2022-12-10 13:54] LABS: Basophils # (auto) 0.03 K/uL (0-0.2); Basophils % (auto) 0.2 %; Eosinophils # (auto) 0.11 K/uL (0-0.50); Eosinophils % (auto) 0.6 %; Hematocrit (blood only) 34.6 % (37.0-47.0); Hemoglobin 11.4 g/dl (12.0-16.0); Immature Granulocytes # (auto) 0.08 K/uL (0.01-0.20); Immature Granulocytes % (auto) 0.5 %; Lymphocytes # (auto) 2.52 K/uL (1.2-3.4); Lymphocytes % (auto) 14.8 %; Mean Corpuscular Hemoglobin 32.2 pg (25.0-34.0); Mean Corpuscular Hgb Conc 32.9 g/dL (32.0-36.0); Mean Corpuscular Volume 97.7 fL (80.0-100.0); Mean Platelet Volume 9.1 fL (9.4-12.4); Monocytes % (auto) 8.2 %; Neutrophils # (auto) 12.85 K/uL (1.40-6.50); Neutrophils % (auto) 75.7 %; Platelet Count 314 K/uL (130-400); RDW Coefficient of Variation 14.8 % (11.5-14.5); RDW Standard Deviation 52.8 fL (36.4-46.3); Red Blood Count 3.54 M/uL (4.20-5.40); White Blood Count 16.99 K/ul (4.8-10.8)
[2022-12-10 14:00] LABS: Alanine Aminotransferase 6 U/L (7-52); Albumin Level 3.7 gm/dl (3.4-5.0); Alkaline Phosphatase 98 U/L (34-104); Anion Gap 6 (3-11); Aspartate Aminotransferase 21 U/L (13-39); BUN Creatinine Ratio 15.9 (10-20); Bilirubin,Total 0.5 mg/dl (0.2-1.0); Blood Urea Nitrogen 24 mg/dl (6-23); Calcium 9.4 mg/dl (8.5-10.1); Carbon Dioxide 25 mmol/L (21-32); Chloride 105 mmol/L (98-107); Est GFR (African American) 36.9 ml/min; Est GFR (Non-African American) 31.9 ml/min; Glucose 124 mg/dl (70-99(Fasting)); Potassium 5.9 mmol/L (3.5-5.1); Sodium 136 mmol/L (136-145); Total Protein 7.6 gm/dl (6.0-8.3)
[2022-12-10 14:12] LABS: INR 1.1 (0.9-1.1); Partial Thromboplastin Ratio 0.9; Partial Thromboplastin Time 25.2 Seconds (21.0-31.0); Prothrombin Time 11.2 Seconds (9.0-12.0)
[2022-12-10] MEDS: SODIUM CHLORIDE 0.9% 1000ML 1,000 ML IV SCH ×2 (14:30→20:36)
--- NOTE | 2022-12-10 14:49 | Electrocardiogram Report ---
Test Reason : Blood Pressure : / mmHG Vent. Rate : 068 BPM Atrial Rate : 068 BPM P-R Int : 160 ms QRS Dur : 072 ms QT Int : 428 ms P-R-T Axes : 051 046 048 degrees QTc Int : 455 ms Normal sinus rhythm Poor R wave progression, consider anterior OR vs. lead placement vs. LVH Abnormal ECG When compared with ECG of 22-JUL-2020 20:48, Premature atrial complexes are no longer Present Confirmed by Michael Wood ([id number]) on 12/10/2022 2:48:55 PM Referred By: Confirmed By:Michael Wood
--- NOTE | 2022-12-10 15:18 | History & Physical Report ---
Date of Service December 10, 2022 Assessment & Plan (1) GI bleed: Plan: Suspected lower GI bleed with bright red blood noted and history of hemorrhoids -exam not repeated but hemorrhoids noted by ER physician. Stop antiplatelets Anusol 1 suppository NC twice daily Continue to monitor H&H CT A/P due to abdominal pain on exam Stool PCR and c. diff testing due to some concern for diarrhea although not from patient currently (2) Hyperkalemia: Plan: Suspect due to supplementation in the setting of ANDREA. Stop supplementation. We will repeat later on this evening after IV hydration to see if she requires additional treatment for this. (3) Hypothyroidism: Plan: TSH with a.m. labs Continue levothyroxine 88 mcg p.o. daily (4) HTN (hypertension): Plan: Stop lisinopril due to ANDREA. She appears dehydrated on exam and wants to stop Lasix with gentle IV hydration. (5) Depression: Plan: Continue her usual phenelzine -daughter will bring this in (6) COPD (chronic obstructive pulmonary disease): Plan: Continue Trelegy Ellipta or hospital formulary equivalent (7) Chronic respiratory failure with hypoxia: Plan: Baseline 2 L/min O2. Continue to keep oxygen saturation between 88 to 92%. Plan VTE prophylaxis - chemical prophylaxis contraindicated due to acute GI bleed Diet - regular Disposition - admit to [facility] telemetry Admission and Anticipated Discharge Date Admission Date: December 10, 2022 History of Present Illness Chief Complaint: Bright red blood in stool Primary Care Provider: Adilia Barillas at [place] Shahnaz Mantilla is an 82-year-old female with dementia who presents to the ER from [facility] with bright red blood in stool. This morning her carers noted her briefs were full of blood and on having a bowel movement there was further bright red blood in stool. She has a history of hemorrhoids. Unable to get an accurate history from the patient due to history of dementia. She reports no current shortness of breath, chest pain or dizziness. Possible nausea yesterday, no abdominal pain. Last antibiotic use 7 days amoxicillin October 29. Lives at [facility]. when going to the bathroom this morning brief was full of blood and blood in bowel. BP low and patient pale. Concern it was more than hemorrhoids. Allergies Allergy/AdvReac Type Severity Reaction Status Date / Time bee venom protein (honey bee) Allergy Unknown Unknown Verified 12/10/22 15:33 codeine Allergy Unknown Unknown Verified 12/10/22 15:33 levofloxacin [From Levaquin] Allergy Unknown Unknown Verified 12/10/22 15:33 meperidine [From Demerol] Allergy Unknown Unknown Verified 12/10/22 15:33 morphine Allergy Unknown Unknown Verified 12/10/22 15:33 Home Medications Medication Instructions Recorded Confirmed Type alendronate 70 mg tablet 70 mg PO WK 07/13/19 12/10/22 History aspirin 81 mg tablet,delayed 81 mg PO DAILY 07/13/19 12/10/22 History release clopidogrel 75 mg tablet 75 mg PO DAILY 07/13/19 12/10/22 History furosemide 20 mg tablet 20 mg PO QAM 07/13/19 12/10/22 History levothyroxine 88 mcg capsule 88 mcg PO DAILY 07/13/19 12/10/22 History lisinopril 5 mg tablet 5 mg PO DAILY 07/13/19 12/10/22 History multivitamin (Daily-Karla tablet) 1 tab PO DAILY 07/13/19 12/10/22 History potassium chloride 20 mEq 20 meq PO BID 07/13/19 12/10/22 History tablet,extended release calcium carbonate 600 mg-vitamin 1 tab PO DAILY 08/31/19 12/10/22 History D3 10 mcg (400 unit) tablet (Calcium 600 + D(3)) hydrocortisone 1 % topical cream 1 appln topical Q12H PRN 12/07/19 12/10/22 History (Preparation H Hydrocortisone) hemorrhoids phenelzine 15 mg tablet See Rx Instructions .Route .COMPLEX 07/22/20 12/10/22 History psyllium husk 0.4 gram capsule 0.4 g PO QAM 07/22/20 12/10/22 History (Metamucil) Flutter Valve #1 ea 04/12/22 04/12/22 Rx ipratropium 0.5 mg-albuterol 3 mg 3 ml inhalation Q8H PRN shortness 04/12/22 12/10/22 Rx (2.5 mg base)/3 mL nebulization of breath or wheezing #180 mL soln Portable Oxygen #1 ea 06/07/22 Rx albuterol sulfate 90 mcg/actuation 2 puff inhalation Q6H PRN 11/27/22 12/10/22 Rx aerosol inhaler Shortness Of Breath Or Wheezing #18 grams Lactobacillus rhamnosus GG 10 1 cap PO DAILY 12/10/22 12/10/22 History billion cell capsule (Culturelle) acetaminophen 650 mg 650 mg PO Q6H PRN Pain 12/10/22 12/10/22 History tablet,extended release (Tylenol 8 Hour) acetaminophen 650 mg 650 mg PO TID 12/10/22 12/10/22 History tablet,extended release (Tylenol 8 Hour) albuterol sulfate 2.5 mg/3 mL 2.5 mg inhalation Q4H PRN 12/10/22 12/10/22 History (0.083 %) solution for nebulization Shortness Of Breath aripiprazole 2 mg tablet (Abilify) 1 mg PO DAILY 12/10/22 12/10/22 History docusate sodium 100 mg tablet 100 mg PO DAILY 12/10/22 12/10/22 History fluticasone fur. 100 mcg-umeclid 1 inh inhalation DAILY 12/10/22 12/10/22 History 62.5 mcg-vilant 25 mcg inhalat.powder (Trelegy Ellipta) gabapentin 100 mg capsule 100 mg PO HS 12/10/22 12/10/22 History melatonin 1 mg tablet 2 mg PO HS 12/10/22 12/10/22 History menthol 4 % topical gel (Biofreeze 1 applic topical Q4H PRN Back Pain 12/10/22 12/10/22 History (menthol)) metoprolol tartrate 50 mg tablet 75 mg PO BID 12/10/22 12/10/22 History Past Med/Surg History Medical History (Updated 12/10/22 @ 21:19 by Uli Feldman MD) CAD (coronary artery disease) Chronic diastolic CHF (congestive heart failure) Coronary artery sclerosis Depression HLD (hyperlipidemia) HTN (hypertension) Hypothyroidism Ischemic heart disease Osteoporosis TIA (transient ischemic attack) Vascular dementia Surgical History H/O heart artery stent S/P appendectomy S/P hysterectomy Status post left knee replacement Family History Mother , age 64 from a motor vehicle accident. No problems noted. Father , age 87 Dementia Heart disease Osteoarthritis Social History Smoking Status: Former smoker packs per day: 0.5; Second Hand Exposure: No; Do You Dip or Chew Tobacco: No; Tobacco Cessation Education Requested by Patient: Yes Hx Alcohol Use: No Hx Substance Use: No Preferred Language: Turkmen Communication Ability: Effective Freelance Designer Required: No Beliefs That Will Affect Care: None marital status: / Current Living Situation: Personal Care Facility Current Living Situation Comment: [facility] current occupational status: retired How many Children do You have: 2 other: Retired age 70 working at [employer] [place], in various jobs. Feels Safe at Home: Yes Assistive Devices: Denture - Upper, Denture - Lower, Glasses, Walker and Wheelchair Review of Systems Review of Systems: All systems reviewed & are unremarkable except as noted in Subjective Physical Exam Constitutional: WD/WN, vitals as above Eyes: PERRL, conjunctivae normal, anicteric sclerae Respiratory: normal respiratory effort, lungs clear to auscultation Cardiovascular: RRR, no murmur, no edema Gastrointestinal (Abdomen): Inspection/Auscultation: abdomen not distended and + abnormal bowel sounds Percussion/Palpation: + abdomen tender (suprapubic and LLQ) and abdomen soft; no guarding and abdomen not rigid Musculoskeletal: no cyanosis or clubbing, extremities motor strength 5/5 Skin: no rashes, warm and dry Neurologic: moves all extremities and awake; not confused Psychiatric: A+Ox3, euthymic affect Results & Data Results & Data ([facility]) Vital Signs (Past 12 Hours) Vital Signs Temp Pulse Pulse Resp BP BP Pulse Ox 12/10/22 15:00 74 20 97 12/10/22 14:45 71 24 81/46 L 97 12/10/22 14:13 105/46 L 12/10/22 14:13 69 22 97 12/10/22 14:01 68 23 96 12/10/22 14:00 68 23 97 12/10/22 13:30 71 21 96 12/10/22 13:00 69 19 95 12/10/22 12:33 67 21 96 12/10/22 12:33 110/60 12/10/22 12:31 68 22 96 12/10/22 13:17 69 12/10/22 12:30 36.8 C 68 20 110/60 94 O2 Del Method O2 Flow Rate 12/10/22 15:00 Nasal Cannula 12/10/22 14:45 Nasal Cannula 2 12/10/22 14:13 12/10/22 14:13 12/10/22 14:01 12/10/22 14:00 12/10/22 13:30 12/10/22 13:00 12/10/22 12:33 12/10/22 12:33 12/10/22 12:31 12/10/22 13:17 12/10/22 12:30 Nasal Cannula 2 Laboratory Results Abnormal lab results 12/10/22 12/10/22 12/10/22 Range/Units 12:46 13:03 13:03 WBC 16.99 H (4.8-10.8) K/ul RBC 3.54 L (4.20-5.40) M/uL Hgb 11.4 L (12.0-16.0) g/dl Hct 34.6 L (37.0-47.0) % RDW Std Deviation 52.8 H (36.4-46.3) fL RDW Coeff of Abby 14.8 H (11.5-14.5) % MPV 9.1 L (9.4-12.4) fL Neut # (Auto) 12.85 H (1.40-6.50) K/uL [place] # (Auto) 1.40 H (0.11-0.59) K/uL Potassium 5.9 H (3.5-5.1) mmol/L BUN 24 H (6-23) mg/dl Creatinine 1.51 H (0.6-1.2) mg/dl Glucose 124 H (70-99(Fasting)) mg/dl ALT 6 L (7-52) U/L Urine Appearance Cloudy A (Clear) Urine Protein Trace H (Negative) Urine Ketones Trace H (Negative) Ur Leukocyte Esterase 2+ H (Negative) U Hyaline Cast (Auto) 10-30 H (0-5) /lpf U Epithel Cells (Auto) >30 H (0-5) /lpf Diagnostic Findings XR chest 1V portable HISTORY: 82 years-old Female cough acute cough COMPARISON: Chest CT 11/26/2021 TECHNIQUE: AP view of the chest FINDINGS: Emphysema with chronic fibrotic change. Linear scarring/atelectasis of the right midlung and left lung base. No pneumothorax, large pleural effusion or overt pulmonary edema. Cardiomegaly. Degenerative changes of the shoulders and spine. Suggested pulmonary tree all hypertension. IMPRESSION: 1. Cardiomegaly without acute process. 2. Emphysema. Medications Administered ER medications given: Normal saline 125 mL/h ECG Rate (beats per minute): 68 Rhythm: normal sinus Findings: no acute ischemic change Comparison ECG Date: from (July 22, 2020) Change: the following changes noted (PACs noted present) Code Status & VTE Plan Code Status DNR/DNI VTE Prophylaxis Plan VTE Prophylaxis will be ordered: No Reason for no VTE drug order: Contraindicated PG Care Time/CCT Total # of Minutes Spent Total Time Spent with Patient: Total time spent is greater than 50% in coordination of care (as documented) at patient's floor/unit and/or counseling patient: Coding Level of Care Code 43615 INT INP/OBS CARE 2/55MIN Diagnoses GI bleed K92.2 GI bleed type/associated pathology: unspecified gastrointestinal hemorrhage type Hyperkalemia E87.5 Hypothyroidism E03.9 HTN (hypertension) I10 Depression F32.9 COPD (chronic obstructive pulmonary disease) J44.9 Chronic respiratory failure with hypoxia J96.11 (1) GI bleed GI bleed type/associated pathology: unspecified gastrointestinal hemorrhage type Qualified Code(s): K92.2 - Gastrointestinal hemorrhage, unspecified
--- NOTE | 2022-12-10 15:48 | XRay Report ---
XR chest 1V portable HISTORY: 82 years-old Female cough acute cough COMPARISON: Chest CT 11/26/2021 TECHNIQUE: AP view of the chest FINDINGS: Emphysema with chronic fibrotic change. Linear scarring/atelectasis of the right midlung and left marci g base. No pneumothorax, large pleural effusion or overt pulmonary edema. Cardiomegaly. Degenerative changes of the shoulders and spine. Suggested pulmonary tree all hypertension. IMPRESSION: 1. Cardiomegaly without acute process. 2. Emphysema. ACT 112: Negative or not required by law. The above report was generated using voice recognition software. It may contain grammatical, syntax o r spelling errors. Electronically signed by: Aly Villegas M.D. 12/10/2022 3:46 PM
[2022-12-10] MEDS ORDERED: OPTIRAY 350 100ml IV ONE (16:48)
--- NOTE | 2022-12-10 17:14 | CT Scan Report ---
ABDOMEN AND PELVIS CT WITH IV CONTRAST CT DOSE: 468.79 mGy.cm HISTORY: Acute right lower quadrant abdominal pain RLQ pain, BRB in stool ?diverticulitits TECHNIQUE: Multiaxial CT images of the abdomen and pelvis were performed following the IV administrat ion of 88 cc of Optiray, A dose lowering technique was utilized adhering to the principles of ALARA. COMPARISON STUDY: Chest CT 11/26/2021 FINDINGS: Study is limited secondary to upper extremity positioning and respiratory motion artifact. Mild cardiomegaly with extensive coronary artery calcifications. Pulmonary emphysema with mild bibasi lar atelectasis. No pneumatosis or pneumoperitoneum identified. Unremarkable spleen, moderately atrophic pancreas and adrenal glands. Distended gallbladder with chol elithiasis. No biliary ductal dilation identified. Questioned mild hepatic steatosis. Patency of the portal vein. Unremarkable left kidney. Severe atrophy with cortical thinning and scarring of the right kidney. Unr emarkable urinary bladder. Hysterectomy. Extensive atherosclerosis of the abdominal aorta with a leas t moderate mid aortic stenosis. High-grade stenosis of the right common iliac artery. Femorofemoral b ypass graft appears to be occluded. A partially imaged left femoral bypass graft is also present. No lymphadenopathy. No bowel obstruction, pneumatosis or pneumoperitoneum. Colonic diverticulosis. There is wall thickeni ng with mucosal hyperemia throughout the large bowel along with pericolonic inflammation. Scattered c olonic air-fluid levels. No CT evidence of acute appendicitis. Degenerative changes of the spine, pel vis and hips. Nondisplaced left sacral insufficiency fracture, likely subacute. Healing subacute comm inuted and mildly displaced fractures of the left superior and inferior pubic rami. Mid lumbar dextro scoliosis. 30% T12 compression deformity demonstrates no retropulsion and is new from prior. IMPRESSION: 1. Findings compatible with a nonspecific pancolitis. 2. No bowel obstruction or pneumoperitoneum. 3. Subacute appearing 30% T12 compression deformity without retropulsion, new from 11/26/2021. 4. Healing subacute left pelvic ring and left sacral insufficiency fractures. 5. Severe atrophy of the right kidney. 6. Cholelithiasis. 7. Additional findings as above. ACT 112: Negative or not required by law. The above report was generated using voice recognition software. It may contain grammatical, syntax o r spelling errors. Electronically signed by: Aly Villegas M.D. 12/10/2022 5:13 PM
[2022-12-10] MEDS ORDERED: ACETAMINOPHEN 325 MG TAB PO PRN (19:17)
[2022-12-10] MEDS: ANUSOL SUPP 1 EA PR SCH (20:36)
[2022-12-10] MEDS: ACETAMINOPHEN 325 MG TAB PO SCH (22:28)
[2022-12-10] MEDS: GABAPENTIN 100 MG CAP PO SCH (22:29)
[2022-12-10] MEDS: METOPROLOL TARTRATE 25 MG TAB PO SCH (22:29)
[2022-12-10] MEDS: MELATONIN 3 MG TAB PO SCH (22:31)
[2022-12-10 22:42] LABS: Hematocrit (blood only) 29.9 % (37.0-47.0); Hemoglobin 9.3 g/dl (12.0-16.0); Mean Corpuscular Hgb Conc 31.1 g/dL (32.0-36.0); Mean Corpuscular Volume 102.7 fL (80.0-100.0); Mean Platelet Volume 8.9 fL (9.4-12.4); Platelet Count 226 K/uL (130-400); RDW Standard Deviation 56.2 fL (36.4-46.3); Red Blood Count 2.91 M/uL (4.20-5.40); White Blood Count 13.44 K/ul (4.8-10.8)
[2022-12-10 22:55] LABS: Anion Gap 5 (3-11); BUN Creatinine Ratio 18.3 (10-20); Blood Urea Nitrogen 20 mg/dl (6-23); Calcium 8.6 mg/dl (8.5-10.1); Carbon Dioxide 26 mmol/L (21-32); Chloride 107 mmol/L (98-107); Est GFR (African American) 54.7 ml/min; Est GFR (Non-African American) 47.2 ml/min; Glucose 146 mg/dl (70-99(Fasting)); Potassium 4.6 mmol/L (3.5-5.1); Sodium 138 mmol/L (136-145)
[2022-12-11] MEDS: SODIUM CHLORIDE 0.9% 1000ML 1,000 ML IV SCH ×2 (04:18→14:12)
[2022-12-11] MEDS: LEVOTHYROXINE SODIUM 88 MCG TABLET PO SCH (05:23)
[2022-12-11] MEDS: FLUTICASONE FUROATE 100MCG 14 PUFFS/INHALER INH SCH (08:11)
[2022-12-11] MEDS: UMECLIDINIUM/VILANTEROL 62.5/25MCG 7 PUFFS/INHALER INH SCH (08:11)
[2022-12-11] MEDS: ARIPIprazole 1 MG/ML ORAL SOLN 150 ML BTL PO SCH (08:12)
[2022-12-11] MEDS: METOPROLOL TARTRATE 25 MG TAB PO SCH (08:13)
[2022-12-11 08:41] LABS: Basophils # (auto) 0.03 K/uL (0-0.2); Basophils % (auto) 0.3 %; Eosinophils # (auto) 0.47 K/uL (0-0.50); Hematocrit (blood only) 30.3 % (37.0-47.0); Hemoglobin 9.3 g/dl (12.0-16.0); Immature Granulocytes # (auto) 0.04 K/uL (0.01-0.20); Immature Granulocytes % (auto) 0.3 %; Lymphocytes # (auto) 2.85 K/uL (1.2-3.4); Lymphocytes % (auto) 24.5 %; Mean Corpuscular Hemoglobin 31.6 pg (25.0-34.0); Mean Corpuscular Hgb Conc 30.7 g/dL (32.0-36.0); Mean Corpuscular Volume 103.1 fL (80.0-100.0); Mean Platelet Volume 8.8 fL (9.4-12.4); Monocytes # (auto) 0.93 K/uL (0.11-0.59); Neutrophils # (auto) 7.31 K/uL (1.40-6.50); Neutrophils % (auto) 62.9 %; Platelet Count 212 K/uL (130-400); RDW Standard Deviation 56.4 fL (36.4-46.3); Red Blood Count 2.94 M/uL (4.20-5.40); White Blood Count 11.63 K/ul (4.8-10.8)
[2022-12-11] MEDS ORDERED: SODIUM CHLORIDE 0.9% 1000ML 500 ML IV ONE (08:51)
[2022-12-11 09:09] LABS: Albumin Level 3.2 gm/dl (3.4-5.0); BUN Creatinine Ratio 19.5 (10-20); Bilirubin,Total 0.5 mg/dl (0.2-1.0); Calcium 8.8 mg/dl (8.5-10.1); Creatinine Clr Calc Pharmacy 43.6 ml/min; Est GFR (African American) 71.9 ml/min; Globulin 3.3 gm/dl (2.5-4.0); Potassium 4.5 mmol/L (3.5-5.1); Total Protein 6.5 gm/dl (6.0-8.3)
[2022-12-11] MEDS: ANUSOL SUPP 1 EA PR SCH ×3 (09:18→21:10)
[2022-12-11] MEDS: ACETAMINOPHEN 325 MG TAB PO SCH ×3 (09:18→20:54)
[2022-12-11] MEDS: PHENELZINE SULFATE 15 MG PO SCH ×3 (09:28→20:57)
[2022-12-11] MEDS ORDERED: ALBUT/IPRATROP 3MG/0.5MG NEB 3 ML VIAL NEB PRN (10:20)
[2022-12-11] MEDS: ALBUT/IPRATROP 3MG/0.5MG NEB 3 ML VIAL NEB SCH ×3 (11:41→18:58)
--- NOTE | 2022-12-11 14:01 | Hospitalist Progress Note ---
Date of Service December 11, 2022 Assessment & Plan (1) Pancolitis: Plan: diff dx - infectious vs inflammatory vs ischemic. favor infectious given her elevated WBC, etc. has prior h/o c diff and given SNF residence she is at risk of such. will presumptively Rx for c diff - start vancomycin 125mg QID while awaiting c diff testing. doubt ischemic given that the colitis is the entire colon and there is no pain or peritoneal signs. lactate also wnl. doubt inflammatory. supportive care including IV fluids. downgrade diet to full liquids. await c diff testing. (2) Acute blood loss anemia: Plan: 2nd to #1 +/- hemorrhoids +/- other colonic factors. H/H seem to be leveling off and overt rectal bleeding has stopped. recheck CBC in am. supportive care, IV fluids, etc. (3) GI bleed: Plan: By report hemorrhoids noted by ER physician. Stopped asa/plavix Cont Anusol 1 suppository RI twice daily Continue to monitor H&H see #2 above (4) Hyperkalemia: Plan: 2nd to ANDREA with K supplementation. latter stopped. former resolved. K now normal. BMP am. (5) Hypothyroidism: Plan: TSH 1.7 today Continue levothyroxine 88 mcg p.o. daily (6) HTN (hypertension): Plan: Stopped lisinopril due to ANDREA. Stop lasix. Hold metoprolol. Had to give NS bolus this am due to relative hypotension. Cont generous IV fluids. (7) Depression: Plan: Continue her usual phenelzine - daughter brought in (8) COPD (chronic obstructive pulmonary disease): Plan: Continue Trelegy Ellipta or hospital formulary equivalent Stable on NC O2 no flare duonebs (9) Chronic respiratory failure with hypoxia: Plan: Baseline 2 L/min O2 keep oxygen saturation between 88 to 92% Cont inhalers Added duonebs QID for cough/wheeze (10) Dementia: Plan: appears advanced Plan VTE prophylaxis - chemical prophylaxis contraindicated due to acute GI bleed daughter updated at bedside needs PT/OT Admission and Anticipated Discharge Date Admission Date: December 10, 2022 Subjective pt confused during the visit unable to give a whole lot of information was able to tell me she is NOT having abdominal pain and that appetite is poor daughter at bedside daughter mentions her mother has had c diff in the past no further rectal bleeding per nursing staff pt states she does have some mild rectal discomfort tele overnight wnl Review of Systems Review of Systems: Unobtainable due to cognitive status Physical Exam Physical Exam: gen - pleasantly confused, NAD mouth - MM dry neck - no JVD heart - RRR, s1 s2 lungs - minimal end-exp wheeze; bronchial cough present; no distress abd - minimal distension, BS+, NT; SYLVIA deferred ext - no edema, pulses 2+ b/l psych - oriented to person only Results & Data Results & Data ([facility]) Vital Signs (Past 12 Hours) Vital Signs Temp Pulse Pulse Resp BP Pulse Ox O2 Del Method 12/11/22 11:41 71 18 97 Nasal Cannula 12/11/22 11:38 36.8 C 69 16 103/52 L 96 Nasal Cannula 12/11/22 10:18 Nasal Cannula 12/11/22 07:31 36.4 C L 66 20 91/47 L 98 Room Air 12/11/22 05:59 67 12/11/22 03:41 77 12/11/22 03:31 36.7 C 67 20 83/42 L 98 Nasal Cannula O2 Flow Rate 12/11/22 11:41 2 12/11/22 11:38 12/11/22 10:18 3 12/11/22 07:31 12/11/22 05:59 12/11/22 03:41 12/11/22 03:31 3 Laboratory Results Laboratory Results - last 24 hr 12/10/22 12/10/22 12/10/22 13:03 13:03 13:03 WBC RBC Hgb Hct MCV MCH MCHC RDW Std Deviation RDW Coeff of Abby Plt Count MPV Immature Gran % (Auto) Neut % (Auto) Lymph % (Auto) [place] % (Auto) Eos % (Auto) Baso % (Auto) Neut # (Auto) Lymph # (Auto) [place] # (Auto) Eos # (Auto) Baso # (Auto) Immature Gran # (Auto) PT 11.2 INR 1.1 APTT 25.2 PTT Ratio 0.9 Sodium 136 Potassium 5.9 H Chloride 105 Carbon Dioxide 25 Anion Gap 6 BUN 24 H Creatinine 1.51 H Est Cr Clr Drug Dosing Not Reportable Est GFR ( Amer) 36.9 Est GFR (Non-Af Amer) 31.9 BUN/Creatinine Ratio 15.9 Glucose 124 H Lactate Calcium 9.4 Total Bilirubin 0.5 Direct Bilirubin 0.0 AST 21 ALT 6 L Alkaline Phosphatase 98 Total Protein 7.6 Albumin 3.7 Globulin Albumin/Globulin Ratio TSH SARS-CoV-2, RNA, NAAT Blood Type O Positive Antibody Screen NEGATIVE 12/10/22 12/10/22 12/10/22 14:26 16:14 21:42 WBC 13.44 H RBC 2.91 L Hgb 9.3 L Hct 29.9 L MCV 102.7 H D MCH 32.0 MCHC 31.1 L RDW Std Deviation 56.2 H RDW Coeff of Abby 15.0 H Plt Count 226 MPV 8.9 L Immature Gran % (Auto) Neut % (Auto) Lymph % (Auto) [place] % (Auto) Eos % (Auto) Baso % (Auto) Neut # (Auto) Lymph # (Auto) [place] # (Auto) Eos # (Auto) Baso # (Auto) Immature Gran # (Auto) PT INR APTT PTT Ratio Sodium Potassium Chloride Carbon Dioxide Anion Gap BUN Creatinine Est Cr Clr Drug Dosing Est GFR ( Amer) Est GFR (Non-Af Amer) BUN/Creatinine Ratio Glucose Lactate 1.3 Calcium Total Bilirubin Direct Bilirubin AST ALT Alkaline Phosphatase Total Protein Albumin Globulin Albumin/Globulin Ratio TSH SARS-CoV-2, RNA, NAAT NEGATIVE Blood Type Antibody Screen 12/10/22 12/11/22 12/11/22 21:42 08:07 08:07 WBC 11.63 H RBC 2.94 L Hgb 9.3 L Hct 30.3 L MCV 103.1 H MCH 31.6 MCHC 30.7 L RDW Std Deviation 56.4 H RDW Coeff of Abby 15.0 H Plt Count 212 MPV 8.8 L Immature Gran % (Auto) 0.3 Neut % (Auto) 62.9 Lymph % (Auto) 24.5 [place] % (Auto) 8.0 Eos % (Auto) 4.0 Baso % (Auto) 0.3 Neut # (Auto) 7.31 H Lymph # (Auto) 2.85 [place] # (Auto) 0.93 H Eos # (Auto) 0.47 Baso # (Auto) 0.03 Immature Gran # (Auto) 0.04 PT INR APTT PTT Ratio Sodium 138 138 Potassium 4.6 D 4.5 Chloride 107 108 H Carbon Dioxide 26 26 Anion Gap 5 4 BUN 20 17 Creatinine 1.09 D 0.87 Est Cr Clr Drug Dosing Not Reportable 43.6 Est GFR ( Amer) 54.7 71.9 Est GFR (Non-Af Amer) 47.2 62.0 BUN/Creatinine Ratio 18.3 19.5 Glucose 146 H 83 Lactate Calcium 8.6 8.8 Total Bilirubin 0.5 Direct Bilirubin AST 26 ALT 6 L Alkaline Phosphatase 81 Total Protein 6.5 Albumin 3.2 L Globulin 3.3 Albumin/Globulin Ratio 1.0 TSH SARS-CoV-2, RNA, NAAT Blood Type Antibody Screen 12/11/22 08:07 WBC RBC Hgb Hct MCV MCH MCHC RDW Std Deviation RDW Coeff of Abby Plt Count MPV Immature Gran % (Auto) Neut % (Auto) Lymph % (Auto) [place] % (Auto) Eos % (Auto) Baso % (Auto) Neut # (Auto) Lymph # (Auto) [place] # (Auto) Eos # (Auto) Baso # (Auto) Immature Gran # (Auto) PT INR APTT PTT Ratio Sodium Potassium Chloride Carbon Dioxide Anion Gap BUN Creatinine Est Cr Clr Drug Dosing Est GFR ( Amer) Est GFR (Non-Af Amer) BUN/Creatinine Ratio Glucose Lactate Calcium Total Bilirubin Direct Bilirubin AST ALT Alkaline Phosphatase Total Protein Albumin Globulin Albumin/Globulin Ratio TSH 1.700 SARS-CoV-2, RNA, NAAT Blood Type Antibody Screen PG Care Time/CCT Total # of Minutes Spent Total Time Spent with Patient: Total time spent is greater than 50% in coordination of care (as documented) at patient's floor/unit and/or counseling patient: Coding Level of Care Code 38126 SUB INP/OBS CARE 3/50MIN Diagnoses Pancolitis K51.00 Acute blood loss anemia D62 GI bleed K92.2 GI bleed type/associated pathology: unspecified gastrointestinal hemorrhage type Hyperkalemia E87.5 Hypothyroidism E03.9 HTN (hypertension) I10 Depression F32.9 COPD (chronic obstructive pulmonary disease) J44.9 Chronic respiratory failure with hypoxia J96.11 Dementia F03.90 (3) GI bleed GI bleed type/associated pathology: unspecified gastrointestinal hemorrhage type Qualified Code(s): K92.2 - Gastrointestinal hemorrhage, unspecified
[2022-12-11] MEDS: NYSTATIN POWDER 15GM BTL EXT SCH ×2 (15:31→20:56)
[2022-12-11 15:50] LABS: Hematocrit (blood only) 27.9 % (37.0-47.0); Hemoglobin 8.5 g/dl (12.0-16.0); Mean Corpuscular Hemoglobin 31.1 pg (25.0-34.0); Mean Corpuscular Hgb Conc 30.5 g/dL (32.0-36.0); Mean Corpuscular Volume 102.2 fL (80.0-100.0); Mean Platelet Volume 8.9 fL (9.4-12.4); Platelet Count 197 K/uL (130-400); RDW Coefficient of Variation 14.8 % (11.5-14.5); RDW Standard Deviation 54.7 fL (36.4-46.3); Red Blood Count 2.73 M/uL (4.20-5.40); White Blood Count 11.23 K/ul (4.8-10.8)
[2022-12-11 16:07] LABS: Vitamin B12 364 pg/ml (180-914)
[2022-12-11] MEDS: MELATONIN 3 MG TAB PO SCH (20:55)
[2022-12-11] MEDS: GABAPENTIN 100 MG CAP PO SCH (20:56)
[2022-12-11] MEDS: VANCOMYCIN HCL 125 MG/2.5ML SOLN PO SCH (21:10)
[2022-12-11] MEDS: RASPBERRY SYRUP 5 ML UDP PO SCH (21:10)
[2022-12-12] MEDS: SODIUM CHLORIDE 0.9% 1000ML 1,000 ML IV SCH ×2 (00:04→11:46)
[2022-12-12] MEDS: LEVOTHYROXINE SODIUM 88 MCG TABLET PO SCH (05:40)
[2022-12-12] MEDS: ALBUT/IPRATROP 3MG/0.5MG NEB 3 ML VIAL NEB SCH ×5 (06:52→20:11)
[2022-12-12 07:28] LABS: Basophils # (auto) 0.02 K/uL (0-0.2); Basophils % (auto) 0.3 %; Eosinophils # (auto) 0.36 K/uL (0-0.50); Eosinophils % (auto) 5.5 %; Hematocrit (blood only) 27.2 % (37.0-47.0); Hemoglobin 8.6 g/dl (12.0-16.0); Immature Granulocytes # (auto) 0.03 K/uL (0.01-0.20); Immature Granulocytes % (auto) 0.5 %; Lymphocytes # (auto) 1.95 K/uL (1.2-3.4); Mean Corpuscular Hemoglobin 31.7 pg (25.0-34.0); Mean Corpuscular Hgb Conc 31.6 g/dL (32.0-36.0); Mean Corpuscular Volume 100.4 fL (80.0-100.0); Mean Platelet Volume 9.2 fL (9.4-12.4); Monocytes # (auto) 0.52 K/uL (0.11-0.59); Neutrophils # (auto) 3.61 K/uL (1.40-6.50); Neutrophils % (auto) 55.7 %; Platelet Count 195 K/uL (130-400); RDW Coefficient of Variation 14.9 % (11.5-14.5); RDW Standard Deviation 54.9 fL (36.4-46.3); Red Blood Count 2.71 M/uL (4.20-5.40); White Blood Count 6.49 K/ul (4.8-10.8)
[2022-12-12 08:13] LABS: BUN Creatinine Ratio 12.7 (10-20); Calcium 8.5 mg/dl (8.5-10.1); Creatinine Clr Calc Pharmacy 53.6 ml/min; Est GFR (African American) 91.9 ml/min; Est GFR (Non-African American) 79.3 ml/min; Magnesium 1.8 mg/dl (1.7-2.4); Potassium 4.3 mmol/L (3.5-5.1)
[2022-12-12] MEDS: ACETAMINOPHEN 325 MG TAB PO SCH ×3 (09:16→20:51)
[2022-12-12] MEDS: ANUSOL SUPP 1 EA PR SCH ×2 (09:17→20:51)
[2022-12-12] MEDS: PHENELZINE SULFATE 15 MG PO SCH ×3 (09:18→20:50)
[2022-12-12] MEDS: NYSTATIN POWDER 15GM BTL EXT SCH ×4 (09:19→20:59)
[2022-12-12] MEDS: ARIPIprazole 1 MG/ML ORAL SOLN 150 ML BTL PO SCH (09:20)
[2022-12-12] MEDS: FLUTICASONE FUROATE 100MCG 14 PUFFS/INHALER INH SCH (09:20)
[2022-12-12] MEDS: RASPBERRY SYRUP 5 ML UDP PO SCH ×4 (09:34→20:49)
[2022-12-12] MEDS: UMECLIDINIUM/VILANTEROL 62.5/25MCG 7 PUFFS/INHALER INH SCH (09:34)
[2022-12-12] MEDS: VANCOMYCIN HCL 125 MG/2.5ML SOLN PO SCH ×4 (09:42→20:49)
--- NOTE | 2022-12-12 19:47 | Hospitalist Progress Note ---
Date of Service December 12, 2022 Assessment & Plan (1) Pancolitis: Plan: diff dx - infectious vs inflammatory vs ischemic. favor infectious given her elevated WBC, etc. has prior h/o c diff and given SNF residence she is at risk of such. will presumptively Rx for c diff - start vancomycin 125mg QID -- while awaiting c diff testing. if c diff is ultimately negative then stop vanco; would need additional w/u with stool biofire. doubt ischemic given that the colitis is the entire colon and there is no pain or peritoneal signs. lactate also wnl. doubt inflammatory although there is a bimodal peak with UC with elderly in their 70s/80s (but usually the onset is gradual - this was very acute). cont supportive care including IV fluids. cont full liquids. await c diff testing. check sed rate/crp am. (2) Acute blood loss anemia: Plan: 2nd to #1 +/- hemorrhoids +/- other colonic factors. H/H stable and rectal bleeding has stopped. recheck CBC in am. supportive care, IV fluids, etc. (3) GI bleed: Plan: By report hemorrhoids noted by ER physician. Stopped asa/plavix Cont Anusol 1 suppository [place] twice daily Continue to monitor H&H see #2 above bleeding could have been from the pancolitis itself as well, or another etiology, or a combo of factors (4) Hyperkalemia: Plan: 2nd to ANDREA with K supplementation. resolved. (5) Hypothyroidism: Plan: TSH 1.7 Continue levothyroxine 88 mcg p.o. daily (6) HTN (hypertension): Plan: Stopped lisinopril due to ANDREA. Stopped lasix. Holding metoprolol. Cont IV fluids but lower rate to 50cc/hr (7) Depression: Plan: Continue her usual phenelzine (8) COPD (chronic obstructive pulmonary disease): Plan: Continue Trelegy Ellipta or hospital formulary equivalent Stable on NC O2 no flare duonebs (9) Chronic respiratory failure with hypoxia: Plan: Baseline 2 L/min O2 keep oxygen saturation between 88 to 92% Cont inhalers Cont duonebs QID for cough/wheeze (10) Dementia: Plan: appears advanced Plan VTE prophylaxis - chemical prophylaxis contraindicated due to acute GI bleed daughter updated by phone this evening PT/OT when able Admission and Anticipated Discharge Date Admission Date: December 10, 2022 Subjective pt sleeping much of the day today during my visit she woke up easily, answered my questions, was cooperative no blood per rectum no vomiting no diarrhea taking sips of fluids only per staff; no appetite tele overnight wnl Review of Systems Review of Systems: gen - fatigue, anorexia cv - denies cp pulm - coughing; denies feeling short of breath GI - denies pain or nausea ; no vomiting by report Physical Exam Physical Exam: gen - pleasantly confused, NAD; looks sickly but nontoxic mouth - MM a little more moist today neck - no JVD heart - RRR, s1 s2, no murmur lungs - no wheezes; bronchial cough present as previous; no distress abd - soft, BS+, NT; ND; no HSM ext - no edema, pulses 2+ b/l psych - oriented to person only Results & Data Results & Data ([facility]) Vital Signs (Past 12 Hours) Vital Signs Temp Pulse Pulse Resp BP Pulse Ox O2 Del Method 12/12/22 16:34 75 12/12/22 15:56 36.7 C 77 16 138/67 93 Nasal Cannula 12/12/22 09:15 Nasal Cannula 12/12/22 11:52 36.5 C 88 18 146/69 H 95 Room Air O2 Flow Rate 12/12/22 16:34 12/12/22 15:56 2 12/12/22 09:15 2 12/12/22 11:52 Laboratory Results Laboratory Results - last 24 hr 12/12/22 12/12/22 12/12/22 05:44 06:41 06:41 WBC 6.49 RBC 2.71 L Hgb 8.6 L Hct 27.2 L MCV 100.4 H MCH 31.7 MCHC 31.6 L RDW Std Deviation 54.9 H RDW Coeff of Abby 14.9 H Plt Count 195 MPV 9.2 L Immature Gran % (Auto) 0.5 Neut % (Auto) 55.7 Lymph % (Auto) 30.0 [place] % (Auto) 8.0 Eos % (Auto) 5.5 Baso % (Auto) 0.3 Neut # (Auto) 3.61 Lymph # (Auto) 1.95 [place] # (Auto) 0.52 Eos # (Auto) 0.36 Baso # (Auto) 0.02 Immature Gran # (Auto) 0.03 Sodium 141 Potassium 4.3 Chloride 113 H Carbon Dioxide 24 Anion Gap 4 BUN 9 Creatinine 0.71 Est Cr Clr Drug Dosing 53.6 Est GFR ( Amer) 91.9 Est GFR (Non-Af Amer) 79.3 BUN/Creatinine Ratio 12.7 Glucose 85 Calcium 8.5 Magnesium 1.8 Nasal Screen MRSA (PCR) Positive A PG Care Time/CCT Total # of Minutes Spent Total Time Spent with Patient: Total time spent is greater than 50% in coordination of care (as documented) at patient's floor/unit and/or counseling patient: Coding Level of Care Code 89461 SUB INP/OBS CARE 2/35MIN Diagnoses Pancolitis K51.00 Acute blood loss anemia D62 GI bleed K92.2 GI bleed type/associated pathology: unspecified gastrointestinal hemorrhage type Hyperkalemia E87.5 Hypothyroidism E03.9 HTN (hypertension) I10 Depression F32.9 COPD (chronic obstructive pulmonary disease) J44.9 Chronic respiratory failure with hypoxia J96.11 Dementia F03.90 (3) GI bleed GI bleed type/associated pathology: unspecified gastrointestinal hemorrhage type Qualified Code(s): K92.2 - Gastrointestinal hemorrhage, unspecified
[2022-12-12] MEDS: MELATONIN 3 MG TAB PO SCH ×2 (20:52→20:59)
[2022-12-12] MEDS: GABAPENTIN 100 MG CAP PO SCH (20:52)
[2022-12-13] MEDS: LEVOTHYROXINE SODIUM 88 MCG TABLET PO SCH (06:15)
[2022-12-13] MEDS: ALBUT/IPRATROP 3MG/0.5MG NEB 3 ML VIAL NEB SCH ×2 (07:11→11:18)
[2022-12-13 08:10] LABS: Basophils # (auto) 0.04 K/uL (0-0.2); Basophils % (auto) 0.3 %; Eosinophils # (auto) 0.47 K/uL (0-0.50); Eosinophils % (auto) 3.9 %; Hematocrit (blood only) 31.8 % (37.0-47.0); Hemoglobin 10.2 g/dl (12.0-16.0); Immature Granulocytes # (auto) 0.07 K/uL (0.01-0.20); Immature Granulocytes % (auto) 0.6 %; Lymphocytes # (auto) 2.29 K/uL (1.2-3.4); Lymphocytes % (auto) 18.9 %; Mean Corpuscular Hemoglobin 31.7 pg (25.0-34.0); Mean Corpuscular Hgb Conc 32.1 g/dL (32.0-36.0); Mean Corpuscular Volume 98.8 fL (80.0-100.0); Mean Platelet Volume 8.8 fL (9.4-12.4); Monocytes # (auto) 0.87 K/uL (0.11-0.59); Monocytes % (auto) 7.2 %; Neutrophils # (auto) 8.35 K/uL (1.40-6.50); Neutrophils % (auto) 69.1 %; Platelet Count 249 K/uL (130-400); RDW Coefficient of Variation 14.5 % (11.5-14.5); RDW Standard Deviation 52.1 fL (36.4-46.3); Red Blood Count 3.22 M/uL (4.20-5.40); White Blood Count 12.09 K/ul (4.8-10.8)
[2022-12-13 08:18] LABS: BUN Creatinine Ratio 8.1 (10-20); C Reactive Protein 8.11 mg/dl (0-0.5); Calcium 8.7 mg/dl (8.5-10.1); Creatinine Clr Calc Pharmacy 61.3 ml/min; Est GFR (African American) 97.3 ml/min; Potassium 4.1 mmol/L (3.5-5.1)
[2022-12-13] MEDS: FLUTICASONE FUROATE 100MCG 14 PUFFS/INHALER INH SCH (09:04)
[2022-12-13] MEDS: SODIUM CHLORIDE 0.9% 1000ML 1,000 ML IV SCH (09:04)
[2022-12-13] MEDS: PHENELZINE SULFATE 15 MG PO SCH ×3 (09:05→21:01)
[2022-12-13] MEDS: UMECLIDINIUM/VILANTEROL 62.5/25MCG 7 PUFFS/INHALER INH SCH (09:05)
[2022-12-13] MEDS: NYSTATIN POWDER 15GM BTL EXT SCH ×3 (09:05→21:03)
[2022-12-13] MEDS: ARIPIprazole 1 MG/ML ORAL SOLN 150 ML BTL PO SCH (09:06)
[2022-12-13] MEDS: ANUSOL SUPP 1 EA PR SCH ×2 (09:06→20:51)
[2022-12-13] MEDS: VANCOMYCIN HCL 125 MG/2.5ML SOLN PO SCH ×4 (09:07→21:00)
[2022-12-13] MEDS: ACETAMINOPHEN 325 MG TAB PO SCH ×3 (09:07→21:03)
[2022-12-13] MEDS: RASPBERRY SYRUP 5 ML UDP PO SCH ×4 (09:07→21:00)
[2022-12-13] MEDS ORDERED: OPTIRAY 350 100ml IV ONE (18:15)
--- NOTE | 2022-12-13 18:20 | XRay Report ---
XR chest 1V portable HISTORY: 82 years-old Female leukocytosis, cough; eval for pneumonia COMPARISON: Chest radiograph 12/10/2022 TECHNIQUE: AP view of the chest. FINDINGS: Cardiac silhouette is enlarged. Pulmonary vascular congestion with interstitial coarsening. Small ple ural effusions with mild bibasilar densities. No pneumothorax. Degenerative changes of the shoulders and spine. Right perihilar linear scarring versus atelectasis again noted. IMPRESSION: 1. Cardiomegaly with interval development of mild pulmonary edema. 2. Small pleural effusions with mild bibasilar consolidation. ACT 112: Negative or not required by law. The above report was generated using voice recognition software. It may contain grammatical, syntax o r spelling errors. Electronically signed by: Aly Villegas M.D. 12/13/2022 6:19 PM
--- NOTE | 2022-12-13 18:41 | CT Scan Report ---
ABDOMEN AND PELVIS CT WITH IV CONTRAST CT DOSE: 621.27 mGy.cm HISTORY: Acute generalized abdominal pain patient with history of recent colitis recent colitis, gal lstones, ongoing anorexia TECHNIQUE: Multiaxial CT images of the abdomen and pelvis were performed following the IV administrat ion of 90 cc of Optiray, A dose lowering technique was utilized adhering to the principles of ALARA. COMPARISON STUDY: Chest radiograph of same day, CT 12/10/2022 FINDINGS: Study is limited secondary to upper extremity positioning and respiratory motion artifact. Mild cardiomegaly with extensive coronary artery calcifications. Pulmonary emphysema. Layering small to moderate pleural effusions with progressive dependent bibasilar consolidation. Mild intralobular s eptal thickening of the imaged lungs. No pneumatosis or pneumoperitoneum identified. Unremarkable spleen, moderately atrophic pancreas and adrenal glands. Cholelithiasis without CT evide nce of acute cholecystitis. No biliary ductal dilation identified. Questioned mild hepatic steatosis. Patency of the portal vein. Unremarkable left kidney. Severe atrophy with cortical thinning and scar ring of the right kidney. Nonspecific urinary bladder wall thickening. Trace free pelvic fluid. Hyste rectomy. Extensive atherosclerosis of the abdominal aorta with at least moderate mid aortic stenosis. High-grade stenosis of the right common iliac artery. Femorofemoral bypass graft appears to be occlu ded. A partially imaged left femoral bypass graft is also present. No lymphadenopathy. No bowel obstruction, pneumatosis or pneumoperitoneum. Colonic diverticulosis. There is decreased wal l thickening with mucosal hyperemia throughout the large bowel along with improved pericolonic inflam mation. Scattered colonic air-fluid levels. No CT evidence of acute appendicitis. Degenerative change s of the spine, pelvis and hips. Nondisplaced left sacral insufficiency fracture, likely subacute. He aling subacute comminuted and mildly displaced fractures of the left superior and inferior pubic rami . Mid lumbar dextroscoliosis. 30% T12 compression deformity demonstrates no retropulsion is unchanged . IMPRESSION: 1. Near complete resolution of the previously described colitis. 2. No bowel obstruction or pneumoperitoneum. 3. Subacute appearing 30% T12 compression deformity without retropulsion is unchanged from the 023 study, however is new from 11/26/2021. 4. Healing subacute left pelvic ring and left sacral insufficiency fractures. 5. Severe atrophy of the right kidney. 6. Cholelithiasis. 7. Cardiomegaly with pulmonary edema, small to moderate layering pleural effusions with progressive b ibasilar atelectasis. ACT 112: Negative or not required by law. The above report was generated using voice recognition software. It may contain grammatical, syntax o r spelling errors. Electronically signed by: Aly Vilelgas M.D. 12/13/2022 6:38 PM
--- NOTE | 2022-12-13 20:37 | Hospitalist Progress Note ---
Date of Service December 13, 2022 Assessment & Plan (1) Elevated erythrocyte sedimentation rate: Plan: Patient was admitted with working dx of colitis. Despite radiographic evidence of such she had no diarrhea, abd pain or bloody stools following admission. Although she has been stable she has had no oral intake / severe anorexia over the last 48 hours. Sed rate and crp quite high today. WBC count had normalized, now 12 again today. Source of ongoing failure to thrive & anorexia is uncertain; the elevated ESR/CRP/WBC count are all concerning. I elected to repeat her CT a/p today to recheck her colitis - very oddly it is nearly resolved (see #2 below). She has gallstones but continues to not have CT evidence of cholecystitis. Cause of elevated inflammatory markers/wbc count uncertain. CXR today without pulm edema but no discrete pneumonia. Plan to repeat a CRP along with procal & cbc in am. Blood cx's from admission negative. Re-eval tomorrow. (2) Pancolitis: Plan: Present on admission CT. diff dx - infectious vs inflammatory vs ischemic. favored infectious colitis given her elevated WBC, etc. However, following admission, NEVER had any diarrhea or recurrent bloody stools. Further, on CT today, her colitis is nearly resolved. Very odd for pancolitis to disappear that quickly on CT scan. etiology very uncertain. I have been treating her empirically for c.diff colitis as she has had such in the past. Awaiting a cdiff test to fully rule it out. doubt ischemia given that the colitis was the entire colon and there was no abd pain or peritoneal signs. lactate also wnl. doubt inflammatory - colitis radiographically improved w/o steroids. cont supportive care. since colitis is resolved allow regular diet. await c diff testing. recheck CRP/procal in am. (3) Acute blood loss anemia: Plan: 2nd to #1 +/- hemorrhoids +/- other colonic factors. H/H again remain stable and rectal bleeding has stopped. recheck CBC in am. supportive care. (4) GI bleed: Plan: By report hemorrhoids noted by ER physician. Stopped asa/plavix Cont Anusol 1 suppository [place] twice daily Continue to monitor H&H bleeding could have been from the pancolitis itself as well, or another etiology, or a combo of factors (5) Hyperkalemia: Plan: 2nd to ANDREA with K supplementation. resolved. (6) Hypothyroidism: Plan: TSH 1.7 Continue levothyroxine 88 mcg p.o. daily (7) HTN (hypertension): Plan: Stopped lisinopril due to ANDREA. Stopped lasix although cxr today suggests she has beginnings of volume overload - likely resume lasix 12/14/22 Holding metoprolol - BPs controlled w/o it (8) Depression: Plan: Continue her usual phenelzine (9) COPD (chronic obstructive pulmonary disease): Plan: Continue Trelegy Ellipta or hospital formulary equivalent Stable on [place] O2 no flare duonebs cxr today - volume overload with effusions; despite such no change in respiratory status resume lasix in am tomorrow (10) Chronic respiratory failure with hypoxia: Plan: Baseline 2 L/min O2 keep oxygen saturation between 88 to 92% Cont inhalers Cont duonebs QID for cough/wheeze (11) Dementia: Plan: appears advanced daughter mentions probable superimposed delirium supportive care Plan VTE prophylaxis - chemical prophylaxis contraindicated due to acute GI bleed daughter updated by phone again this evening I discussed w her the anorexia, high wbcs, high esr/crp, etc if pt continues to do poorly consider RUQ u/s - r/o smoldering gall bladder process PT/OT when able Admission and Anticipated Discharge Date Admission Date: December 10, 2022 Subjective tele overnight wnl per staff her poor po intake continues - eating/drinking little, if anything (bites/sips listed on nursing flowsheets for meals) during my assessment patient was lying in bed comfortably no agitation said hello, but could not tell me where she was or why she was here denied ANY abd pain, chest pain, dyspnea, nausea by report NO rectal bleeding and NO stools Review of Systems Review of Systems: Unobtainable due to cognitive status Physical Exam Physical Exam: gen - pleasantly confused like previous; harsh bronchial cough present but no distress; looks tired mouth - MMM neck - no JVD heart - RRR, s1 s2, no murmur lungs - no wheezes; bronchial cough present as previous; no distress; no rales abd - soft, BS+, NT; ND; no HSM; no peritoneal signs ext - no edema, pulses 2+ b/l psych - oriented to person only Results & Data Results & Data ([facility]) Vital Signs (Past 12 Hours) Vital Signs Temp Pulse Pulse Resp BP BP Pulse Ox 12/13/22 19:30 37.1 C 79 20 112/68 94 12/13/22 18:44 95 H 12/13/22 16:25 37.2 C 89 20 115/69 93 12/13/22 11:39 37.3 C 90 20 129/73 93 O2 Del Method O2 Flow Rate 12/13/22 19:30 Nasal Cannula 3 12/13/22 18:44 12/13/22 16:25 Nasal Cannula 3 12/13/22 11:39 Nasal Cannula 4 Laboratory Results Laboratory Results - last 24 hr 12/13/22 12/13/22 12/13/22 07:34 07:34 07:34 WBC 12.09 H RBC 3.22 L Hgb 10.2 L Hct 31.8 L MCV 98.8 MCH 31.7 MCHC 32.1 RDW Std Deviation 52.1 H RDW Coeff of Abby 14.5 Plt Count 249 MPV 8.8 L Immature Gran % (Auto) 0.6 Neut % (Auto) 69.1 Lymph % (Auto) 18.9 [place] % (Auto) 7.2 Eos % (Auto) 3.9 Baso % (Auto) 0.3 Neut # (Auto) 8.35 H Lymph # (Auto) 2.29 [place] # (Auto) 0.87 H Eos # (Auto) 0.47 Baso # (Auto) 0.04 Immature Gran # (Auto) 0.07 ESR 87 H Sodium 138 Potassium 4.1 Chloride 110 H Carbon Dioxide 22 Anion Gap 6 BUN 5 L Creatinine 0.62 Est Cr Clr Drug Dosing 61.3 Est GFR ( Amer) 97.3 Est GFR (Non-Af Amer) 84.0 BUN/Creatinine Ratio 8.1 L Glucose 102 H Calcium 8.7 C-Reactive Protein 8.11 H Diagnostic Findings Abdomen/Pelvis CT 12/13/22 17:[address] WITH IV CONTRAST CT DOSE: 621.27 mGy.cm HISTORY: Acute generalized abdominal pain patient with history of recent colitis recent colitis, gallstones, ongoing anorexia TECHNIQUE: Multiaxial CT images of the abdomen and pelvis were performed following the IV administration of 90 cc of Optiray, A dose lowering technique was utilized adhering to the principles of ALARA. COMPARISON STUDY: Chest radiograph of same day, CT 12/10/2022 FINDINGS: Study is limited secondary to upper extremity positioning and respiratory motion artifact. Mild cardiomegaly with extensive coronary artery calcifications. Pulmonary emphysema. Layering small to moderate pleural effusio ns with progressive dependent bibasilar consolidation. Mild intralobular septal thickening of the imaged lungs. No pneumatosis or pneumoperitoneum identified. Unremarkable spleen, moderately atrophic pancreas and adrenal glands. Cholelithiasis without CT evidence of acute cholecystitis. No biliary ductal dilation identified. Questioned mild hepatic steatosis. Patency of the portal vein. Unremarkable left kidney. Severe atrophy with cortical thinning and scarring of the right kidney. Nonspecific urinary bladder wall thickening. Trace free pelvic fluid. Hysterectomy. Extensive atherosclerosis of the abdominal aorta with at least moderate mid aortic stenosis. High-grade stenosis of the right common iliac artery. Femorofemoral bypass graft appears to be occluded. A partially imaged left femoral bypass graft is also present. No lymphadenopathy. No bowel obstruction, pneumatosis or pneumoperitoneum. Colonic diverticulosis. There is decreased wall thickening with mucosal hyperemia throughout the large bowel along with improved pericolonic inflammation. Scattered colonic air-fluid levels. No CT evidence of acute appendicitis. Degenerative changes of the spine, pelvis and hips. Nondisplaced left sacral insufficiency fracture, likely subacute. Healing subacute comminuted and mildly displaced fractures of the left superior and inferior pubic rami. Mid lumbar dextroscoliosis. 30% T12 compression deformity demonstrates no retropulsion is unchanged. IMPRESSION: 1. Near complete resolution of the previously described colitis. 2. No bowel obstruction or pneumoperitoneum. 3. Subacute appearing 30% T12 compression deformity without retropulsion is unchanged from the 12/10/2022 study, however is new from 11/26/2021. 4. Healing subacute left pelvic ring and left sacral insufficiency fractures. 5. Severe atrophy of the right kidney. 6. Cholelithiasis. 7. Cardiomegaly with pulmonary edema, small to moderate layering pleural effusions with progressive bibasilar atelectasis. ACT 112: Negative or not required by law. The above report was generated using voice recognition software. It may contain grammatical, syntax or spelling errors. Electronically signed by: Aly Villegas M.D. 12/13/2022 6:38 PM Chest X-Ray 12/13/22 17:14 XR chest 1V portable HISTORY: 82 years-old Female leukocytosis, cough; eval for pneumonia COMPARISON: Chest radiograph 12/10/2022 TECHNIQUE: AP view of the chest. FINDINGS: Cardiac silhouette is enlarged. Pulmonary vascular congestion with interstitial coarsening. Small pleural effusions with mild bibasilar densities. No pneumothorax. Degenerative changes of the shoulders and spine. Right perihilar linear scarring versus atelectasis again noted. IMPRESSION: 1. Cardiomegaly with interval development of mild pulmonary edema. 2. Small pleural effusions with mild bibasilar consolidation. ACT 112: Negative or not required by law. The above report was generated using voice recognition software. It may contain grammatical, syntax or spelling errors. Electronically signed by: Aly Villegas M.D. 12/13/2022 6:19 PM PG Care Time/CCT Total # of Minutes Spent Total Time Spent with Patient: Total time spent is greater than 50% in coordination of care (as documented) at patient's floor/unit and/or counseling patient: Coding Level of Care Code 55376 SUB INP/OBS CARE 2/35MIN Diagnoses Elevated erythrocyte sedimentation rate R70.0 Pancolitis K51.00 Acute blood loss anemia D62 GI bleed K92.2 GI bleed type/associated pathology: unspecified gastrointestinal hemorrhage type Hyperkalemia E87.5 Hypothyroidism E03.9 HTN (hypertension) I10 Depression F32.9 COPD (chronic obstructive pulmonary disease) J44.9 Chronic respiratory failure with hypoxia J96.11 Dementia F03.90 (4) GI bleed GI bleed type/associated pathology: unspecified gastrointestinal hemorrhage type Qualified Code(s): K92.2 - Gastrointestinal hemorrhage, unspecified
[2022-12-13] MEDS: GABAPENTIN 100 MG CAP PO SCH (21:02)
[2022-12-13] MEDS: MELATONIN 3 MG TAB PO SCH (21:03)
[2022-12-14] MEDS: LEVOTHYROXINE SODIUM 88 MCG TABLET PO SCH (06:21)
[2022-12-14 08:49] LABS: Basophils # (auto) 0.03 K/uL (0-0.2); Basophils % (auto) 0.3 %; Eosinophils # (auto) 0.52 K/uL (0-0.50); Eosinophils % (auto) 5.8 %; Immature Granulocytes # (auto) 0.04 K/uL (0.01-0.20); Immature Granulocytes % (auto) 0.4 %; Lymphocytes # (auto) 1.83 K/uL (1.2-3.4); Lymphocytes % (auto) 20.3 %; Mean Corpuscular Hemoglobin 31.7 pg (25.0-34.0); Mean Corpuscular Hgb Conc 32.3 g/dL (32.0-36.0); Mean Corpuscular Volume 98.4 fL (80.0-100.0); Mean Platelet Volume 8.6 fL (9.4-12.4); Monocytes # (auto) 0.85 K/uL (0.11-0.59); Monocytes % (auto) 9.4 %; Neutrophils # (auto) 5.75 K/uL (1.40-6.50); Neutrophils % (auto) 63.8 %; Platelet Count 221 K/uL (130-400); RDW Coefficient of Variation 14.6 % (11.5-14.5); RDW Standard Deviation 52.3 fL (36.4-46.3); Red Blood Count 3.15 M/uL (4.20-5.40); White Blood Count 9.02 K/ul (4.8-10.8)
[2022-12-14] MEDS: UMECLIDINIUM/VILANTEROL 62.5/25MCG 7 PUFFS/INHALER INH SCH (09:09)
[2022-12-14] MEDS: FLUTICASONE FUROATE 100MCG 14 PUFFS/INHALER INH SCH (09:09)
[2022-12-14] MEDS: ARIPIprazole 1 MG/ML ORAL SOLN 150 ML BTL PO SCH (09:09)
[2022-12-14] MEDS: RASPBERRY SYRUP 5 ML UDP PO SCH ×4 (09:09→22:25)
[2022-12-14] MEDS: ANUSOL SUPP 1 EA PR SCH ×3 (09:10→22:41)
[2022-12-14] MEDS: PHENELZINE SULFATE 15 MG PO SCH ×3 (09:10→22:24)
[2022-12-14] MEDS: NYSTATIN POWDER 15GM BTL EXT SCH ×3 (09:10→19:54)
[2022-12-14] MEDS: VANCOMYCIN HCL 125 MG/2.5ML SOLN PO SCH ×4 (09:13→22:24)
[2022-12-14] MEDS: ACETAMINOPHEN 325 MG TAB PO SCH ×3 (09:13→22:23)
[2022-12-14] MEDS ORDERED: FUROSEMIDE INJ 20 MG/2 ML VIAL IV STA (09:41)
[2022-12-14] MEDS ORDERED: METOPROLOL TARTRATE 50 MG TAB PO STA (09:42)
[2022-12-14 10:06] LABS: Albumin Level 3.1 gm/dl (3.4-5.0); BUN Creatinine Ratio 7.7 (10-20); Bilirubin,Total 0.5 mg/dl (0.2-1.0); C Reactive Protein 14.54 mg/dl (0-0.5); Calcium 8.7 mg/dl (8.5-10.1); Creatinine Clr Calc Pharmacy 58.5 ml/min; Est GFR (African American) 95.8 ml/min; Est GFR (Non-African American) 82.7 ml/min; Potassium 3.9 mmol/L (3.5-5.1); Total Protein 6.6 gm/dl (6.0-8.3)
[2022-12-14] MEDS ORDERED: ASPIRIN 81 MG ECTAB PO STA (10:19)
[2022-12-14] MEDS ORDERED: ASPIRIN 81 MG CHEW ONE (10:26)
--- NOTE | 2022-12-14 10:43 | XRay Report ---
XR chest 1V portable CLINICAL HISTORY: resp distress TECHNIQUE: Single frontal radiograph of the chest was obtained. Comparison: Comparison is made to chest radiograph 12/13/2022 FINDINGS: No lines and tubes are seen. Cardiomegaly is noted. The aortic arch is calcified. Bilateral atelectas is is seen. No evidence of pulmonary edema. Small bilateral pleural effusions are seen. IMPRESSION: Small bilateral pleural effusions with bilateral atelectasis. Stable cardiomegaly. ACT 112: Negative or not required by law. Electronically signed by: Mann Chavez M.D. 12/14/2022 10:42 AM
--- NOTE | 2022-12-14 13:06 | Electrocardiogram Report ---
Test Reason : Blood Pressure : / mmHG Vent. Rate : 151 BPM Atrial Rate : 147 BPM P-R Int : 000 ms QRS Dur : 092 ms QT Int : 332 ms P-R-T Axes : 000 050 040 degrees QTc Int : 526 ms Supraventricular tachycardia (possibly atrtial flutter) Poor R wave progression, consider anterior MD vs. lead placement vs. LVH Abnormal ECG When compared with ECG of 10-DEC-2022 12:23, Vent. rate has increased BY 83 BPM Supraventricular tachycardia now present Confirmed by Jose Shepherd ([id number]) on 12/14/2022 1:06:00 PM Referred By: REFERRED SELF Confirmed By:Jose Shepherd
--- NOTE | 2022-12-14 13:06 | Electrocardiogram Report ---
Test Reason : Blood Pressure : / mmHG Vent. Rate : 097 BPM Atrial Rate : 097 BPM P-R Int : 158 ms QRS Dur : 070 ms QT Int : 384 ms P-R-T Axes : 069 048 031 degrees QTc Int : 487 ms Sinus rhythm with Premature atrial complexes Anterior infarct (cited on or before 14-DEC-2022) Abnormal ECG When compared with ECG of 14-DEC-2022 09:44, Vent. rate has decreased BY 54 BPM Supraventricular tachycardia no longer present Confirmed by Jose Shepherd ([id number]) on 12/14/2022 1:06:48 PM Referred By: REFERRED SELF Confirmed By:Jose Shepherd
--- NOTE | 2022-12-14 13:15 | XCELERA ---
[id number]
[2022-12-14 16:14] LABS: Appearance Urine Cloudy (Clear); Bacteria Urine Automated 1+ (Negative); Bilirubin Urine Negative (Negative); Blood Urine 3+ (Negative); Color Urine Dark Yellow; Glucose Urine UA Negative (Negative); Ketones Urine Negative (Negative); Leukocyte Esterase Urine 2+ (Negative); Nitrite Urine Negative (Negative); Protein Urine 1+ (Negative); Specific Gravity Urine 1.042 (1.000-1.030); Urobilinogen Urine Negative (Negative); WBC Urine Automated >30 /hpf (0-5); pH Urine 5.5 (4.5-7.5)
--- NOTE | 2022-12-14 17:13 | Hospitalist Progress Note ---
Date of Service December 14, 2022 Assessment & Plan (1) SVT (supraventricular tachycardia): Plan: SVT vs possible a.flutter 2:1 - suspect former as SVT broke with coughing (vagal maneuver). During the SVT I suspect she was having chest pain although she could not descri be her symptoms. She does have a positive troponin - likely demand ischemia from the SVT itself, but I cannot rule out 100% a small NSTEMI event given her pain. [id number] her SVT is resolved and has not recurred today. Echo obtained - preserved EF with normal wall-motion. beta hakeem resumed. continue telemetry. electrolytes wnl. (2) Elevated troponin: Plan: either demand ischemia from #1 or small NSTEMI. hard to say which. either way her pain is resolved, SVT has not recurred. asa resumed. defer on heparin infusion for now since troponin already peaked and is coming down. beta hakeem resumed. resume plavix tomorrow if no GI bleeding. (3) Elevated erythrocyte sedimentation rate: Plan: Patient was admitted with working dx of colitis. Despite radiographic evidence of such she had no diarrhea, abd pain or bloody stools following admission. Although she has been stable she has had no oral intake / severe anorexia over the last 48 hours. Sed rate and crp high this admission, and CRP even higher today. Source of ongoing failure to thrive & anorexia is uncertain; the elevated ESR/CRP/WBC count are all concerning. I elected to repeat a CT a/p to recheck her colitis - very oddly it is nearly resolved. She has gallstones but continues to not have CT evidence of cholecystitis. Cause of elevated inflammatory markers/wbc count uncertain. CXR today again w/o definitive pneumonia. U/a obtained after bran insertion -- u/a suspicious for UTI - culture sent, rocephin started. Check RUQ u/s - r/o brewing cholecystitis. Blood cx's from admission negative. Re-eval tomorrow. (4) Pancolitis: Plan: Present on admission CT. diff dx - infectious vs inflammatory vs ischemic. favored infectious colitis given her elevated WBC, etc. However, following admission, NEVER has had any diarrhea or recurrent bloody stools. Further, on repeat CT, her colitis is nearly resolved. Very odd for pancolitis to disappear that quickly on CT scan. etiology very uncertain. I have been treating her empirically for c.diff colitis as she has had such in the past. Awaiting a cdiff test to fully rule it out. However, again - NO STOOLS SINCE ADMISSION. doubt ischemia given that the colitis was the entire colon and there was no abd pain or peritoneal signs. lactate also wnl. doubt inflammatory - colitis radiographically improved w/o steroids. cont supportive care. since colitis is resolved allow regular diet. await c diff testing. (5) Acute blood loss anemia: Plan: 2nd to #1 +/- hemorrhoids +/- other colonic factors. H/H again remain stable and rectal bleeding has stopped. recheck CBC in am. supportive care. (6) GI bleed: Plan: By report hemorrhoids noted by ER physician. Stopped asa/plavix initially - since no further bleeding and given #1, #2 -- resume asa 81mg daily and then plavix tomorrow if stable Cont Anusol 1 suppository [place] twice daily Continue to monitor H&H bleeding could have been from the pancolitis itself as well, or another etiology, or a combo of factors (7) Hyperkalemia: Plan: 2nd to ANDREA with K supplementation. resolved. (8) Hypothyroidism: Plan: TSH 1.7 Continue levothyroxine 88 mcg p.o. daily (9) HTN (hypertension): Plan: Stopped lisinopril due to ANDREA. Resumed BB today due to #1 lasix x 1 today (10) Depression: Plan: Continue her usual phenelzine (11) COPD (chronic obstructive pulmonary disease): Plan: Continue Trelegy Ellipta or hospital formulary equivalent Stable on [place] O2 no flare duonebs cxr today - no obvious pneumonia (12) Chronic respiratory failure with hypoxia: Plan: Baseline 2 L/min O2 keep oxygen saturation between 88 to 92% Cont inhalers Cont duonebs QID for cough/wheeze (13) Dementia: Plan: advanced daughter mentions probable superimposed delirium supportive care (14) Chronic right-sided congestive heart failure: Plan: echo today with cor pulmonale may have mild decompensation in the setting of recent IV fluids, #1 above, etc lasix 20mg IV x 1 re-eval tomorrow BB resumed hold BLANK Plan VTE prophylaxis - chemical prophylaxis contraindicated due to acute GI bleed daughter updated by phone again this evening I discussed w her day's events and my ongoing concerns of underlying infectious or inflammatory process driving her anorexia, the SVT, etc Admission and Anticipated Discharge Date Admission Date: December 10, 2022 Subjective called by nursing staff this am that patient had been laid flat for routine care and she began to c/o dyspnea about the same time the monitor room notified the nursing staff that her HR ac ruyely went to about 150 by the time of my arrival her HR was still about 150 on rhythm strip it appeared to be SVT as I was gowning to enter the room she was saying "help me - I'm in pain" as I approached her bed she was coughing I asked her where she hurt and she couldn't tell me by the time I listed to her heart her HR was now about 100 and irregular she denied feeling poorly - denied chest pain or dyspnea, but she visibly looked unwell tele overnight had been NSR prior to this event during my visit I ordered lasix 20mg x 1 obtained multiple 12-lead EKGs following conversion her repeat EKG showed NSR/sinus tach with PACs asa 81mg x 1 given bran placed about 1 hour later I checked on her and she was visibly more comfortable and not as tachypneic tele with ongoing NSR, no further SVT Review of Systems Review of Systems: Unobtainable due to cognitive status Physical Exam Physical Exam: gen - looks unwell, dyspneic, tachypneic; unable to provide any history mouth - MMM neck - no JVD heart - tachy with extra beast, s1 s2, no murmur lungs - no wheezes; bronchial cough (harsh); tachypneic; slight rales bases abd - soft, BS+, NT; ND; no HSM; no peritoneal signs ext - no edema, pulses 2+ b/l psych - oriented to person only Results & Data Results & Data ([facility]) Vital Signs (Past 12 Hours) Vital Signs Temp Pulse Pulse Resp BP Pulse Ox O2 Del Method 12/14/22 16:51 Nasal Cannula 12/14/22 15:39 36.6 C 64 20 113/75 96 Nasal Cannula 12/14/22 15:04 68 12/14/22 11:55 37.0 C 61 16 91/57 L 96 Nasal Cannula 12/14/22 09:33 36.7 C 152 H 22 114/78 91 Nasal Cannula 12/14/22 07:36 36.5 C 78 20 127/77 91 Nasal Cannula 12/14/22 07:33 79 O2 Flow Rate 12/14/22 16:51 4 12/14/22 15:39 4 12/14/22 15:04 12/14/22 11:55 4 12/14/22 09:33 4 12/14/22 07:36 3 12/14/22 07:33 Laboratory Results Laboratory Results - last 24 hr 12/14/22 12/14/22 12/14/22 06:17 06:17 11:07 Sodium 140 Potassium 3.9 Chloride 110 H Carbon Dioxide 25 Anion Gap 5 BUN 5 L Creatinine 0.65 Est Cr Clr Drug Dosing 58.5 Est GFR ( Amer) 95.8 Est GFR (Non-Af Amer) 82.7 BUN/Creatinine Ratio 7.7 L Glucose 87 Calcium 8.7 Total Bilirubin 0.5 Direct Bilirubin 0.0 AST 30 ALT 7 Alkaline Phosphatase 75 Troponin I High Sens 1249.1 H* C-Reactive Protein 14.54 H Total Protein 6.6 Albumin 3.1 L Procalcitonin 0.13 Urine Color Urine Appearance Urine pH Ur Specific [place] Urine Protein Urine Glucose (UA) Urine Ketones Urine Blood Urine Nitrite Urine Bilirubin Urine Urobilinogen Ur Leukocyte Esterase Urine WBC (Auto) Urine RBC (Auto) U Hyaline Cast (Auto) U Epithel Cells (Auto) Urine Bacteria (Auto) 12/14/22 12/14/22 16:00 18:37 Sodium Potassium Chloride Carbon Dioxide Anion Gap BUN Creatinine Est Cr Clr Drug Dosing Est GFR ( Amer) Est GFR (Non-Af Amer) BUN/Creatinine Ratio Glucose Calcium Total Bilirubin Direct Bilirubin AST ALT Alkaline Phosphatase Troponin I High Sens 973.8 H* D C-Reactive Protein Total Protein Albumin Procalcitonin Urine Color Dark Yellow Urine Appearance Cloudy A Urine pH 5.5 Ur Specific [place] 1.042 H Urine Protein 1+ H Urine Glucose (UA) Negative Urine Ketones Negative Urine Blood 3+ H Urine Nitrite Negative Urine Bilirubin Negative Urine Urobilinogen Negative Ur Leukocyte Esterase 2+ H Urine WBC (Auto) >30 H Urine RBC (Auto) 10-30 H U Hyaline Cast (Auto) 10-30 H U Epithel Cells (Auto) 10-20 H Urine Bacteria (Auto) 1+ H PG Care Time/CCT Total # of Minutes Spent Total Time Spent with Patient: Total time spent is greater than 50% in coordination of care (as documented) at patient's floor/unit and/or counseling patient: Coding Level of Care Code 77199 SUB INP/OBS CARE 3/50MIN Diagnoses SVT (supraventricular tachycardia) I47.1 Elevated troponin R77.8 Elevated erythrocyte sedimentation rate R70.0 Pancolitis K51.00 Acute blood loss anemia D62 GI bleed K92.2 GI bleed type/associated pathology: unspecified gastrointestinal hemorrhage type Hyperkalemia E87.5 Hypothyroidism E03.9 HTN (hypertension) I10 Depression F32.9 COPD (chronic obstructive pulmonary disease) J44.9 Chronic respiratory failure with hypoxia J96.11 Dementia F03.90 Chronic right-sided congestive heart failure I50.812 (6) GI bleed GI bleed type/associated pathology: unspecified gastrointestinal hemorrhage type Qualified Code(s): K92.2 - Gastrointestinal hemorrhage, unspecified
[2022-12-14] MEDS: cefTRIAXone SODIUM 1,000 MG in DEXTROSE 5% AD-VAN 50 ML IV SCH (18:37)
[2022-12-14] MEDS: MELATONIN 3 MG TAB PO SCH (22:23)
[2022-12-14] MEDS: METOPROLOL TARTRATE 50 MG TAB PO SCH (22:23)
[2022-12-14] MEDS: GABAPENTIN 100 MG CAP PO SCH (22:23)
--- NOTE | 2022-12-14 23:10 | Ultrasound Report ---
Exam(s): US GALLBLADDER EXAM: US Abdomen Limited, Gallbladder CLINICAL HISTORY: Reason for exam: distended GB, gallstones, leukocytosis. TECHNIQUE: Real-time ultrasound of the right upper quadrant with image documentation. COMPARISON: Comparison made to CT scan of the abdomen pelvis from December 13, 2022. FINDINGS: There is a right pleural effusion. Gallbladder: Normal gallbladder wall thickness. Cholelithiasis. Negative ultrasonic Fields's sign. Common bile duct: Unremarkable as visualized. No stones. No dilation. Pancreas: Unremarkable as visualized. IMPRESSION: Cholelithiasis without evidence of cholecystitis. Electronically signed by: Ignacia West MD 12/14/22 23:09 PM
[2022-12-15] MEDS: LEVOTHYROXINE SODIUM 88 MCG TABLET PO SCH (05:29)
[2022-12-15] MEDS: ACETAMINOPHEN 325 MG TAB PO SCH ×3 (09:12→20:32)
[2022-12-15] MEDS: ARIPIprazole 1 MG/ML ORAL SOLN 150 ML BTL PO SCH (09:17)
[2022-12-15] MEDS: ANUSOL SUPP 1 EA PR SCH ×3 (09:17→20:34)
[2022-12-15] MEDS: FLUTICASONE FUROATE 100MCG 14 PUFFS/INHALER INH SCH (09:19)
[2022-12-15] MEDS: UMECLIDINIUM/VILANTEROL 62.5/25MCG 7 PUFFS/INHALER INH SCH (09:19)
[2022-12-15] MEDS: NYSTATIN POWDER 15GM BTL EXT SCH ×3 (09:20→20:30)
[2022-12-15] MEDS: METOPROLOL TARTRATE 50 MG TAB PO SCH ×2 (09:21→20:32)
[2022-12-15] MEDS: PHENELZINE SULFATE 15 MG PO SCH ×3 (09:22→20:33)
[2022-12-15] MEDS: RASPBERRY SYRUP 5 ML UDP PO SCH ×4 (09:23→20:31)
[2022-12-15] MEDS: VANCOMYCIN HCL 125 MG/2.5ML SOLN PO SCH ×4 (09:27→20:36)
[2022-12-15] MEDS: ASPIRIN 81 MG ECTAB PO SCH (09:40)
[2022-12-15] MEDS: CLOPIDOGREL BISULFATE 75 MG TAB PO SCH (09:40)
[2022-12-15 11:04] LABS: BUN Creatinine Ratio 9.2 (10-20); Calcium 8.5 mg/dl (8.5-10.1); Creatinine Clr Calc Pharmacy 58.4 ml/min; Est GFR (African American) 95.8 ml/min; Est GFR (Non-African American) 82.7 ml/min; Magnesium 1.7 mg/dl (1.7-2.4); Potassium 3.5 mmol/L (3.5-5.1)
[2022-12-15 11:38] LABS: Basophils # (auto) 0.03 K/uL (0-0.2); Basophils % (auto) 0.3 %; Eosinophils # (auto) 0.52 K/uL (0-0.50); Eosinophils % (auto) 6.1 %; Hematocrit (blood only) 28.7 % (37.0-47.0); Hemoglobin 9.1 g/dl (12.0-16.0); Immature Granulocytes # (auto) 0.04 K/uL (0.01-0.20); Immature Granulocytes % (auto) 0.5 %; Lymphocytes # (auto) 1.41 K/uL (1.2-3.4); Lymphocytes % (auto) 16.4 %; Mean Corpuscular Hemoglobin 31.4 pg (25.0-34.0); Mean Corpuscular Hgb Conc 31.7 g/dL (32.0-36.0); Mean Platelet Volume 9.2 fL (9.4-12.4); Monocytes # (auto) 0.73 K/uL (0.11-0.59); Monocytes % (auto) 8.5 %; Neutrophils # (auto) 5.85 K/uL (1.40-6.50); Neutrophils % (auto) 68.2 %; Platelet Count 273 K/uL (130-400); Platelet Estimate Normal (Normal); RDW Coefficient of Variation 14.8 % (11.5-14.5); RDW Standard Deviation 53.9 fL (36.4-46.3); White Blood Count 8.58 K/ul (4.8-10.8)
[2022-12-15] MEDS: cefTRIAXone SODIUM 1,000 MG in DEXTROSE 5% AD-VAN 50 ML IV SCH (16:52)
[2022-12-15] MEDS: MELATONIN 3 MG TAB PO SCH (20:32)
[2022-12-15] MEDS: GABAPENTIN 100 MG CAP PO SCH (20:34)
--- NOTE | 2022-12-15 22:29 | Hospitalist Progress Note ---
Date of Service December 15, 2022 Assessment & Plan (1) SVT (supraventricular tachycardia): Plan: 12/14/22 -- SVT vs possible a.flutter 2:1 - suspect former as SVT broke with coughing. During the SVT I suspect she was having chest pain although she could not describe her symptoms. She does have a positive troponin - likely demand ischemia from the SVT itself, but I cannot rule out 100% a small NSTEMI event given her pain. [id number] her SVT resolved and has not recurred. Echo obtained - preserved EF with normal wall-motion. beta hakeem resumed. continue telemetry. electrolytes wnl. (2) Elevated troponin: Plan: either demand ischemia from #1 or small NSTEMI. hard to say which. either way her pain is resolved, SVT has not recurred. asa resumed. beta hakeem resumed. resume plavix today. (3) Elevated erythrocyte sedimentation rate: Plan: 2nd to UTI? 2nd to "pancolitis" as seen on admission CT? blood cx's neg. GB u/s negative for cholecystitis. thus far no evidence of infectious colitis although I was initially suspicious for such early in the hospital stay. cont to monitor. wbc count has normalized. (4) UTI (urinary tract infection): Plan: 2nd GNR cont rocephin follow cx likely d/c bran in am (5) Pancolitis: Plan: Present on admission CT. diff dx - infectious vs inflammatory vs ischemic. favored infectious colitis given her elevated WBC, etc. However, following admission, NEVER has had any diarrhea or recurrent bloody stools. Further, on repeat CT, her colitis is nearly resolved. Very odd for pancolitis to disappear that quickly on CT scan. etiology very uncertain. I have been treating her empirically for c.diff colitis as she has had such in the past. Awaiting a cdiff test to fully rule it out. However, again - NO STOOLS SINCE ADMISSION. doubt ischemia given that the colitis was the entire colon and there was no abd pain or peritoneal signs. lactate also wnl. doubt inflammatory - colitis radiographically improved w/o steroids. cont supportive care. since colitis is resolved allow regular diet. await c diff testing if able to produce stool. (6) Acute blood loss anemia: Plan: hemorrhoids? colitis? H/H stable over last 3 days. cont anusol for hemorrhoids. cbc am. (7) GI bleed: Plan: By report hemorrhoids noted by ER physician at presentation. Stopped asa/plavix initially - since no further bleeding and given #1, #2 -- resumed both in the last 24 hours. Cont Anusol 1 suppository [place] twice daily Continue to monitor H&H bleeding could have been from the pancolitis itself as well, or another etiology, or a combo of factors (8) Hyperkalemia: Plan: present on admission. 2nd to ANDREA with K supplementation. resolved. (9) Hypothyroidism: Plan: TSH 1.7 Continue levothyroxine 88 mcg p.o. daily (10) HTN (hypertension): Plan: Stopped lisinopril due to ANDREA. Resumed BB albeit at lower dose of 50mg BID (11) Depression: Plan: Continue her usual phenelzine (12) COPD (chronic obstructive pulmonary disease): Plan: Continue Trelegy Ellipta or hospital formulary equivalent Stable on [place] O2 no flare duonebs prn cxr today - no obvious pneumonia (13) Chronic respiratory failure with hypoxia: Plan: Baseline 2 L/min O2 keep oxygen saturation between 88 to 92% Cont inhalers Cont duonebs QID prn for cough/wheeze (14) Dementia: Plan: advanced daughter mentions probable superimposed delirium but mentation is better in comparison to earlier in the stay supportive care (15) Chronic right-sided congestive heart failure: Plan: echo this admission with cor pulmonale may have had mild decompensation in the setting of recent IV fluids, #1 above, etc lasix 20mg IV x 1 today appears compensated BB resumed would not resume BLANK at discharge since she is pre-load dependent Plan VTE prophylaxis - chemical prophylaxis contraindicated due to acute GI bleed at admission daughter updated at bedside today seems to be turning the corner Admission and Anticipated Discharge Date Admission Date: December 10, 2022 Subjective no SVT or other dysrhythmia overnight daughter present at bedside she feels her mother has improved; definitely better than the last few days appetite picking up - ate some items for her daughter, and did eat 25% of her meals as well pt unable to offer meaningful history but she smiled several times during the visit still no stool no blood per rectum Review of Systems Review of Systems: Unobtainable due to cognitive status Physical Exam Physical Exam: gen - looks much better today; NAD; even smiled mouth - MMM neck - no JVD heart - RRR, s1 s2, no murmur lungs - no wheezes; CTA b/l today abd - soft, BS+, NT; no HSM; modestly distended ext - no edema, pulses 2+ b/l psych - oriented to person only Results & Data Results & Data ([facility]) Vital Signs (Past 12 Hours) Vital Signs Temp Pulse Pulse Resp BP BP Pulse Ox 12/15/22 19:23 36.5 C 59 L 16 112/66 97 12/15/22 17:54 12/15/22 16:08 63 12/15/22 15:25 36.7 C 62 111/69 98 12/15/22 11:13 36.4 C L 55 L 18 108/65 97 O2 Del Method O2 Flow Rate 12/15/22 19:23 Nasal Cannula 4 12/15/22 17:54 Nasal Cannula 2 12/15/22 16:08 12/15/22 15:25 Nasal Cannula 4 12/15/22 11:13 Nasal Cannula 4 Laboratory Results Laboratory Results - last 24 hr 12/15/22 12/15/22 10:35 10:35 WBC 8.58 RBC 2.90 L Hgb 9.1 L Hct 28.7 L MCV 99.0 MCH 31.4 MCHC 31.7 L RDW Std Deviation 53.9 H RDW Coeff of Abby 14.8 H Plt Count 273 MPV 9.2 L Immature Gran % (Auto) 0.5 Neut % (Auto) 68.2 Lymph % (Auto) 16.4 [place] % (Auto) 8.5 Eos % (Auto) 6.1 Baso % (Auto) 0.3 Neut # (Auto) 5.85 Lymph # (Auto) 1.41 [place] # (Auto) 0.73 H Eos # (Auto) 0.52 H Baso # (Auto) 0.03 Immature Gran # (Auto) 0.04 Platelet Estimate Normal Sodium 139 Potassium 3.5 Chloride 109 H Carbon Dioxide 25 Anion Gap 5 BUN 6 Creatinine 0.65 Est Cr Clr Drug Dosing 58.4 Est GFR ( Amer) 95.8 Est GFR (Non-Af Amer) 82.7 BUN/Creatinine Ratio 9.2 L Glucose 141 H Calcium 8.5 Magnesium 1.7 Diagnostic Findings Gall bladder u/s - gallstones, but no pericholecystic fluid, no CBD dilatation, etc PG Care Time/CCT Total # of Minutes Spent Total Time Spent with Patient: Total time spent is greater than 50% in coordination of care (as documented) at patient's floor/unit and/or counseling patient: Coding Level of Care Code 70154 SUB INP/OBS CARE 2/35MIN Diagnoses SVT (supraventricular tachycardia) I47.1 Elevated troponin R77.8 Elevated erythrocyte sedimentation rate R70.0 UTI (urinary tract infection) N39.0 Pancolitis K51.00 Acute blood loss anemia D62 GI bleed K92.2 GI bleed type/associated pathology: unspecified gastrointestinal hemorrhage type Hyperkalemia E87.5 Hypothyroidism E03.9 HTN (hypertension) I10 Depression F32.9 COPD (chronic obstructive pulmonary disease) J44.9 Chronic respiratory failure with hypoxia J96.11 Dementia F03.90 Chronic right-sided congestive heart failure I50.812 (7) GI bleed GI bleed type/associated pathology: unspecified gastrointestinal hemorrhage type Qualified Code(s): K92.2 - Gastrointestinal hemorrhage, unspecified
[2022-12-16] MEDS: LEVOTHYROXINE SODIUM 88 MCG TABLET PO SCH (06:01)
[2022-12-16] MEDS: ACETAMINOPHEN 325 MG TAB PO SCH ×3 (08:25→21:37)
[2022-12-16] MEDS: ARIPIprazole 1 MG/ML ORAL SOLN 150 ML BTL PO SCH (08:25)
[2022-12-16] MEDS: METOPROLOL TARTRATE 50 MG TAB PO SCH ×2 (08:26→21:35)
[2022-12-16] MEDS: ASPIRIN 81 MG ECTAB PO SCH (08:26)
[2022-12-16] MEDS: FLUTICASONE FUROATE 100MCG 14 PUFFS/INHALER INH SCH (08:26)
[2022-12-16] MEDS: CLOPIDOGREL BISULFATE 75 MG TAB PO SCH (08:26)
[2022-12-16] MEDS: NYSTATIN POWDER 15GM BTL EXT SCH ×3 (08:26→21:37)
[2022-12-16] MEDS: PHENELZINE SULFATE 15 MG PO SCH ×3 (08:27→21:38)
[2022-12-16] MEDS: UMECLIDINIUM/VILANTEROL 62.5/25MCG 7 PUFFS/INHALER INH SCH (08:27)
[2022-12-16] MEDS: RASPBERRY SYRUP 5 ML UDP PO SCH ×4 (09:46→21:33)
[2022-12-16] MEDS: VANCOMYCIN HCL 125 MG/2.5ML SOLN PO SCH ×4 (09:46→21:33)
[2022-12-16] MEDS: ANUSOL SUPP 1 EA PR SCH ×2 (09:46→21:36)
[2022-12-16] MEDS ORDERED: SODIUM CHLORIDE 0.9% 500 ML IV SCH (15:15)
[2022-12-16] MEDS ORDERED: bisacodyL 5 MG TABEC PO ONE (16:20)
--- NOTE | 2022-12-16 16:22 | Hospitalist Progress Note ---
Date of Service December 16, 2022 Assessment & Plan (1) SVT (supraventricular tachycardia): Plan: 12/14/22 -- SVT vs possible a.flutter 2:1 - suspect former as SVT broke with coughing. During the SVT I suspect she was having chest pain although she could not describe her symptoms. She did have a positive troponin - likely demand ischemia from the SVT itself, but I cannot rule out that she had a small NSTEMI event given her pain. [id number] her SVT resolved and has not recurred. Echo obtained - preserved EF with normal wall-motion. beta hakeem resumed. continue telemetry. electrolytes wnl. (2) Elevated troponin: Plan: either demand ischemia from #1 or small NSTEMI. hard to say which. either way her pain has not recurred. SVT has not recurred. asa resumed. beta hakeem resumed. plavix resumed. (3) Elevated erythrocyte sedimentation rate: Plan: 2nd to UTI? 2nd to "pancolitis" as seen on admission CT? blood cx's neg. GB u/s negative for cholecystitis. c diff gene returned negative today. cont to monitor. wbc count has normalized. (4) UTI (urinary tract infection): Plan: 2nd citrobacter received 2 doses of rocephin -- stop such today convert to PO cefdinir 300mg BID x 5 days to complete course d/c bran in am on 12/17/22 does not have a bran chronically at baseline (5) Pancolitis: Plan: Present on admission CT. diff dx - infectious vs inflammatory vs ischemic. I initially favored infectious colitis given her elevated WBC, etc. However, following admission, NEVER had any diarrhea or recurrent bloody stools. Further, on repeat CT, her colitis was resolved. Very odd for pancolitis to disappear that quickly on CT scan. etiology very uncertain. c diff gene returned negative. d/c vancomycin PO. doubt she had ischemia given that the colitis was the entire colon and there was no abd pain or peritoneal signs at time of admission nor elevation in lactate. doubt inflammatory - colitis radiographically improved w/o steroids. tolerating diet without ANY GI symptoms. (6) Acute blood loss anemia: Plan: likely 2nd to hemorrhoids H/H stable cont anusol for hemorrhoids cbc am for stability (7) GI bleed: Plan: By report hemorrhoids noted by ER physician at time of presentation. Stopped asa/plavix initially - since no further bleeding and given #1, #2 -- resumed both. Had large bowel movement today that was nonbloody. Cont Anusol 1 suppository [place] twice daily Continue to monitor H&H bleeding could have been from another colonic issue but since there has been no recurrent bleeding defer on GI consult, endoscopy, etc. (8) Hyperkalemia: Plan: present on admission. 2nd to ANDREA with K supplementation. resolved. (9) Hypothyroidism: Plan: TSH 1.7 Continue levothyroxine 88 mcg p.o. daily (10) HTN (hypertension): Plan: Stopped lisinopril due to ANDREA. Resumed BB albeit at lower dose of 50mg BID metoprolol --- controlled (11) Depression: Plan: Continue her usual phenelzine (12) COPD (chronic obstructive pulmonary disease): Plan: Continue Trelegy Ellipta or hospital formulary equivalent Stable on [place] O2 no flare duonebs prn most recent cxr - no obvious pneumonia (13) Chronic respiratory failure with hypoxia: Plan: Baseline 2 L/min O2 keep oxygen saturation between 88 to 92% Cont inhalers Cont duonebs QID prn for cough/wheeze (14) Dementia: Plan: advanced daughter mentions probable superimposed delirium but mentation is better in comparison to earlier in the stay supportive care (15) Chronic right-sided congestive heart failure: Plan: echo this admission with cor pulmonale today appears compensated or slightly dry BB resumed resume lasix 20mg po daily at discharge would not resume BLANK at discharge since she is pre-load dependent Plan VTE prophylaxis - chemical prophylaxis contraindicated due to acute GI bleed at admission daughter updated at bedside yesterday remove shant in am tomorrow back to SNF on 12/17/22 ?? Admission and Anticipated Discharge Date Admission Date: December 10, 2022 Subjective tele overnight - NSR no SVT staff report LARGE bowel movement - modestly loose, brown in color, no melena or bright red blood during the visit the patient was resting comfortably she was laughing and smiling today interactive due to advanced dementia unable to offer much history but she did deny any pain in any location eating 25-50% of meals per flowsheets (improved from several days ago) Review of Systems Review of Systems: Unobtainable due to cognitive status Physical Exam Physical Exam: gen - looks very good, NAD mouth - MMM neck - no JVD heart - RRR, s1 s2, no murmur lungs - no wheezes; CTA b/l abd - soft, BS+, NT; no HSM; modestly distended (I saw patient prior to her large bowel movement) ext - no edema, pulses 2+ b/l psych - oriented to person only Results & Data Results & Data ([place]) Vital Signs (Past 12 Hours) Vital Signs Temp Pulse Pulse Resp BP BP Pulse Ox 12/16/22 15:40 36.5 C 60 18 108/67 96 12/16/22 08:00 12/16/22 11:17 36.5 C 69 18 115/60 93 12/16/22 07:29 61 12/16/22 07:13 36.8 C 60 18 105/70 96 O2 Del Method O2 Flow Rate 12/16/22 15:40 Nasal Cannula 4 12/16/22 08:00 Nasal Cannula 4 12/16/22 11:17 Room Air 12/16/22 07:29 12/16/22 07:13 Nasal Cannula 4 Laboratory Results Laboratory Results - last 48 hr 12/15/22 12/15/22 12/16/22 10:35 10:35 17:04 WBC 8.58 RBC 2.90 L Hgb 9.1 L Hct 28.7 L MCV 99.0 MCH 31.4 MCHC 31.7 L RDW Std Deviation 53.9 H RDW Coeff of Abby 14.8 H Plt Count 273 MPV 9.2 L Immature Gran % (Auto) 0.5 Neut % (Auto) 68.2 Lymph % (Auto) 16.4 [place] % (Auto) 8.5 Eos % (Auto) 6.1 Baso % (Auto) 0.3 Neut # (Auto) 5.85 Lymph # (Auto) 1.41 [place] # (Auto) 0.73 H Eos # (Auto) 0.52 H Baso # (Auto) 0.03 Immature Gran # (Auto) 0.04 Platelet Estimate Normal Sodium 139 Potassium 3.5 Chloride 109 H Carbon Dioxide 25 Anion Gap 5 BUN 6 Creatinine 0.65 Est Cr Clr Drug Dosing 58.4 Est GFR ( Amer) 95.8 Est GFR (Non-Af Amer) 82.7 BUN/Creatinine Ratio 9.2 L Glucose 141 H Calcium 8.5 Magnesium 1.7 Stl C. diff Tox B Gene Negative Cdiff Gene PG Care Time/CCT Total # of Minutes Spent Total Time Spent with Patient: Total time spent is greater than 50% in coordination of care (as documented) at patient's floor/unit and/or counseling patient: Coding Level of Care Code 04807 SUB INP/OBS CARE 2/35MIN Diagnoses SVT (supraventricular tachycardia) I47.1 Elevated troponin R77.8 Elevated erythrocyte sedimentation rate R70.0 UTI (urinary tract infection) N39.0 Pancolitis K51.00 Acute blood loss anemia D62 GI bleed K92.2 GI bleed type/associated pathology: unspecified gastrointestinal hemorrhage type Hyperkalemia E87.5 Hypothyroidism E03.9 HTN (hypertension) I10 Depression F32.9 COPD (chronic obstructive pulmonary disease) J44.9 Chronic respiratory failure with hypoxia J96.11 Dementia F03.90 Chronic right-sided congestive heart failure I50.812 (7) GI bleed GI bleed type/associated pathology: unspecified gastrointestinal hemorrhage type Qualified Code(s): K92.2 - Gastrointestinal hemorrhage, unspecified
[2022-12-16] MEDS: POLYETHYLENE (MIRALAX) 17 GM PACK PO SCH (18:02)
[2022-12-16] MEDS: CEFDINIR 300 MG CAP PO SCH (18:04)
[2022-12-16] MEDS: MELATONIN 3 MG TAB PO SCH (21:36)
[2022-12-16] MEDS: GABAPENTIN 100 MG CAP PO SCH (22:14)
[2022-12-17] MEDS: LEVOTHYROXINE SODIUM 88 MCG TABLET PO SCH (05:48)
[2022-12-17 06:20] LABS: Hematocrit (blood only) 27.9 % (37.0-47.0); Hemoglobin 8.7 g/dl (12.0-16.0); Mean Corpuscular Hemoglobin 31.2 pg (25.0-34.0); Mean Corpuscular Hgb Conc 31.2 g/dL (32.0-36.0); Mean Platelet Volume 8.7 fL (9.4-12.4); Platelet Count 264 K/uL (130-400); RDW Coefficient of Variation 14.6 % (11.5-14.5); RDW Standard Deviation 53.3 fL (36.4-46.3); Red Blood Count 2.79 M/uL (4.20-5.40); White Blood Count 7.39 K/ul (4.8-10.8)
[2022-12-17 06:41] LABS: BUN Creatinine Ratio 6.7 (10-20); Calcium 8.4 mg/dl (8.5-10.1); Creatinine Clr Calc Pharmacy 63.5 ml/min; Est GFR (African American) 98.4 ml/min; Est GFR (Non-African American) 84.9 ml/min; Potassium 3.6 mmol/L (3.5-5.1)
[2022-12-17] MEDS: ADVANCED PROBIOTIC 1250 MG CAPSULE PO SCH (07:48)
[2022-12-17] MEDS: METOPROLOL TARTRATE 50 MG TAB PO SCH ×2 (07:49→20:59)
[2022-12-17] MEDS: CLOPIDOGREL BISULFATE 75 MG TAB PO SCH (07:49)
[2022-12-17] MEDS: ASPIRIN 81 MG ECTAB PO SCH (07:49)
[2022-12-17] MEDS: CEFDINIR 300 MG CAP PO SCH ×2 (07:49→20:58)
[2022-12-17] MEDS: ACETAMINOPHEN 325 MG TAB PO SCH ×3 (07:50→20:50)
[2022-12-17] MEDS: ANUSOL SUPP 1 EA PR SCH ×3 (07:50→20:49)
[2022-12-17] MEDS: PHENELZINE SULFATE 15 MG PO SCH ×3 (07:51→20:51)
[2022-12-17] MEDS: UMECLIDINIUM/VILANTEROL 62.5/25MCG 7 PUFFS/INHALER INH SCH (07:52)
[2022-12-17] MEDS: POLYETHYLENE (MIRALAX) 17 GM PACK PO SCH (07:52)
[2022-12-17] MEDS: NYSTATIN POWDER 15GM BTL EXT SCH ×3 (07:52→20:51)
[2022-12-17] MEDS: FLUTICASONE FUROATE 100MCG 14 PUFFS/INHALER INH SCH (09:00)
[2022-12-17] MEDS: ARIPIprazole 1 MG/ML ORAL SOLN 150 ML BTL PO SCH (09:54)
--- NOTE | 2022-12-17 15:30 | Hospitalist Progress Note ---
Date of Service December 17, 2022 Assessment & Plan (1) SVT (supraventricular tachycardia): Plan: Now resolved patient now in sinus rhythm Echo obtained - preserved EF with normal wall-motion. beta hakeem resumed. continue telemetry. electrolytes wnl. (2) Elevated troponin: Plan: Likely due to type 2 CO due to demand ischemia. asa resumed. beta hakeem resumed. plavix resumed. (3) UTI (urinary tract infection): Plan: 2nd citrobacter received 2 doses of rocephin convert to PO cefdinir 300mg BID x 5 days to complete course (4) Pancolitis: Plan: Present on admission CT. diff dx - infectious vs inflammatory vs ischemic. I initially favored infectious colitis given her elevated WBC, etc. However, following admission, NEVER had any diarrhea or recurrent bloody stools. Further, on repeat CT, her colitis was resolved. Could have been artifact (5) Acute blood loss anemia: Plan: likely 2nd to hemorrhoids H/H stable cont anusol for hemorrhoids cbc am for stability (6) GI bleed: Plan: By report hemorrhoids noted by ER physician at time of presentation. Stopped asa/plavix initially - since no further bleeding and given #1, #2 -- resumed both. Had large bowel movement today that was nonbloody. Cont Anusol 1 suppository MA twice daily Continue to monitor H&H bleeding could have been from another colonic issue but since there has been no recurrent bleeding defer on GI consult, endoscopy, etc. (7) Elevated erythrocyte sedimentation rate: Plan: 2nd to UTI? 2nd to "pancolitis" as seen on admission CT? blood cx's neg. GB u/s negative for cholecystitis. c diff gene returned negative today. cont to monitor. wbc count has normalized. (8) Hyperkalemia: Plan: present on admission. 2nd to ANDREA with K supplementation. resolved. (9) Hypothyroidism: Plan: TSH 1.7 Continue levothyroxine 88 mcg p.o. daily (10) HTN (hypertension): Plan: Stopped lisinopril due to ANDREA. Resumed BB albeit at lower dose of 50mg BID metoprolol --- controlled (11) Depression: Plan: Continue her usual phenelzine (12) COPD (chronic obstructive pulmonary disease): Plan: Continue Trelegy Ellipta or hospital formulary equivalent Stable on NC O2 no flare duonebs prn most recent cxr - no obvious pneumonia (13) Chronic respiratory failure with hypoxia: Plan: Baseline 2 L/min O2 keep oxygen saturation between 88 to 92% Cont inhalers Cont duonebs QID prn for cough/wheeze (14) Dementia: Plan: advanced daughter mentions probable superimposed delirium but mentation is better in comparison to earlier in the stay supportive care (15) Chronic right-sided congestive heart failure: Plan: echo this admission with cor pulmonale today appears compensated or slightly dry BB resumed resume lasix 20mg po daily at discharge would not resume BLANK at discharge since she is pre-load dependent Plan VTE prophylaxis - chemical prophylaxis contraindicated due to acute GI bleed at admission back to SNF when accepted Admission and Anticipated Discharge Date Admission Date: December 10, 2022 Subjective patient seen and examined, she has dementia, denies any new complaints Review of Systems Review of Systems: unreliable due to dementia Physical Exam Physical Exam: The patient is awake, confused. HEENT--PERRL, EOMI, mucous membranes and oropharynx mildly dry Neck--supple. No JVD. No bruits. Thyroid normal, trachea midline, no adenopathy. Heart--normal S1 and S2. No murmurs, rubs or gallops. Lungs--clear bilaterally, no respiratory distress, no accessory muscle use. Abdomen--normal bowel sounds and soft. Mild epigastric and left sided abdominal pain Extremities--no cyanosis or clubbing. No edema. Dermatologic--normal skin turgor, normal color, no abnormal lymph nodes, no rash. Neurologic--cranial nerves II through XII grossly intact. Rheumatologic--normal range of motion. Psychiatric--normal affect. Results & Data Results & Data ([facility]) Vital Signs (Past 12 Hours) Vital Signs Temp Pulse Pulse Resp BP Pulse Ox O2 Del Method 12/17/22 11:01 97.7 F 68 18 116/55 L 95 Nasal Cannula 12/17/22 08:00 Nasal Cannula 12/17/22 07:26 97.5 F L 55 L 18 111/70 97 Nasal Cannula 12/17/22 07:02 59 L 12/17/22 04:00 97.5 F L 58 L 20 107/66 97 Nasal Cannula O2 Flow Rate 12/17/22 11:01 3 03/07/23 08:00 4 12/17/22 07:26 4 12/17/22 07:02 12/17/22 04:00 4 PG Care Time/CCT Total # of Minutes Spent Total Time Spent with Patient: Total time spent is greater than 50% in coordination of care (as documented) at patient's floor/unit and/or counseling patient: Coding Level of Care Code 21229 SUB INP/OBS CARE 2/35MIN Diagnoses SVT (supraventricular tachycardia) I47.1 Elevated troponin R77.8 UTI (urinary tract infection) N39.0 Pancolitis K51.00 Acute blood loss anemia D62 GI bleed K92.2 GI bleed type/associated pathology: unspecified gastrointestinal hemorrhage type Elevated erythrocyte sedimentation rate R70.0 Hyperkalemia E87.5 Hypothyroidism E03.9 HTN (hypertension) I10 Depression F32.9 COPD (chronic obstructive pulmonary disease) J44.9 Chronic respiratory failure with hypoxia J96.11 Dementia F03.90 Chronic right-sided congestive heart failure I50.812 Time Spent (min) 35 (6) GI bleed GI bleed type/associated pathology: unspecified gastrointestinal hemorrhage type Qualified Code(s): K92.2 - Gastrointestinal hemorrhage, unspecified
[2022-12-17] MEDS: MELATONIN 3 MG TAB PO SCH (20:51)
[2022-12-17] MEDS: GABAPENTIN 100 MG CAP PO SCH (20:57)
[2022-12-18] MEDS: LEVOTHYROXINE SODIUM 88 MCG TABLET PO SCH (05:33)
[2022-12-18] MEDS: ADVANCED PROBIOTIC 1250 MG CAPSULE PO SCH (08:09)
[2022-12-18] MEDS: CLOPIDOGREL BISULFATE 75 MG TAB PO SCH (08:09)
[2022-12-18] MEDS: ARIPIprazole 1 MG/ML ORAL SOLN 150 ML BTL PO SCH (08:10)
[2022-12-18] MEDS: ASPIRIN 81 MG ECTAB PO SCH (08:10)
[2022-12-18] MEDS: ANUSOL SUPP 1 EA PR SCH (08:10)
[2022-12-18] MEDS: POLYETHYLENE (MIRALAX) 17 GM PACK PO SCH (08:10)
[2022-12-18] MEDS: UMECLIDINIUM/VILANTEROL 62.5/25MCG 7 PUFFS/INHALER INH SCH (08:10)
[2022-12-18] MEDS: PHENELZINE SULFATE 15 MG PO SCH (08:11)
[2022-12-18] MEDS: NYSTATIN POWDER 15GM BTL EXT SCH (08:11)
[2022-12-18] MEDS: FLUTICASONE FUROATE 100MCG 14 PUFFS/INHALER INH SCH (08:11)
[2022-12-18] MEDS: ACETAMINOPHEN 325 MG TAB PO SCH (08:12)
[2022-12-18] MEDS: METOPROLOL TARTRATE 50 MG TAB PO SCH (09:00)
[2022-12-18] MEDS: CEFDINIR 300 MG CAP PO SCH (09:14)
--- NOTE | 2022-12-18 13:11 | Discharge Summary ---
Date of Service December 18, 2022 Admission HPI Per Admitting Provider Shahnaz Mantilla is an 82-year-old female with dementia who presents to the ER from [facility] with bright red blood in stool. This morning her carers noted her briefs were full of blood and on having a bowel movement there was further bright red blood in stool. She has a history of hemorrhoids. Unable to get an accurate history from the patient due to history of dementia. She reports no current shortness of breath, chest pain or dizziness. Possible nausea yesterday, no abdominal pain. Last antibiotic use 7 days amoxicillin October 29. Lives at [facility]. when going to the bathroom this morning brief was full of blood and blood in bowel. BP low and patient pale. Concern it was more than hemorrhoids. Principal Diagnosis UTI, GI bleed Discharge Exam The patient is awake, confused. HEENT--PERRL, EOMI, mucous membranes and oropharynx mildly dry Neck--supple. No JVD. No bruits. Thyroid normal, trachea midline, no adenopathy. Heart--normal S1 and S2. No murmurs, rubs or gallops. Lungs--clear bilaterally, no respiratory distress, no accessory muscle use. Abdomen--normal bowel sounds and soft. Mild epigastric and left sided abdominal pain Extremities--no cyanosis or clubbing. No edema. Dermatologic--normal skin turgor, normal color, no abnormal lymph nodes, no rash. Neurologic--cranial nerves II through XII grossly intact. Rheumatologic--normal range of motion. Psychiatric--normal affect. Discharge Data Allergies Allergy/AdvReac Type Severity Reaction Status Date / Time bee venom protein (honey bee) Allergy Unknown Unknown Verified 12/10/22 15:33 codeine Allergy Unknown Unknown Verified 12/10/22 15:33 levofloxacin [From Levaquin] Allergy Unknown Unknown Verified 12/10/22 15:33 meperidine [From Demerol] Allergy Unknown Unknown Verified 12/10/22 15:33 morphine Allergy Unknown Unknown Verified 12/10/22 15:33 Consultations 12/10/22 14:22 ED Decision to Admit Stat Ordered Studies 12/10/22 15:42 CT Abd and Pelvis [CT abd pelvis IV con only] Stat 12/13/22 17:14 CT abd pelvis IV con only Urgent 12/14/22 18:15 US gallbladder Urgent Hospital Course (1) SVT (supraventricular tachycardia): Now resolved patient now in sinus rhythm Echo obtained - preserved EF with normal wall-motion. beta hakeem resumed. continue telemetry. electrolytes wnl. (2) Elevated troponin: Likely due to type 2 IN due to demand ischemia. asa resumed. beta hakeem resumed. plavix resumed. (3) UTI (urinary tract infection): 2nd citrobacter received 2 doses of rocephin convert to PO cefdinir 300mg BID x 5 days to complete course (4) Pancolitis: Present on admission CT. diff dx - infectious vs inflammatory vs ischemic. I initially favored infectious colitis given her elevated WBC, etc. However, following admission, NEVER had any diarrhea or recurrent bloody stools. Further, on repeat CT, her colitis was resolved. Could have been artifact (5) Acute blood loss anemia: likely 2nd to hemorrhoids H/H stable cont anusol for hemorrhoids cbc am for stability (6) GI bleed: By report hemorrhoids noted by ER physician at time of presentation. Stopped asa/plavix initially - since no further bleeding and given #1, #2 -- resumed both. Had large bowel movement today that was nonbloody. Cont Anusol 1 suppository NC twice daily Continue to monitor H&H bleeding could have been from another colonic issue but since there has been no recurrent bleeding defer on GI consult, endoscopy, etc. (7) Elevated erythrocyte sedimentation rate: 2nd to UTI? 2nd to "pancolitis" as seen on admission CT? blood cx's neg. GB u/s negative for cholecystitis. c diff gene returned negative today. cont to monitor. wbc count has normalized. (8) Hyperkalemia: present on admission. 2nd to ANDREA with K supplementation. resolved. (9) Hypothyroidism: TSH 1.7 Continue levothyroxine 88 mcg p.o. daily (10) HTN (hypertension): Stopped lisinopril due to ANDREA. Resumed BB albeit at lower dose of 50mg BID metoprolol --- controlled (11) Depression: Continue her usual phenelzine (12) COPD (chronic obstructive pulmonary disease): Continue Trelegy Ellipta or hospital formulary equivalent Stable on NC O2 no flare duonebs prn most recent cxr - no obvious pneumonia (13) Chronic respiratory failure with hypoxia: Baseline 2 L/min O2 keep oxygen saturation between 88 to 92% Cont inhalers Cont duonebs QID prn for cough/wheeze (14) Dementia: advanced daughter mentions probable superimposed delirium but mentation is better in comparison to earlier in the stay supportive care (15) Chronic right-sided congestive heart failure: echo this admission with cor pulmonale today appears compensated or slightly dry BB resumed resume lasix 20mg po daily at discharge Plan VTE prophylaxis - chemical prophylaxis contraindicated due to acute GI bleed at admission back to SNF when accepted Total Time Total Time Spent Total Time Spent (In Minutes): 35 Discharge Plan Discharge Items Patient Disposition: Transfer Detention Fac Reason For Visit: ACUTE GI BLEED, HEMORRHOIDS Discharge Diagnosis: GI bleed, UTI Activity: Resume your previous activity Non-emergency contact: Primary Care Provider Call non-emergency contact if: you have any medication questions Follow-up/Referrals: Eran Pat at [place] [Primary Care Provider] - Diet: Regular Addtl Attending Provider Instructions: Please make appointment to follow up with your regular PCP Pending Studies at Discharge: No Stand-Alone Forms: My [facility] Skilled Items Patient informed of condition?: Yes DNR: Yes Discharge Level of Care: Skilled Communicable Disease: No Discharge Prognosis: Stable Lines: None Urinary Catheter: No Medications and DC Order Prescriptions: New metoprolol tartrate 50 mg Tablet 50 mg PO BID 30 Days Qty: 60 0RF cefdinir 300 mg Capsule 300 mg PO BID 3 Days Qty: 6 0RF Continued (DME) Portable Oxygen Misc See Rx Instructions .MEDSUPPLY Qty: 1 0RF Rx Instructions: Oxygen 2 liters via nasal cannula on exertion with portable concentrator. DOT 99 alendronate 70 mg tablet 70 mg PO WK Rx Instructions: Give every aspirin 81 mg tablet,delayed release (DR/EC) 81 mg PO DAILY clopidogrel 75 mg tablet 75 mg PO DAILY multivitamin [Daily-Karla] tablet 1 tab PO DAILY furosemide 20 mg tablet 20 mg PO QAM levothyroxine 88 mcg capsule 88 mcg PO DAILY lisinopril 5 mg tablet 5 mg PO DAILY potassium chloride 20 mEq tablet extended release 20 meq PO BID ipratropium-albuterol 0.5 mg-3 mg(2.5 mg base)/3 mL solution for nebulization 3 ml inhalation Q8H PRN (Reason: shortness of breath or wheezing) Qty: 180 2RF (DME) Flutter Valve Device See Rx Instructions .MEDSUPPLY Qty: 1 0RF Rx Instructions: Use it every 6 hours when awake. hydrocortisone [Preparation H Hydrocortisone] 1 % cream 1 appln TOP Q12H PRN (Reason: hemorrhoids) albuterol sulfate 90 mcg/actuation HFA aerosol inhaler 2 puff inhalation Q6H PRN (Reason: Shortness Of Breath Or Wheezing) Qty: 18 3RF calcium carbonate-vitamin D3 [Calcium 600 + D(3)] 600 mg(1,500mg) -400 unit Tablet 1 tab PO DAILY phenelzine 15 mg tablet See Rx Instructions .ROUTE .COMPLEX Rx Instructions: 15 mg orally; TAKES 30 MG QAM & HS, TAKES 15 MG Q AFTERNOON. psyllium husk [Metamucil] 0.4 gram Capsule 0.4 g PO QAM albuterol sulfate 2.5 mg /3 mL (0.083 %) Solution For Nebulization 2.5 mg INHALATION Q4H PRN (Reason: Shortness Of Breath) acetaminophen [Tylenol 8 Hour] 650 mg Tablet Extended Release 650 mg PO Q6H MDD 3 GRAMS/24 HOURS PRN (Reason: Pain) acetaminophen [Tylenol 8 Hour] 650 mg Tablet Extended Release 650 mg PO TID gabapentin 100 mg Capsule 100 mg PO HS Culturelle 10 billion cell Capsule 1 cap PO DAILY docusate sodium 100 mg Tablet 100 mg PO DAILY melatonin 1 mg Tablet 2 mg PO HS aripiprazole [Abilify] 2 mg Tablet 1 mg PO DAILY Biofreeze (menthol) 4 % Gel 1 applic TOPICAL Q4H PRN (Reason: Back Pain) Trelegy Ellipta 100-62.5-25 mcg Blister With Device 1 inh INHALATION DAILY Discontinued metoprolol tartrate 50 mg Tablet 75 mg PO BID Discharge Orders: Discharge Order (Routine); Ordered 12/18/22 Ordered By: Roscoe Winter/Other Patient Handouts: GI Bleeding Causes and Tests, ED Urinary Retention, Female Admission Data Admit Date/Time: 12/10/22 16:00 Attending Provider: Roscoe Barkley Admit Provider: Uli Feldman Primary Care Provider: Eran Pat [facility] Other Providers: Uli Feldman ; Eran aPt [facility] Other Interventions: Discharge Summary Assessment (RN) Last Done: 12/18/22 10:47 Coding Level of Care Code 82555 INP/OBS DISCH >30 MIN Diagnoses SVT (supraventricular tachycardia) I47.1 Elevated troponin R77.8 UTI (urinary tract infection) N39.0 Pancolitis K51.00 Acute blood loss anemia D62 GI bleed K92.2 GI bleed type/associated pathology: unspecified gastrointestinal hemorrhage type Elevated erythrocyte sedimentation rate R70.0 Hyperkalemia E87.5 Hypothyroidism E03.9 HTN (hypertension) I10 Depression F32.9 COPD (chronic obstructive pulmonary disease) J44.9 Chronic respiratory failure with hypoxia J96.11 Dementia F03.90 Chronic right-sided congestive heart failure I50.812 Time Spent (min) 35
--- NOTE | 2022-12-19 06:10 | Electrocardiogram Report ---
Test Reason : Blood Pressure : / mmHG Vent. Rate : 059 BPM Atrial Rate : 059 BPM P-R Int : 168 ms QRS Dur : 078 ms QT Int : 476 ms P-R-T Axes : 059 044 027 degrees QTc Int : 471 ms Sinus bradycardia Possible Inferior infarct (cited on or before 14-DEC-2022) Cannot rule out Anterior infarct (cited on or before 14-DEC-2022) Abnormal ECG When compared with ECG of 14-DEC-2022 10:18, Premature atrial complexes are no longer Present Vent. rate has decreased BY 38 BPM T wave inversion less evident in Anterolateral leads Confirmed by Billy Mcdermott ([id number]) on 12/19/2022 6:10:43 AM Referred By: REFERRED SELF Confirmed By:Billy Mcdermott
--- NOTE | 2022-12-23 08:02 | Coding Query ---
CODING QUERY To promote full compliance with coding requirements relating to patient care, provider participation is requested in all cases of local flatbed driver uncertainty. Please assist us with the question(s) below: Coding Question(s): Please specify below, in your clinical opinion, the most likely source of the GI Bleed: ( ) most likely due to hemorrhoids ( ) most likely due to another colonic issue: Please specify further below, regarding colonic issue: ( ) Specified Colonic issue - Please Specify ( ) Unspecified Colonic issue ( ) most likely due to Other: Please Specify ( x) due to Unknown likely source Physician's Response(s): Thank you Debbie Cleaning Principal Diagnosis: "that condition established after study, to be chiefly responsible for occasioning the admission of the patient to the hospital for care." Co-Existing Principal Diagnosis: "when two or more diagnoses equally meet the criteria for principal diagnosis as determined by the circumstances of admission, diagnostic work up, and/or therapy provided, and the Alphabetic Index, Tabular List, or another coding guideline does not provide sequencing direction, any one of the diagnoses may be sequenced first." "When the physician has documented what appears to be a current diagnosis in the body of the record, but has not included the diagnosis in the final diagnostic statement, the physician should be asked whether the diagnosis should be added." ([facility] 2 QTR90. p3-4) MIHIR
--- NOTE | 2022-12-23 08:10 | Coding Query ---
CODING QUERY To promote full compliance with coding requirements relating to patient care, provider participation is requested in all cases of flexographic press set up operator uncertainty. Please assist us with the question(s) below: Coding Question(s): There is documentation, as on the 12/16 Progress Note of, "Pancolitis: Plan: Present on admission CT. diff dx - infectious vs inflammatory vs ischemic. I initially favored infectious colitis given her elevated WBC, etc. However, following admission, NEVER had any diarrhea or recurrent bloody stools. Further, on repeat CT, her colitis was resolved. Very odd for pancolitis to disappear that quickly on CT scan. etiology very uncertain. c diff gene returned negative. d/c vancomycin PO. doubt she had ischemia given that the colitis was the entire colon and there was no abd pain or peritoneal signs at time of admission nor elevation in lactate. doubt inflammatory - colitis radiographically improved w/o steroids. tolerating diet without ANY GI symptoms", and the Discharge Summary documents, "Pancolitis: Present on admission CT. diff dx - infectious vs inflammatory vs ischemic. I initially favored infectious colitis given her elevated WBC, etc. However, following admission, NEVER had any diarrhea or recurrent bloody stools. Further, on repeat CT, her colitis was resolved. Could have been artifact". Please specify below, in your clinical opinion, regarding Pancolitis/colitis: ( x ) Pancolitis and any colitis was Ruled-Out ( ) There is likely Infectious Colitis ( ) There is likely Other Colitis: Please Specify ( ) Other: Please Specify Physician's Response(s): Thank you Debbie Cleaning Principal Diagnosis: "that condition established after study, to be chiefly responsible for occasioning the admission of the patient to the hospital for care." Co-Existing Principal Diagnosis: "when two or more diagnoses equally meet the criteria for principal diagnosis as determined by the circumstances of admission, diagnostic work up, and/or therapy provided, and the Alphabetic Index, Tabular List, or another coding guideline does not provide sequencing direction, any one of the diagnoses may be sequenced first." "When the physician has documented what appears to be a current diagnosis in the body of the record, but has not included the diagnosis in the final diagnostic statement, the physician should be asked whether the diagnosis should be added." (Source Coding [facility] 2 QTR90. p3-4) MIHIR
== END 2022-12-18 13:15 | DRG 377 ==
LOC: ED 12:08 → SUATTDRO 16:00 → 2N 16:00